=== PATIENT | female | born 1955 | race American Indian/Alaskan Native ===

== ENCOUNTER 2016-09-30 19:29 | Inpatient (IN) | payer MEDICAID ==
[2016-09-30 19:52] LABS: Basophils % (Auto) 0.7 % (0.0-1.8); Eosinophils % (Auto) 1.5 % (0.0-4.3); Hematocrit 22.8 % (30.3-42.9); Hemoglobin 7.5 gm/dl (10.1-14.3); Mean Corpuscular HGB Conc 33 % (30-34); Mean Corpuscular Hemoglobin 26 pg (28-32); Mean Corpuscular Volume 80 fl (79-97); Platelet Count 181 K/mm3 (140-440); Red Blood Count 2.86 M/mm3 (3.65-5.03); Red Cell Distribution Width 16.6 % (13.2-15.2); White Blood Count 5.1 K/mm3 (4.5-11.0)
[2016-09-30 19:59] LABS: INR 1.36 (0.87-1.13)
[2016-09-30 20:00] LABS: Partial Thromboplastin Time 39.8 Sec. (24.2-36.6)
--- NOTE | 2016-09-30 20:03 | Emergency Department Report ---
HPI - General Chief Complaint: Neuro Symptoms/Deficit Time Seen by Provider: 09/30/16 20:00 - HPI HPI: This is a 61 year-old female presents to the emergency department by EMS from home with complaint of generalized weakness, fatigue and altered mental status. Per EMS, a Family or friend who is at the house says that the patient has been sleeping all day but when she woke up she was altered and remained nonverbal. The patient is in fact nonverbal and therefore a poor historian about her current condition or any past medical history. Family is now bedside and says that the patient has been altered since sometime yesterday. She was sleeping throughout most the day and just prior to presentation she was awake but obviously confused and nonverbal. She has a past medical history that includes insulin-dependent diabetes, peripheral neuropathy and hypertension. ED Past Medical Hx - Past Medical History Previous Medical History?: Yes Hx Hypertension: Yes Hx Congestive Heart Failure: Yes Hx Diabetes: Yes - Surgical History Past Surgical History?: No - Social History Smoking Status: Unknown if ever smoked - Medications Home Medications: Home Medications Medication Instructions Recorded Confirmed Last Taken Type Allopurinol [Zyloprim] 100 mg PO QDAY PRN 09/30/16 09/30/16 Unknown History Aspirin [Adult Low Dose Aspirin EC] 81 mg PO QDAY 09/30/16 09/30/16 Unknown History AtorvaSTATin [Lipitor] 80 mg PO QHS 09/30/16 09/30/16 Unknown History Bumetanide [Bumetanide 2 mg tab] 3 mg PO BID 09/30/16 09/30/16 Unknown History Carvedilol [Coreg] 25 mg PO BID 09/30/16 09/30/16 Unknown History Cholecalciferol Vit D3 [Vitamin D3] 1 tab PO QDAY 09/30/16 09/30/16 Unknown History Clopidogrel Bisulfate [Plavix] 75 mg PO QDAY 09/30/16 09/30/16 Unknown History Gabapentin [Neurontin] 300 mg PO TID PRN 09/30/16 09/30/16 Unknown History Hydrochlorothiazide [HCTZ] 25 mg PO QDAY 09/30/16 09/30/16 Unknown History Metolazone [Zaroxolyn] 4 tab PO BID 09/30/16 09/30/16 Unknown History amLODIPine [Norvasc] 10 mg PO QDAY 09/30/16 09/30/16 Unknown History hydrALAZINE [Apresoline TAB] 25 mg PO Q8H 09/30/16 09/30/16 Unknown History ED Review of Systems ROS: Stated complaint: GENERAL WEAKNESS Other details as noted in HPI Comment: Unobtainable due to pts medical conditions Physical Exam - Physical Exam Physical Exam: GENERAL: The patient is well-developed well-nourished. HEENT: Normocephalic. Atraumatic. Extraocular motions are intact. Patient has moist mucous membranes. Physical reactive to light bilaterally. NECK: Supple. Trachea is midline. CHEST/LUNGS: Clear to auscultation. There is no respiratory distress noted. HEART/CARDIOVASCULAR: Regular. There is no tachycardia. There is no gallop rub or murmur. ABDOMEN: Abdomen is soft, nontender. Patient has normal bowel sounds. There is no abdominal distention. SKIN: Skin is warm and dry. NEURO: Patient is awake but appears confused. She is not following any commands. Withdraws to painful stimuli. MUSCULOSKELETAL: There is no tenderness or deformity. There is no limitation range of motion. ED Medical Decision Making - Lab Data Result diagrams: 09/30/16 19:35 09/30/16 19:35 - EKG Data -: EKG Interpreted by Me EKG shows normal: sinus rhythm, axis, intervals, QRS complexes, ST-T waves ( nonspecific ST-T waves) Rate: normal - EKG Data When compared to previous EKG there are: previous EKG unavailable Interpretation: nonspecific ST-T wave francis - Radiology Data Radiology results: report reviewed interpreted by me: CT of the head does not show any acute bleed, shift, mass or any other acute process. - Medical Decision Making 61-year-old female presents to the emergency department with altered mental status after the patient was sleeping all day and then appeared wake but nonverbal and noncooperative. CT of the head does not show any bleed, shift, mass or any acute process. Patient has multiple abnormal labs. She has an anemia with a hemoglobin of 7.5. She has some kidney failure and while the family does say she has a history of renal insufficiency we do not have any previous visits to compare this to. There is no hyperkalemia but there is a BUN of 120 and an ammonia level of 170. There is a lactic acidosis. The patient appears to have uremic encephalopathy and hyperammonemia. She was given lactulose per rectum. She will be admitted to the hospital further evaluation and treatment has been accepted for admission by the hospitalist, Dr. Bazan. - Differential Diagnosis CVA, TIA, dementia, uremia, hyperammonemia Critical Care Time: No Critical care attestation.: If time is entered above; I have spent that time in minutes in the direct care of this critically ill patient, excluding procedure time. ED Disposition Clinical Impression: Uremic encephalopathy, Hyperammonemia, Lactic acidosis Altered mental status Qualifiers: Altered mental status type: unspecified Qualified Code(s): R41.82 - Altered mental status, unspecified Renal failure Qualifiers: Renal failure chronicity: acute on chronic Acute renal failure type: unspecified Chronic kidney disease stage: unspecified stage Qualified Code(s): N17.9 - Acute kidney failure, unspecified; N18.9 - Chronic kidney disease, unspecified Disposition: OP ADMIT IP TO THIS HOSP Is pt being admited?: Yes Condition: Serious Time of Disposition: 00:51
[2016-09-30 20:10] LABS: Calcium 9.2 mg/dL (8.4-10.2); Chloride 85.8 mmol/L (98-107); Potassium 3.9 mmol/L (3.6-5.0)
--- NOTE | 2016-09-30 20:12 | Cat Scan Report ---
FINAL REPORT PROCEDURE: CT HEAD/BRAIN WO CON TECHNIQUE: Computerized tomography of the head was performed without contrast material. HISTORY: neuro deficits \T\lt; 6hrs or sx present upon awakening COMPARISON: No prior studies are available for comparison. FINDINGS: There is patient motion artifact. No gross intracranial hemorrhage, mass, hydrocephalus, or acute territorial infarction is seen. The intracranial arteries are symmetric in density. Calvarium is intact. Visualized paranasal sinuses and mastoids are aerated. IMPRESSION: No CT evidence of acute abnormality
[2016-09-30 20:17] LABS: BUN/Creatinine Ratio 21.05
[2016-09-30] MEDS ORDERED: ZOFRAN ONE (20:24)
[2016-09-30] MEDS ORDERED: ZOFRAN IV ONE (20:30)
[2016-09-30 20:47] LABS: Albumin 3.5 g/dL (3.9-5); Albumin/Globulin Ratio 0.7 %; Bilirubin,Direct 0.4 mg/dL (0-0.2); Bilirubin,Indirect 0.4 mg/dL; Bilirubin,Total 0.8 mg/dL (0.1-1.2); Total Protein 8.5 g/dL (6.3-8.2)
[2016-09-30] MEDS ORDERED: CEPHULAC PR ONE (21:10)
[2016-09-30] MEDS ORDERED: ZOFRAN IV PRN (22:47)
[2016-09-30] MEDS ORDERED: TYLENOL PO PRN (22:47)
[2016-09-30 23:01] LABS: Urine Drugs of Abuse Note Disclamer
--- NOTE | 2016-09-30 23:02 | History and Physical Report ---
History of Present Illness Date of examination: 09/30/16 History of present illness: 61 year old woman with a history of hypertension, diabetes, CHF, chronic kidney disease, stage IV, anemia was brought to the emergency room because she was nonverbal. Family brought her to the emergency room for further evaluation. Review of system is unobtainable. History is per family PAST MEDICAL HISTORY:hypertension, diabetes, CHF, chronic kidney disease, anemia PAST SURGICAL HISTORY:None FAMILY HISTORY:hypertension SOCIAL HISTORY: Denies alcohol, tobacco, drugs per family Medications and Allergies Allergies Allergy/AdvReac Type Severity Reaction Status Date / Time No Known Allergies Allergy Unverified 09/30/16 19:33 Home Medications Medication Instructions Recorded Confirmed Last Taken Type Allopurinol [Zyloprim] 100 mg PO QDAY PRN 09/30/16 09/30/16 Unknown History Aspirin [Adult Low Dose Aspirin EC] 81 mg PO QDAY 09/30/16 09/30/16 Unknown History AtorvaSTATin [Lipitor] 80 mg PO QHS 09/30/16 09/30/16 Unknown History Bumetanide [Bumetanide 2 mg tab] 3 mg PO BID 09/30/16 09/30/16 Unknown History Carvedilol [Coreg] 25 mg PO BID 09/30/16 09/30/16 Unknown History Cholecalciferol Vit D3 [Vitamin D3] 1 tab PO QDAY 09/30/16 09/30/16 Unknown History Clopidogrel Bisulfate [Plavix] 75 mg PO QDAY 09/30/16 09/30/16 Unknown History Gabapentin [Neurontin] 300 mg PO TID PRN 09/30/16 09/30/16 Unknown History Hydrochlorothiazide [HCTZ] 25 mg PO QDAY 09/30/16 09/30/16 Unknown History Metolazone [Zaroxolyn] 4 tab PO BID 09/30/16 09/30/16 Unknown History amLODIPine [Norvasc] 10 mg PO QDAY 09/30/16 09/30/16 Unknown History hydrALAZINE [Apresoline TAB] 25 mg PO Q8H 09/30/16 09/30/16 Unknown History Active Meds: Active Medications Acetaminophen (Tylenol) 650 mg PO Q4H PRN PRN Reason: Pain MILD(1-3)/Fever >100.5/MERCEDES Enoxaparin Sodium (Lovenox) 30 mg SUB-Q QDAY SHARON Ondansetron HCl (Zofran) 4 mg IV Q8H PRN PRN Reason: N/V unrelieved by Reglan Exam - Physical Exam Narrative exam: Gen. appearance: Patient lying in bed, no apparent distress HEENT: Normocephalic, atraumatic, pupils equally round and reactive to light, extraocular movement intact, and no sclericterus,. No JVD or thyromegaly or nodule,neck supple, no carotid bruit ,mucous membranes moist, no exudate or erythema Heart: S1, S2, regular rate and rhythm Lungs: Clear to auscultation bilaterally, breathing comfortable Abdomen: Positive bowel sounds, nontender, nondistended, no organomegaly Extremity: No edema, cyanosis, clubbing Skin: No rash, nodules, warm, dry Neuro: Transfuse, difficult to assess - Constitutional Vitals: Temp Pulse Resp BP Pulse Ox 98.6 F 81 12 104/73 94 09/30/16 21:49 09/30/16 21:49 09/30/16 21:49 09/30/16 21:49 09/30/16 21:49 Results - Labs CBC & Chem 7: 10/01/16 16:35 10/01/16 02:05 Labs: Abnormal lab results 09/30/16 09/30/16 09/30/16 Range/Units 19:35 19:35 19:35 RBC 2.86 L (3.65-5.03) M/mm3 Hgb 7.5 L (10.1-14.3) gm/dl Hct 22.8 L (30.3-42.9) % MCH 26 L (28-32) pg RDW 16.6 H (13.2-15.2) % [place] % (Auto) 10.6 H (0.0-7.3) % PT 16.7 H (12.2-14.9) Sec. INR 1.36 H (0.87-1.13) APTT 39.8 H (24.2-36.6) Sec. Sodium 134 L (137-145) mmol/L Chloride 85.8 L (98-107) mmol/L BUN 120 H (7-17) mg/dL Creatinine 5.7 H (0.7-1.2) mg/dL Glucose 213 H (65-100) mg/dL Lactic Acid (0.7-2.0) mmol/L Direct Bilirubin (0-0.2) mg/dL Alkaline Phosphatase (35-129) units/L Ammonia (25-60) umol/L Troponin T 0.090 H (0.00-0.029) ng/mL Total Protein (6.3-8.2) g/dL Albumin (3.9-5) g/dL Triglycerides 164 H (2-149) mg/dL HDL Cholesterol 38 L (40-59) mg/dL Salicylates (2.8-20.0) mg/dL 09/30/16 09/30/16 09/30/16 Range/Units 20:15 20:15 20:15 RBC (3.65-5.03) M/mm3 Hgb (10.1-14.3) gm/dl Hct (30.3-42.9) % MCH (28-32) pg RDW (13.2-15.2) % [place] % (Auto) (0.0-7.3) % PT (12.2-14.9) Sec. INR (0.87-1.13) APTT (24.2-36.6) Sec. Sodium (137-145) mmol/L Chloride (98-107) mmol/L BUN (7-17) mg/dL Creatinine (0.7-1.2) mg/dL Glucose (65-100) mg/dL Lactic Acid 3.80 H* (0.7-2.0) mmol/L Direct Bilirubin 0.4 H (0-0.2) mg/dL Alkaline Phosphatase 241 H (35-129) units/L Ammonia 176.0 H (25-60) umol/L Troponin T (0.00-0.029) ng/mL Total Protein 8.5 H (6.3-8.2) g/dL Albumin 3.5 L (3.9-5) g/dL Triglycerides (2-149) mg/dL HDL Cholesterol (40-59) mg/dL Salicylates (2.8-20.0) mg/dL 09/30/16 Range/Units 20:15 RBC (3.65-5.03) M/mm3 Hgb (10.1-14.3) gm/dl Hct (30.3-42.9) % MCH (28-32) pg RDW (13.2-15.2) % [place] % (Auto) (0.0-7.3) % PT (12.2-14.9) Sec. INR (0.87-1.13) APTT (24.2-36.6) Sec. Sodium (137-145) mmol/L Chloride (98-107) mmol/L BUN (7-17) mg/dL Creatinine (0.7-1.2) mg/dL Glucose (65-100) mg/dL Lactic Acid (0.7-2.0) mmol/L Direct Bilirubin (0-0.2) mg/dL Alkaline Phosphatase (35-129) units/L Ammonia (25-60) umol/L Troponin T (0.00-0.029) ng/mL Total Protein (6.3-8.2) g/dL Albumin (3.9-5) g/dL Triglycerides (2-149) mg/dL HDL Cholesterol (40-59) mg/dL Salicylates < 0.3 L (2.8-20.0) mg/dL - Imaging and Cardiology CT Scan - head: report reviewed Assessment and Plan Assessment Acute on chronic renal failure Metabolic encephalopathy Elevated ammonia Elevated cardiac enzymes Hypertension Diabetes CHF, stable Anemia of chronic disease Plan Admits medicine Start gentle IV fluid, lactulose, consult renal. Case discussed with Dr. Castillo Obtain ultrasound of the abdomen Check cardiac enzymes, echo, consult cardiology Check fingersticks and initiate insulin sliding scale Start DVT prophylaxis with SCD Addendum Patient developed rectal bleed Do type and cross, transfuse as needed Check CAT scan of the abdomen and pelvis Cancel ultrasound, consult GI Hold further lactulose for now
[2016-09-30 23:09] LABS: Bacteria,Urine 1+ /HPF (Negative); Bilirubin,Urine NEG (Negative); Blood,Urine SM (Negative); Ketones,Urine NEG (Negative); Leukocyte Esterase,Urine NEG (Negative); Nitrite,Urine NEG (Negative); Urobilinogen,Urine < 2.0 mg/dL (<2.0)
[2016-09-30] MEDS ORDERED: NACL 0.9% 500 ML 500 ML IV ONE (23:12)
[2016-09-30] MEDS ORDERED: NACL 0.45% 1000 ML 1,000 ML IV SCH (23:45)
[2016-10-01] MEDS ORDERED: ATIVAN ONE (00:37)
--- NOTE | 2016-10-01 00:37 | Event Note ---
I was called about this consultation that patient doesn't need immediate dialysis however it was found the patient does have significantly elevated BUN and her agitation and confusion is somewhat acute in onset starting on the day of admission Patient does have a history of chronic renal failure and has been followed by [facility]. According to her sister she has been told to have stage IV renal failure needing dialysis but there was no immediate indication for dialysis at that point and her last follow-up visit. I believe patient does have other causes for acute change in mental status that needs to be intubated and ruled out She also does appear to have significantly and elevated ammonia level currently on statin therapy she will benefit from a GI evaluation on also may need to rule out any possibility of GI bleed Case was discussed with hospital medicine at length Also discussed with patient's sister over the phone at length We'll continue to follow and make recommendation from renal standpoint I believe there is no emergent indication for renal replacement therapy tonight given that her ammonia is significantly elevated, patient has normal potassium as well as no evidence of acidosis
[2016-10-01] MEDS ORDERED: ATIVAN IV ONE ×2 (00:42→00:48)
--- NOTE | 2016-10-01 02:31 | Cat Scan Report ---
FINAL REPORT PROCEDURE: CT ABDOMEN PELVIS WO CON TECHNIQUE: Computerized axial tomography of the abdomen and pelvis was performed without intravenous contrast. This study is performed without intravascular contrast material and its sensitivity for abdominal and pelvic pathology, including neoplasms, inflammation, abscess, free fluid, thrombosis, arterial dissection and infarction, is reduced compared with a contrast enhanced study. HISTORY: arf, rectal bleed COMPARISON: No prior studies are available for comparison. FINDINGS: Visualized lower thorax: No significant abnormality. Liver: There is fatty infiltration of the liver. Spleen: Normal size and attenuation. Gallbladder and biliary system: Normal. Pancreas: Normal. Adrenals: Normal. Kidneys: Both kidneys have a normal size. No hydronephrosis. No renal stones or masses.. GI tract: The stomach is normal. The small bowel has a normal caliber. No obstruction, ileus or enteritis. The cecum, appendix region and colon are normal. Moderate fecal debris in the colon and rectum. Findings consistent with constipation.. Lymph nodes and mesentery: Normal. Vasculature: Moderate atherosclerosis of the aorta and all branching vessels.. Bladder: There is a Lopez catheter within the urinary bladder. Some thickening of the urinary bladder wall is noted. Cystitis is suspected.. Reproductive organs: There is calcification within the uterus, fibroid formation is suspected.. Peritoneum: No free fluid. Musculoskeletal structures: No significant abnormality. Other: None. IMPRESSION: There is no evidence of intestinal or urinary tract obstruction. No ileus or enteritis. Moderate fecal debris in the colon and rectum consistent with constipation. Fatty infiltration of the liver. Calcified uterine fibroids are noted..
[2016-10-01 02:40] LABS: Basophils % (Auto) 0.4 % (0.0-1.8); Hematocrit 22.3 % (30.3-42.9); Hemoglobin 7.3 gm/dl (10.1-14.3); Mean Corpuscular HGB Conc 33 % (30-34); Mean Corpuscular Hemoglobin 26 pg (28-32); Mean Corpuscular Volume 79 fl (79-97); Platelet Count 162 K/mm3 (140-440); Red Blood Count 2.81 M/mm3 (3.65-5.03); Red Cell Distribution Width 16.4 % (13.2-15.2); White Blood Count 7.7 K/mm3 (4.5-11.0)
[2016-10-01 03:07] LABS: Chloride 80.7 mmol/L (98-107); Potassium 3.9 mmol/L (3.6-5.0)
[2016-10-01 03:09] LABS: Creatine Kinase MB 2.5 ng/mL (0.0-4.0)
[2016-10-01 03:17] LABS: BUN/Creatinine Ratio 20.32
[2016-10-01] MEDS ORDERED: CEPHULAC PR SCH (06:00)
--- NOTE | 2016-10-01 09:09 | Progress Note ---
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 appearance: Patient lying in bed, no apparent distress HEENT: Normocephalic, atraumatic, pupils equally round and reactive to light, extraocular movement intact, and no sclericterus,. No JVD or thyromegaly or nodule,neck supple, no carotid bruit ,mucous membranes moist, no exudate or erythema Heart: S1, S2, regular rate and rhythm Lungs: Clear to auscultation bilaterally, breathing comfortable Abdomen: Positive bowel sounds, nontender, nondistended, no organomegaly Extremity: No edema, cyanosis, clubbing Skin: No rash, nodules, warm, dry Neuro: Transfuse, difficult to assess - Vital Signs Vital signs: Vital Signs - 12hr 10/01/16 10/01/16 10/01/16 01:53 03:57 04:53 Temperature 98.9 F 97.6 F Pulse Rate 89 91 H Respiratory 20 20 20 Rate Blood Pressure 154/70 165/84 O2 Sat by Pulse 100 100 99 Oximetry 10/01/16 08:00 Temperature 97.3 F L Pulse Rate 82 Respiratory 18 Rate Blood Pressure 146/81 O2 Sat by Pulse 94 Oximetry - Lab 10/01/16 02:05 10/01/16 02:05 Most recent lab results Calcium 9.0 mg/dL (8.4-10.2) 10/01/16 02:05
[2016-10-01] MEDS ORDERED: LOVENOX SUB-Q SCH (10:00)
--- NOTE | 2016-10-01 10:19 | Ultrasound Report ---
Renal ultrasound: Renal failure. The right renal length is 10.5 cm and the left is 10.7 cm. Both kidneys appear to be slightly echogenic. There is no evident renal mass no hydronephrosis in either kidney. In the superior pole of the right kidney there is a small echogenic density measuring approximately 6.5 mm. Images of the urinary bladder demonstrate the presence of a Lopez catheter with only minimal urine. Impressions: Mildly echogenic kidneys consistent with medical renal disease.
--- NOTE | 2016-10-01 11:43 | Consultation ---
History of Present Illness Consult date: 10/01/16 Requesting physician: JOSE MENDEZ Consult reason: elevated troponin History of present illness: The pt is a 61 year old female with a past medical history significant for hypertension, diabetes, peripheral neuropathy, chronic kidney disease, anemia. The pt is nonverbal and withdrawn on evaluation and thus HPI is obtained per the records, no family at bedside currently. Pt presented to the emergency department by EMS from home with complaint of generalized weakness, fatigue and altered mental status. Per EMS, a family member or friend who is at the house says that the patient has been sleeping all day but when she woke up she was altered and remained nonverbal. Following admission, H/H was found to be 7.5/ 22.8, lactic acid 3.8, serum Cr 5.7, troponins mildly elevated (0.090 -> 0.126 - > 0.143) with CK-MB WNL and thus cardiology has been consulted for elevated troponins. Past History Past Medical History: anemia, diabetes, hyperlipidemia, other (peripheral neuropathy ) Medications and Allergies Allergies Allergy/AdvReac Type Severity Reaction Status Date / Time No Known Allergies Allergy Unverified 09/30/16 19:33 Home Medications Medication Instructions Recorded Confirmed Last Taken Type Allopurinol [Zyloprim] 100 mg PO QDAY PRN 09/30/16 09/30/16 Unknown History Aspirin [Adult Low Dose Aspirin EC] 81 mg PO QDAY 09/30/16 09/30/16 Unknown History AtorvaSTATin [Lipitor] 80 mg PO QHS 09/30/16 09/30/16 Unknown History Bumetanide [Bumetanide 2 mg tab] 3 mg PO BID 09/30/16 09/30/16 Unknown History Carvedilol [Coreg] 25 mg PO BID 09/30/16 09/30/16 Unknown History Cholecalciferol Vit D3 [Vitamin D3] 1 tab PO QDAY 09/30/16 09/30/16 Unknown History Clopidogrel Bisulfate [Plavix] 75 mg PO QDAY 09/30/16 09/30/16 Unknown History Gabapentin [Neurontin] 300 mg PO TID PRN 09/30/16 09/30/16 Unknown History Hydrochlorothiazide [HCTZ] 25 mg PO QDAY 09/30/16 09/30/16 Unknown History Metolazone [Zaroxolyn] 4 tab PO BID 09/30/16 09/30/16 Unknown History amLODIPine [Norvasc] 10 mg PO QDAY 09/30/16 09/30/16 Unknown History hydrALAZINE [Apresoline TAB] 25 mg PO Q8H 09/30/16 09/30/16 Unknown History Active Meds: Active Medications Acetaminophen (Tylenol) 650 mg PO Q4H PRN PRN Reason: Pain MILD(1-3)/Fever >100.5/MERCEDES Sodium Chloride (Nacl 0.9% 1000 Ml) 1,000 mls @ 125 mls/hr IV DIRECT SHARON Ondansetron HCl (Zofran) 4 mg IV Q8H PRN PRN Reason: N/V unrelieved by Reglan Review of Systems ROS unobtainable: due to mental status Physical Examination Last Vital Signs Temp 97.3 F L 10/01/16 08:00 Pulse 82 10/01/16 08:00 Resp 18 10/01/16 08:00 BP 146/81 10/01/16 08:00 Pulse Ox 100 10/01/16 10:57 General appearance: no acute distress, other (lethargic, withdrawn, nonverbal) HEENT: Positive: PERRL, Normocephaly, Mucus Membranes Moist Neck: Positive: neck supple, trachea midline Cardiac: Positive: Reg Rate and Rhythm, S1/S2, Systolic Murmur Lungs: Positive: clear to auscultation Neuro: Positive: Grossly Intact, Other (lethargic, withdrawn, nonverbal) Abdomen: Positive: Unremarkable, Soft, Active Bowel Sounds. Negative: Tender Skin: Positive: Clear. Negative: Rash, Wound Musculoskeletal: No Fluid Collection, No Pain, Normal Range of Motion Extremities: Absent: edema Results 10/01/16 02:05 10/01/16 02:05 Cardiac Enzymes 10/01/16 10/01/16 Range/Units 02:05 06:59 CK-MB (CK-2) 2.5 3.0 (0.0-4.0) ng/mL CBC 10/01/16 Range/Units 02:05 WBC 7.7 (4.5-11.0) K/mm3 RBC 2.81 L (3.65-5.03) M/mm3 Hgb 7.3 L (10.1-14.3) gm/dl Hct 22.3 L (30.3-42.9) % Plt Count 162 (140-440) K/mm3 Lymph # 0.6 L (1.2-5.4) K/mm3 [place] # 0.5 (0.0-0.8) K/mm3 Eos # 0.0 (0.0-0.4) K/mm3 Baso # 0.0 (0.0-0.1) K/mm3 Comprehensive Metabolic Panel 10/01/16 Range/Units 02:05 Sodium 133 L (137-145) mmol/L Potassium 3.9 (3.6-5.0) mmol/L Chloride 80.7 L (98-107) mmol/L Carbon Dioxide 21 L (22-30) mmol/L BUN 124 H (7-17) mg/dL Creatinine 6.1 H (0.7-1.2) mg/dL Glucose 312 H (65-100) mg/dL Calcium 9.0 (8.4-10.2) mg/dL - Imaging and Cardiology Echo: pending EKG: pending Assessment and Plan Assessment: AMS / encephalopathy - head CT with NAF. Lactic acidosis Elevated troponin - minimally elevated and flat with CK-MB WNL. ARF on CKD HTN DM Anemia Plan: Obtain 12-lead ECG. Obtain CXR. Obtain echo. The patient has been seen in conjunction with Dr. PRISCILA Jefferson who agrees with the assessment and plan of care.
[2016-10-01] MEDS: NACL 0.9% 1000 ML 1,000 ML IV SCH (11:45)
[2016-10-01] MEDS: CEPHULAC PO SCH ×2 (12:35→17:21)
--- NOTE | 2016-10-01 12:48 | XRay Report ---
AP CHEST: HISTORY: Abnormal breath sounds AP view of the chest demonstrates a normal mediastinal and cardiac contour with clear lungs and normal bony and soft tissue structures. IMPRESSION: Unremarkable AP chest.
[2016-10-01] MEDS ORDERED: NACL 0.9% 100 ML IV PRN (12:57)
--- NOTE | 2016-10-01 13:46 | Event Note ---
Date: 10/01/16 Nephrology has requested placement of a temporary dialysis catheter for initiation of hemodialysis. This will be performed today.
[2016-10-01] MEDS ORDERED: HEPARIN/NS 5000 UNIT/500ML(CATH LAB) 500 ML IR ONE (14:01)
[2016-10-01] MEDS ORDERED: XYLOCAINE 2% INFILTRATI ONE (14:02)
[2016-10-01] MEDS ORDERED: ANCEF/STERILE WATER 2 GM/20 ML 2 GM/20 ML SYRINGE IV ONE (14:18)
[2016-10-01] MEDS: HEPARIN 10,000 UNITS/10 ML ONE ×2 (14:43→14:44)
--- NOTE | 2016-10-01 15:04 | Consultation ---
History of Present Illness - Reason for Consult Consult date: 10/01/16 Anemia - History of Present Illness Pt was admitted with altered mental status changes. Sister states pt was well until yesterday, and noted mental status changes and altered behavior. Brought to ER and found to be anemic, and has known hx of CKD. Pt had rectal bleed in ER. No prior hx of GI bleed, no GI complaints at home. No hx of NSAID use, or PUD. Pt has chronic constipation, and has a hx of colonoscopy in 2015 or 2016. No abd pain known, N/V. Past History Past Medical History: anemia, diabetes, hyperlipidemia, other (peripheral neuropathy ) Medications and Allergies Allergies Allergy/AdvReac Type Severity Reaction Status Date / Time No Known Allergies Allergy Unverified 09/30/16 19:33 Home Medications Medication Instructions Recorded Confirmed Last Taken Type Allopurinol [Zyloprim] 100 mg PO QDAY PRN 09/30/16 09/30/16 Unknown History Aspirin [Adult Low Dose Aspirin EC] 81 mg PO QDAY 09/30/16 09/30/16 Unknown History AtorvaSTATin [Lipitor] 80 mg PO QHS 09/30/16 09/30/16 Unknown History Bumetanide [Bumetanide 2 mg tab] 3 mg PO BID 09/30/16 09/30/16 Unknown History Carvedilol [Coreg] 25 mg PO BID 09/30/16 09/30/16 Unknown History Cholecalciferol Vit D3 [Vitamin D3] 1 tab PO QDAY 09/30/16 09/30/16 Unknown History Clopidogrel Bisulfate [Plavix] 75 mg PO QDAY 09/30/16 09/30/16 Unknown History Gabapentin [Neurontin] 300 mg PO TID PRN 09/30/16 09/30/16 Unknown History Hydrochlorothiazide [HCTZ] 25 mg PO QDAY 09/30/16 09/30/16 Unknown History Metolazone [Zaroxolyn] 4 tab PO BID 09/30/16 09/30/16 Unknown History amLODIPine [Norvasc] 10 mg PO QDAY 09/30/16 09/30/16 Unknown History hydrALAZINE [Apresoline TAB] 25 mg PO Q8H 09/30/16 09/30/16 Unknown History Active Meds: Active Medications Acetaminophen (Tylenol) 650 mg PO Q4H PRN PRN Reason: Pain MILD(1-3)/Fever >100.5/MERCEDES Epoetin Denis (Epogen) 20,000 unit IV NONA PRN PRN Reason: hemodialysis Sodium Chloride (Nacl 0.9% 1000 Ml) 1,000 mls @ 125 mls/hr IV DIRECT SHARON Last Admin: 10/01/16 11:45 Dose: 125 mls/hr Sodium Chloride (Nacl 0.9%) 100 mls @ 999 mls/hr IV NONA PRN PRN Reason: Hypotension Lactulose (Cephulac) 20 gm PO Q6HR SHARON Last Admin: 10/01/16 12:35 Dose: 20 gm Ondansetron HCl (Zofran) 4 mg IV Q8H PRN PRN Reason: N/V unrelieved by Reglan Review of Systems ROS unobtainable: due to mental status Exam - Constitutional Vitals: Temp Pulse Resp BP Pulse Ox 97.4 F L 83 18 135/88 100 10/01/16 12:00 10/01/16 12:00 10/01/16 12:00 10/01/16 12:00 10/01/16 12:00 General appearance: Present: no acute distress, other (agitated, seen on fluoro table for Vas Cath) - EENT Eyes: Present: PERRL, EOM intact ENT: hearing intact - Respiratory Respiratory effort: normal Respiratory: bilateral: CTA (anteriorly) - Cardiovascular Rhythm: regular Heart Sounds: Present: S1 & S2 - Abdominal General gastrointestinal: Present: soft, non-tender - Rectal Rectal Exam: other (Dark red thin effluent in rectal tube) Results - Labs CBC & Chem 7: 10/01/16 02:05 10/01/16 02:05 Labs: Abnormal lab results 10/01/16 10/01/16 10/01/16 Range/Units 02:05 02:05 02:05 RBC 2.81 L (3.65-5.03) M/mm3 Hgb 7.3 L (10.1-14.3) gm/dl Hct 22.3 L (30.3-42.9) % MCH 26 L (28-32) pg RDW 16.4 H (13.2-15.2) % Lymph % (Auto) 8.4 L (13.4-35.0) % Lymph # 0.6 L (1.2-5.4) K/mm3 Seg Neutrophils % 84.9 H (40.0-70.0) % Sodium 133 L (137-145) mmol/L Chloride 80.7 L (98-107) mmol/L Carbon Dioxide 21 L (22-30) mmol/L BUN 124 H (7-17) mg/dL Creatinine 6.1 H (0.7-1.2) mg/dL Glucose 312 H (65-100) mg/dL Lactic Acid (0.7-2.0) mmol/L Ammonia (25-60) umol/L Troponin T 0.126 H* D (0.00-0.029) ng/mL Urine Creatinine (0.1-20.0) mg/dL Urine Total Protein (5-11.8) mg/dL 10/01/16 10/01/16 10/01/16 Range/Units 06:59 08:38 12:43 RBC (3.65-5.03) M/mm3 Hgb (10.1-14.3) gm/dl Hct (30.3-42.9) % MCH (28-32) pg RDW (13.2-15.2) % Lymph % (Auto) (13.4-35.0) % Lymph # (1.2-5.4) K/mm3 Seg Neutrophils % (40.0-70.0) % Sodium (137-145) mmol/L Chloride (98-107) mmol/L Carbon Dioxide (22-30) mmol/L BUN (7-17) mg/dL Creatinine (0.7-1.2) mg/dL Glucose (65-100) mg/dL Lactic Acid 3.20 H* (0.7-2.0) mmol/L Ammonia (25-60) umol/L Troponin T 0.143 H* (0.00-0.029) ng/mL Urine Creatinine 47.0 H (0.1-20.0) mg/dL Urine Total Protein 191 H (5-11.8) mg/dL 10/01/16 Range/Units 12:43 RBC (3.65-5.03) M/mm3 Hgb (10.1-14.3) gm/dl Hct (30.3-42.9) % MCH (28-32) pg RDW (13.2-15.2) % Lymph % (Auto) (13.4-35.0) % Lymph # (1.2-5.4) K/mm3 Seg Neutrophils % (40.0-70.0) % Sodium (137-145) mmol/L Chloride (98-107) mmol/L Carbon Dioxide (22-30) mmol/L BUN (7-17) mg/dL Creatinine (0.7-1.2) mg/dL Glucose (65-100) mg/dL Lactic Acid (0.7-2.0) mmol/L Ammonia 179.0 H (25-60) umol/L Troponin T (0.00-0.029) ng/mL Urine Creatinine (0.1-20.0) mg/dL Urine Total Protein (5-11.8) mg/dL Assessment and Plan 1. GI bleed - etiology unclear. Pt has acute renal failure. No prior hx of GI bleed or source. - monitor H/H and transfuse as needed - empiric PPI - keep NPO - RBC scan Discussed with Dr. Sheikh
--- NOTE | 2016-10-01 15:12 | Operative Report ---
Operative Report Operative Report: Procedure: Placement of a temporary RIJ dialysis catheter Date: 10/01/2016 Physician: Norma Ackerman MD Indication: 61 y/o F with acute renal failure Technique: The patient was placed in the supine position and prepped and draped in the usual sterile fashion. A timeout was performed. Local anesthetic was administered. Under continuous ultrasound guidance, a 21 gauge needle was used to access the RIJ vein. Via a micropuncture set, a J wire was advanced into the IVC. After tissue dilation, the dialysis catheter was advanced into the right atrium. The catheter was aspirated and flushed. Heparin was instilled, and sterile dressings were placed. The patient left the room in stable condition. Findings: 1. Success placement of a 16cm temporary dialysis catheter via the RIJ vein. 2. The catheter tip is in the right atrium, as confirmed by fluoroscopy. 3. The RIJ vein is patient and compressible.
--- NOTE | 2016-10-01 15:56 | Admit Criteria Form ---
Admission Criteria Documentation: MENTAL STATUS CHANGE Clinical Indications for Inpatient Care (Place 'X' for any and all applicable criteria): Ongoing inpatient care may be needed for 1 or more of the following(1)(2)(3)(5)( 6): [X ]I. 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 Danger to self or others not manageable at lower level of care [ ]III. Grave disability (eg, inability to perform self care necessary at lower level of care) [ ]IV. Agitation or inappropriate behavior interfering with care for primary condition (eg, attempting to discontinue lines or drains prematurely, unable to cooperate with respiratory care) [ ]V. Delirium [A] [D][E] as described by 1 or more of the following(26): [ ]a) Delirium due to alcohol or sedative [F] withdrawal [ ]b) Delirium of uncertain etiology that has not responded to appropriate empiric treatment [ ]c) Delirium that prevents performance of a life-sustaining function (eg, feeding or hydrating oneself) [ ]. General contraindications and/or Inappropriate clinical situations for Observational Care in patients with Mental Status Change, when ANY ONE of the following is required: [ ]a) Prediction of prolongation of LOS based on ANY ONE of the following may be considered as a contraindication for observational care 2, 3, 4, 5, 6, 7, 8, 9, 10, 11 [ ]i) Age > 65 yrs. [ ]ii) Patient arriving by ambulance [ ]iii) Patient with high acuity [ ]iv) Patient requiring vital sign monitoring [ ]v) Patient on IV medication [ ]b) Systolic blood pressures greater than or equal to 180mmHg 3, 12 [ ]c) Patient with altered mental status including delirium and other alteration of consciousness, (3) [ ]d) Patient whose discharge disposition will be to a penitentiary home or rehabilitation home should not be managed in Emergency Department Observation Unit. CMS rule requires 3 days hospital stay before such placement.3,13 [ ]e) Patient with failure to thrive due to broad array of etiologies 3,16,17 [ ]f) Inability to ambulate 3,14 Extended stay beyond goal length of stay for the primary condition may be needed until ALL of the following are present(3)(5): [ ]a) Underlying medical etiology of mental status change is absent, or has been established and adequately treated [ ]b) Danger to self or others is absent or manageable at lower level of care. [ ]c) Behavior crisis management, including physical or chemical restraints, is not required or available at lower level of car [ ]d) Substance or alcohol withdrawal is absent or manageable at lower level of care. [ ]e) Behavioral symptoms (eg, agitation, somnolence, inappropriate behavior) are absent, or are manageable at lower level of care. The original [facility] [employer] content created by [facility] [employer] has been revised. The portions of the content which have been revised are identified through the use of italic text or in bold, and [facility] has neither reviewed nor approved the modified material. All other unmodified content is copyright [facility] [employer]. Please see references footnoted in the original [facility] edition 2016 Admission Criteria Met: Yes
[2016-10-01] MEDS ORDERED: PROTONIX 80 MG in NACL 0.9% 100 ML IV SCH (16:00)
[2016-10-01] MEDS ORDERED: FLUSH HEPARIN IV SCH (16:00)
[2016-10-01] MEDS ORDERED: D50W (25GM) Syringe IV PRN (16:46)
[2016-10-01 16:55] LABS: Hematocrit 20.2 % (30.3-42.9); Hemoglobin 6.5 gm/dl (10.1-14.3)
--- NOTE | 2016-10-01 16:56 | Progress Note ---
Assessment and Plan Assessment and plan: Acute toxic metabolic encephalopathy - Likely from uremia - Patient has elevated ammonia level - She was given lactulose in the emergency department, we couldn't give her at the because she has upper and lower GI bleed - CT head negative - Supportive care, treat underlying cause GI bleed - Patient noted to have rectal bleed, there was also bleeding from upper GI when the nurse tries to put NG tube - GI consulted - Recommend IV Protonix, NPO - rectal tube showed dark blood Anemia multifactorial, from GI bleed or chronic kidney disease - will follow H&H q6h - Transfuse if hemoglobin is below 7 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 Hospitalist Physical - Physical exam Narrative exam: Patient is stuporous The patient appeared well nourished and normally developed. Vital signs as documented. Head exam is unremarkable. No scleral icterus . Neck is without jugular venous distension, thyromegaly, or carotid bruits. Lungs are clear to auscultation. Cardiac exam reveals regular rate and Rhythm. First and second heart sounds normal. No murmurs, rubs or gallops. Abdominal exam reveals obese abdomen. Extremities are nonedematous and both femoral and pedal pulses are normal. LINE INSTALLER TROLLEY: stuporous. - Constitutional Vitals: Temp Pulse Resp BP Pulse Ox 97.4 F L 83 18 135/88 100 10/01/16 12:00 10/01/16 12:00 10/01/16 12:00 10/01/16 12:00 10/01/16 12:00 General appearance: Present: no acute distress, other (agitated, seen on fluoro table for Vas Cath) Results - Labs CBC & Chem 7: 10/01/16 02:05 10/01/16 02:05 Labs: Laboratory Last Values WBC 7.7 K/mm3 (4.5-11.0) 10/01/16 02:05 RBC 2.81 M/mm3 (3.65-5.03) L 10/01/16 02:05 Hgb 7.3 gm/dl (10.1-14.3) L 10/01/16 02:05 Hct 22.3 % (30.3-42.9) L 10/01/16 02:05 MCV 79 fl (79-97) 10/01/16 02:05 MCH 26 pg (28-32) L 10/01/16 02:05 MCHC 33 % (30-34) 10/01/16 02:05 RDW 16.4 % (13.2-15.2) H 10/01/16 02:05 Plt Count 162 K/mm3 (140-440) 10/01/16 02:05 Lymph % (Auto) 8.4 % (13.4-35.0) L 10/01/16 02:05 [place] % (Auto) 6.3 % (0.0-7.3) 10/01/16 02:05 Eos % (Auto) 0.0 % (0.0-4.3) 10/01/16 02:05 Baso % (Auto) 0.4 % (0.0-1.8) 10/01/16 02:05 Lymph # 0.6 K/mm3 (1.2-5.4) L 10/01/16 02:05 [place] # 0.5 K/mm3 (0.0-0.8) 10/01/16 02:05 Eos # 0.0 K/mm3 (0.0-0.4) 10/01/16 02:05 Baso # 0.0 K/mm3 (0.0-0.1) 10/01/16 02:05 Seg Neutrophils % 84.9 % (40.0-70.0) H 10/01/16 02:05 Seg Neutrophils # 6.5 K/mm3 (1.8-7.7) 10/01/16 02:05 PT 16.7 Sec. (12.2-14.9) H 09/30/16 19:35 INR 1.36 (0.87-1.13) H 09/30/16 19:35 APTT 39.8 Sec. (24.2-36.6) H 09/30/16 19:35 Thrombin Time 17.9 Sec. (15.1-19.6) 09/30/16 19:35 Sodium 133 mmol/L (137-145) L 10/01/16 02:05 Potassium 3.9 mmol/L (3.6-5.0) 10/01/16 02:05 Chloride 80.7 mmol/L (98-107) L 10/01/16 02:05 Carbon Dioxide 21 mmol/L (22-30) L 10/01/16 02:05 Anion Gap 35 mmol/L 10/01/16 02:05 BUN 124 mg/dL (7-17) H 10/01/16 02:05 Creatinine 6.1 mg/dL (0.7-1.2) H 10/01/16 02:05 Estimated GFR 8 ml/min 10/01/16 02:05 BUN/Creatinine Ratio 20.32 % 10/01/16 02:05 Glucose 312 mg/dL (65-100) H 10/01/16 02:05 Lactic Acid 3.20 mmol/L (0.7-2.0) H* 10/01/16 12:43 Calcium 9.0 mg/dL (8.4-10.2) 10/01/16 02:05 Total Bilirubin 0.80 mg/dL (0.1-1.2) 09/30/16 20:15 Direct Bilirubin 0.4 mg/dL (0-0.2) H 09/30/16 20:15 Indirect Bilirubin 0.4 mg/dL 09/30/16 20:15 AST 12 units/L (5-40) 09/30/16 20:15 ALT 8 units/L (7-56) 09/30/16 20:15 Alkaline Phosphatase 241 units/L (35-129) H 09/30/16 20:15 Ammonia 179.0 umol/L (25-60) H 10/01/16 12:43 Total Creatine Kinase 125 units/L (30-135) 10/01/16 06:59 CK-MB (CK-2) 3.0 ng/mL (0.0-4.0) 10/01/16 06:59 CK-MB (CK-2) Rel Index 2.4 (0-4) 10/01/16 06:59 Troponin T 0.143 ng/mL (0.00-0.029) H* 10/01/16 06:59 Total Protein 8.5 g/dL (6.3-8.2) H 08/15/17 20:15 Albumin 3.5 g/dL (3.9-5) L 09/30/16 20:15 Albumin/Globulin Ratio 0.7 % 09/30/16 20:15 Triglycerides 164 mg/dL (2-149) H 09/30/16 19:35 Cholesterol 159 mg/dL (50-199) 09/30/16 19:35 LDL Cholesterol Direct 89 mg/dL (50-130) 09/30/16 19:35 HDL Cholesterol 38 mg/dL (40-59) L 09/30/16 19:35 Cholesterol/HDL Ratio 4.18 % 09/30/16 19:35 TSH 2.160 mlU/mL (0.270-4.200) 09/30/16 20:15 Urine Color Yellow (Yellow) 09/30/16 22:44 Urine Turbidity Clear (Clear) 09/30/16 22:44 Urine pH 7.0 (5.0-7.0) 09/30/16 22:44 Ur Specific [place] 1.009 (1.003-1.030) 09/30/16 22:44 Urine Protein 100 mg/dl mg/dL (Negative) 09/30/16 22:44 Urine Glucose (UA) 50 mg/dL (Negative) 09/30/16 22:44 Urine Ketones Neg mg/dL (Negative) 09/30/16 22:44 Urine Blood Sm (Negative) 09/30/16 22:44 Urine Nitrite Neg (Negative) 09/30/16 22:44 Urine Bilirubin Neg (Negative) 09/30/16 22:44 Urine Urobilinogen < 2.0 mg/dL (<2.0) 09/30/16 22:44 Ur Leukocyte Esterase Neg (Negative) 09/30/16 22:44 Urine WBC (Auto) 1.0 /HPF (0.0-6.0) 09/30/16 22:44 Urine RBC (Auto) 4.0 /HPF (0.0-6.0) 09/30/16 22:44 U Epithel Cells (Auto) 3.0 /HPF (0-13.0) 09/30/16 22:44 Urine Bacteria (Auto) 1+ /HPF (Negative) 09/30/16 22:44 Urine Creatinine 47.0 mg/dL (0.1-20.0) H 10/01/16 08:38 Protein/Creatinin Ratio 4.06 10/01/16 08:38 Urine Sodium 93 mEq/L 10/01/16 08:38 Urine Total Protein 191 mg/dL (5-11.8) H 10/01/16 08:38 Salicylates < 0.3 mg/dL (2.8-20.0) L 09/30/16 20:15 Urine Opiates Screen Presumptive negative 09/30/16 22:44 Urine Methadone Screen Presumptive negative 09/30/16 22:44 Acetaminophen < 15.0 ug/mL (10.0-30.0) 09/30/16 20:15 Ur Barbiturates Screen Presumptive negative 09/30/16 22:44 Ur Phencyclidine Scrn Presumptive negative 09/30/16 22:44 Ur Amphetamines Screen Presumptive negative 09/30/16 22:44 U Benzodiazepines Scrn Presumptive negative 09/30/16 22:44 Urine Cocaine Screen Presumptive negative 09/30/16 22:44 U Marijuana (THC) Screen Presumptive negative 09/30/16 22:44 Drugs of Abuse Note Disclamer 09/30/16 22:44 Hepatitis A IgM Ab Non-reactive (NonReactive) 10/01/16 09:54 Hep Bs Antigen Non-reactive (Negative) 10/01/16 09:54 Hep B Core IgM Ab Non-reactive (NonReactive) 10/01/16 09:54 Hepatitis C Antibody Non-reactive (NonReactive) 10/01/16 09:54 Blood Type O POSITIVE 10/01/16 00:40 Antibody Screen Negative 10/01/16 00:40
[2016-10-01] MEDS: NOVOLOG SUB-Q SCH (17:46)
[2016-10-01] MEDS ORDERED: NACL 0.9% 500 ML 500 ML IV SCH (18:10)
--- NOTE | 2016-10-01 18:28 | Event Note ---
Date: 10/01/16 Her hemoglobin dropped dwn to 6.5 and 2 units of blood was ordered. I have discussed the case with Dr Narvaez he agreed with the transfer to ICU but there are no enough nursing staff in the ICU and I notified the charge nurse. patient is critical and needs close monitoring. I have also discussed the situation with Dr Carcamo.
[2016-10-01 23:01] LABS: Hemoglobin 6.5 gm/dl (10.1-14.3)
[2016-10-01 23:07] LABS: Hematocrit 19.6 % (30.3-42.9)
[2016-10-02] MEDS: NACL 0.9% 1000 ML 1,000 ML IV SCH (00:08)
[2016-10-02] MEDS: CEPHULAC PO SCH ×4 (00:27→18:37)
[2016-10-02] MEDS: NOVOLOG SUB-Q SCH ×4 (00:27→18:36)
[2016-10-02 04:26] LABS: Basophils % (Auto) 0.2 % (0.0-1.8); Eosinophils % (Auto) 0.1 % (0.0-4.3); Hematocrit 22.8 % (30.3-42.9); Hemoglobin 7.6 gm/dl (10.1-14.3); Mean Corpuscular HGB Conc 33 % (30-34); Mean Corpuscular Hemoglobin 27 pg (28-32); Mean Corpuscular Volume 80 fl (79-97); Platelet Count 156 K/mm3 (140-440); Red Blood Count 2.85 M/mm3 (3.65-5.03); Red Cell Distribution Width 17.1 % (13.2-15.2); White Blood Count 7.5 K/mm3 (4.5-11.0)
[2016-10-02 04:42] LABS: Calcium 8.7 mg/dL (8.4-10.2); Chloride 90.3 mmol/L (98-107); Potassium 3.5 mmol/L (3.6-5.0)
[2016-10-02 04:51] LABS: BUN/Creatinine Ratio 23.58
[2016-10-02] MEDS: PROTONIX 80 MG in NACL 0.9% 100 ML IV SCH ×2 (05:24→18:32)
[2016-10-02 08:34] LABS: Hematocrit 25.8 % (30.3-42.9); Hemoglobin 8.7 gm/dl (10.1-14.3); Mean Corpuscular HGB Conc 34 % (30-34); Mean Corpuscular Hemoglobin 27 pg (28-32); Mean Corpuscular Volume 80 fl (79-97); Platelet Count 175 K/mm3 (140-440); Red Blood Count 3.21 M/mm3 (3.65-5.03); Red Cell Distribution Width 17.2 % (13.2-15.2); White Blood Count 8.5 K/mm3 (4.5-11.0)
[2016-10-02 09:05] LABS: Hematocrit 25.1 % (30.3-42.9); Hemoglobin 8.3 gm/dl (10.1-14.3)
--- NOTE | 2016-10-02 09:05 | Progress Note ---
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 appearance: Patient lying in bed, no apparent distress HEENT: Normocephalic, atraumatic, pupils equally round and reactive to light, extraocular movement intact, and no sclericterus,. No JVD or thyromegaly or nodule,neck supple, no carotid bruit ,mucous membranes moist, no exudate or erythema Heart: S1, S2, regular rate and rhythm Lungs: Clear to auscultation bilaterally, breathing comfortable Abdomen: Positive bowel sounds, nontender, nondistended, no organomegaly Extremity: No edema, cyanosis, clubbing Skin: No rash, nodules, warm, dry Neuro: Transfuse, difficult to assess - Vital Signs Vital signs: Vital Signs - 12hr 10/01/16 10/01/16 10/01/16 21:06 21:10 21:20 Temperature Pulse Rate 86 84 84 Respiratory 18 26 H 17 Rate Blood Pressure 138/65 138/65 O2 Sat by Pulse 100 100 Oximetry 10/01/16 10/01/16 10/01/16 21:30 21:40 21:50 Temperature Pulse Rate 83 86 86 Respiratory 16 19 18 Rate Blood Pressure 138/65 138/65 O2 Sat by Pulse 100 100 100 Oximetry 10/01/16 10/01/16 10/01/16 22:00 22:10 22:20 Temperature Pulse Rate 83 96 H 102 H Respiratory 14 12 15 Rate Blood Pressure 138/65 146/80 146/80 O2 Sat by Pulse 100 96 100 Oximetry 10/01/16 10/01/16 10/01/16 22:30 22:40 22:50 Temperature Pulse Rate 92 H 89 87 Respiratory 23 21 21 Rate Blood Pressure 146/80 146/80 146/80 O2 Sat by Pulse 100 100 100 Oximetry 10/01/16 10/01/16 10/01/16 23:00 23:10 23:20 Temperature Pulse Rate 95 H 90 87 Respiratory 24 22 19 Rate Blood Pressure 164/77 149/74 149/74 O2 Sat by Pulse 100 100 100 Oximetry 10/01/16 10/02/16 10/02/16 23:30 00:00 04:00 Temperature 97.8 F 97.9 F Pulse Rate 88 Respiratory 16 Rate Blood Pressure 149/74 O2 Sat by Pulse 100 Oximetry - Lab 10/02/16 08:44 10/02/16 04:10 Most recent lab results Calcium 8.7 mg/dL (8.4-10.2) 10/02/16 04:10 Urine Creatinine 47.0 mg/dL (0.1-20.0) H 10/01/16 08:38 Urine Sodium 93 mEq/L 10/01/16 08:38 Urine Total Protein 191 mg/dL (5-11.8) H 10/01/16 08:38
[2016-10-02] MEDS: COREG PO SCH ×2 (09:23→22:48)
[2016-10-02] MEDS: NORVASC PO SCH (09:23)
--- NOTE | 2016-10-02 09:59 | Gastroenterology Progress Note ---
Assessment and Plan 1.GI bleed -HGB 8.7 after transfusion of 2 units of PRBCs overnight -continue to monitor H&H and transfuse as needed -hold blood thinning medications -continue PPI -Keep NPO -will schedule for EGD today and bleeding scan -will follow Subjective Date of service: 10/02/16 Principal diagnosis: GI bleed Interval history: Patient non-verbal lethargic. Rectal tube with maroon dark stool, however nursing reports bright red blood in rectal tube overnight. NG tube with no hematemesis. Currently hemodynamically stable. Objective - Constitutional Vitals: Temp Pulse Resp BP Pulse Ox 97.6 F 98 H 16 176/76 100 10/02/16 08:00 10/02/16 09:23 10/01/16 23:30 10/02/16 09:23 10/01/16 23:30 General appearance: other (lethargic, nonverbal) - Respiratory Respiratory: bilateral: CTA (anterior) - Cardiovascular Rhythm: regular Heart Sounds: Present: S1 & S2 - Gastrointestinal General gastrointestinal: Present: soft, non-distended, normal bowel sounds - Integumentary Integumentary: Present: warm, dry - Labs CBC & Chem 7: 10/02/16 08:44 10/02/16 04:10 Labs: Laboratory Results - last 24 hr 10/01/16 10/01/16 10/01/16 00:40 08:38 08:45 WBC RBC Hgb Hct MCV MCH MCHC RDW Plt Count Lymph % (Auto) [place] % (Auto) Eos % (Auto) Baso % (Auto) Lymph # [place] # Eos # Baso # Seg Neutrophils % Seg Neutrophils # Sodium Potassium Chloride Carbon Dioxide Anion Gap BUN Creatinine Estimated GFR BUN/Creatinine Ratio Glucose POC Glucose 348 H Lactic Acid Calcium Ammonia Urine Creatinine 47.0 H Protein/Creatinin Ratio 4.06 Urine Sodium 93 Urine Total Protein 191 H Hepatitis A IgM Ab Hep Bs Antigen Hep B Core IgM Ab Hepatitis C Antibody Blood Type O POSITIVE Antibody Screen Negative Crossmatch See Detail 10/01/16 10/01/16 10/01/16 09:54 09:54 09:54 WBC RBC Hgb Hct MCV MCH MCHC RDW Plt Count Lymph % (Auto) [place] % (Auto) Eos % (Auto) Baso % (Auto) Lymph # [place] # Eos # Baso # Seg Neutrophils % Seg Neutrophils # Sodium Potassium Chloride Carbon Dioxide Anion Gap BUN Creatinine Estimated GFR BUN/Creatinine Ratio Glucose POC Glucose Lactic Acid Calcium Ammonia Urine Creatinine Protein/Creatinin Ratio Urine Sodium Urine Total Protein Hepatitis A IgM Ab Non-reactive Hep Bs Antigen Non-reactive Non-reactive Hep B Core IgM Ab Non-reactive Hepatitis C Antibody Non-reactive Non-reactive Blood Type Antibody Screen Crossmatch 10/01/16 10/01/16 10/01/16 12:43 12:43 12:54 WBC RBC Hgb Hct MCV MCH MCHC RDW Plt Count Lymph % (Auto) [place] % (Auto) Eos % (Auto) Baso % (Auto) Lymph # [place] # Eos # Baso # Seg Neutrophils % Seg Neutrophils # Sodium Potassium Chloride Carbon Dioxide Anion Gap BUN Creatinine Estimated GFR BUN/Creatinine Ratio Glucose POC Glucose 318 H Lactic Acid 3.20 H* Calcium Ammonia 179.0 H Urine Creatinine Protein/Creatinin Ratio Urine Sodium Urine Total Protein Hepatitis A IgM Ab Hep Bs Antigen Hep B Core IgM Ab Hepatitis C Antibody Blood Type Antibody Screen Crossmatch 10/01/16 10/01/16 10/01/16 16:35 17:14 22:45 WBC RBC Hgb 6.5 L 6.5 L Hct 20.2 L 19.6 L* MCV MCH MCHC RDW Plt Count Lymph % (Auto) [place] % (Auto) Eos % (Auto) Baso % (Auto) Lymph # [place] # Eos # Baso # Seg Neutrophils % Seg Neutrophils # Sodium Potassium Chloride Carbon Dioxide Anion Gap BUN Creatinine Estimated GFR BUN/Creatinine Ratio Glucose POC Glucose 292 H Lactic Acid Calcium Ammonia Urine Creatinine Protein/Creatinin Ratio Urine Sodium Urine Total Protein Hepatitis A IgM Ab Hep Bs Antigen Hep B Core IgM Ab Hepatitis C Antibody Blood Type Antibody Screen Crossmatch 10/01/16 10/02/16 10/02/16 23:22 04:10 04:10 WBC 7.5 RBC 2.85 L Hgb 7.6 L Hct 22.8 L MCV 80 MCH 27 L MCHC 33 RDW 17.1 H Plt Count 156 Lymph % (Auto) 10.5 L [place] % (Auto) 6.6 Eos % (Auto) 0.1 Baso % (Auto) 0.2 Lymph # 0.8 L [place] # 0.5 Eos # 0.0 Baso # 0.0 Seg Neutrophils % 82.6 H Seg Neutrophils # 6.2 Sodium 138 Potassium 3.5 L Chloride 90.3 L Carbon Dioxide 24 Anion Gap 27 BUN 125 H Creatinine 5.3 H Estimated GFR 10 BUN/Creatinine Ratio 23.58 Glucose 223 H POC Glucose 303 H Lactic Acid Calcium 8.7 Ammonia Urine Creatinine Protein/Creatinin Ratio Urine Sodium Urine Total Protein Hepatitis A IgM Ab Hep Bs Antigen Hep B Core IgM Ab Hepatitis C Antibody Blood Type Antibody Screen Crossmatch 10/02/16 10/02/16 10/02/16 05:16 08:21 08:44 WBC 8.5 RBC 3.21 L Hgb 8.7 L 8.3 L Hct 25.8 L 25.1 L MCV 80 MCH 27 L MCHC 34 RDW 17.2 H Plt Count 175 Lymph % (Auto) [place] % (Auto) Eos % (Auto) Baso % (Auto) Lymph # [place] # Eos # Baso # Seg Neutrophils % Seg Neutrophils # Sodium Potassium Chloride Carbon Dioxide Anion Gap BUN Creatinine Estimated GFR BUN/Creatinine Ratio Glucose POC Glucose 195 H Lactic Acid Calcium Ammonia Urine Creatinine Protein/Creatinin Ratio Urine Sodium Urine Total Protein Hepatitis A IgM Ab Hep Bs Antigen Hep B Core IgM Ab Hepatitis C Antibody Blood Type Antibody Screen Crossmatch 10/02/16 08:44 WBC RBC Hgb Hct MCV MCH MCHC RDW Plt Count Lymph % (Auto) [place] % (Auto) Eos % (Auto) Baso % (Auto) Lymph # [place] # Eos # Baso # Seg Neutrophils % Seg Neutrophils # Sodium Potassium Chloride Carbon Dioxide Anion Gap BUN Creatinine Estimated GFR BUN/Creatinine Ratio Glucose POC Glucose Lactic Acid Calcium Ammonia 104.0 H Urine Creatinine Protein/Creatinin Ratio Urine Sodium Urine Total Protein Hepatitis A IgM Ab Hep Bs Antigen Hep B Core IgM Ab Hepatitis C Antibody Blood Type Antibody Screen Crossmatch
--- NOTE | 2016-10-02 10:47 | Progress Note ---
Assessment and Plan Assessment: AMS / encephalopathy - head CT with NAF. GI bleed / anemia Lactic acidosis Elevated troponin - minimally elevated and flat with CK-MB WNL. ARF on CKD - s/p temporary RIJ dialysis catheter placement. HTN DM Plan: 12-lead EKG reviewed with NAF. CXR reviewed with NAF. Await echo. For EGD and bleeding scan per GI. The patient has been seen in conjunction with Dr. Joan Jefferson who agrees with the assessment and plan of care. Subjective Date of service: 10/02/16 Principal diagnosis: GI bleed Interval history: Pt resting in bed, semi-comatose. Was tx to ICU overnight. Received PRBC tx yesterday. S/p temporary RIJ dialysis catheter placement yesterday. VSS. Objective Last Vital Signs Temp 97.6 F 10/02/16 08:00 Pulse 98 H 10/02/16 09:23 Resp 16 10/01/16 23:30 BP 176/76 10/02/16 09:23 Pulse Ox 100 10/01/16 23:30 - Physical Examination General: Other (semi-comatose) HEENT: Positive: PERRL, Normocephaly, Mucus Membranes Moist Neck: Positive: neck supple, trachea midline Cardiac: Positive: Reg Rate and Rhythm, irregularly irregular, Systolic Murmur Lungs: Positive: Decreased Breath Sounds Neuro: Positive: Grossly Intact, Other (lethargic, withdrawn, nonverbal) Abdomen: Positive: Unremarkable, Soft, Active Bowel Sounds. Negative: Tender Skin: Positive: Clear. Negative: Rash, Wound Musculoskeletal: No Fluid Collection, No Pain, Normal Range of Motion Extremities: Absent: edema - Labs and Meds CBC 10/01/16 10/01/16 10/02/16 Range/Units 16:35 22:45 04:10 WBC 7.5 (4.5-11.0) K/mm3 RBC 2.85 L (3.65-5.03) M/mm3 Hgb 6.5 L 6.5 L 7.6 L (10.1-14.3) gm/dl Hct 20.2 L 19.6 L* 22.8 L (30.3-42.9) % Plt Count 156 (140-440) K/mm3 Lymph # 0.8 L (1.2-5.4) K/mm3 [place] # 0.5 (0.0-0.8) K/mm3 Eos # 0.0 (0.0-0.4) K/mm3 Baso # 0.0 (0.0-0.1) K/mm3 10/02/16 10/02/16 Range/Units 08:21 08:44 WBC 8.5 (4.5-11.0) K/mm3 RBC 3.21 L (3.65-5.03) M/mm3 Hgb 8.7 L 8.3 L (10.1-14.3) gm/dl Hct 25.8 L 25.1 L (30.3-42.9) % Plt Count 175 (140-440) K/mm3 Lymph # (1.2-5.4) K/mm3 [place] # (0.0-0.8) K/mm3 Eos # (0.0-0.4) K/mm3 Baso # (0.0-0.1) K/mm3 Comprehensive Metabolic Panel 10/02/16 Range/Units 04:10 Sodium 138 (137-145) mmol/L Potassium 3.5 L (3.6-5.0) mmol/L Chloride 90.3 L (98-107) mmol/L Carbon Dioxide 24 (22-30) mmol/L BUN 125 H (7-17) mg/dL Creatinine 5.3 H (0.7-1.2) mg/dL Glucose 223 H (65-100) mg/dL Calcium 8.7 (8.4-10.2) mg/dL - Imaging and Cardiology EKG: image reviewed Echo: pending - Telemetry EKG Rhythm: Sinus Rhythm - EKG Sinus rhythms and dysrhythmias: sinus rhythm Repolarization changes or abnormalities: nonspecific abnormality, ST segment, and/or T wave
[2016-10-02] MEDS ORDERED: NACL 0.9% 100 ML IV PRN (11:55)
[2016-10-02] MEDS ORDERED: NACL 0.9% 1000 ML 2,000 ML ONE (12:00)
[2016-10-02] MEDS ORDERED: WATER FOR IRRIG STERILE IR ONE (12:14)
[2016-10-02] MEDS ORDERED: WATER FOR IRRIG STERILE ONE (12:15)
[2016-10-02] MEDS ORDERED: DDAVP 25 MCG in NACL 0.9% 50 ML IV ONE (13:00)
--- NOTE | 2016-10-02 13:41 | Consultation ---
History of Present Illness - Reason for Consult Consult date: 10/02/16 GI Bleed Requesting physician: CHONG MCCORMICK - History of Present Illness 61 y/o female, brought in by family secondary to changes in mental state. Initially diagnosed as acute on chronic renal failure. admitted to the telemetry floor of medicine. Subsequently while in the ED, developed rectal bleeding. It appears H/H was stable at that time. While on floor, H/H dropped to 6.5. Hemodynamically patient was stable given change with bright red blood, transitioned to ICU. GI Has been consulted and plan is for scope, hopefully today. Patient is also new onset HD and had vascath placed on yesterday. Past History Past Medical History: anemia, diabetes, hyperlipidemia, other (peripheral neuropathy ) Medications and Allergies Allergies Allergy/AdvReac Type Severity Reaction Status Date / Time No Known Allergies Allergy Unverified 09/30/16 19:33 Home Medications Medication Instructions Recorded Confirmed Last Taken Type Allopurinol [Zyloprim] 100 mg PO QDAY PRN 09/30/16 09/30/16 Unknown History Aspirin [Adult Low Dose Aspirin EC] 81 mg PO QDAY 09/30/16 09/30/16 Unknown History AtorvaSTATin [Lipitor] 80 mg PO QHS 09/30/16 09/30/16 Unknown History Bumetanide [Bumetanide 2 mg tab] 3 mg PO BID 09/30/16 09/30/16 Unknown History Carvedilol [Coreg] 25 mg PO BID 09/30/16 09/30/16 Unknown History Cholecalciferol Vit D3 [Vitamin D3] 1 tab PO QDAY 09/30/16 09/30/16 Unknown History Clopidogrel Bisulfate [Plavix] 75 mg PO QDAY 09/30/16 09/30/16 Unknown History Gabapentin [Neurontin] 300 mg PO TID PRN 09/30/16 09/30/16 Unknown History Hydrochlorothiazide [HCTZ] 25 mg PO QDAY 09/30/16 09/30/16 Unknown History Metolazone [Zaroxolyn] 4 tab PO BID 09/30/16 09/30/16 Unknown History amLODIPine [Norvasc] 10 mg PO QDAY 09/30/16 09/30/16 Unknown History hydrALAZINE [Apresoline TAB] 25 mg PO Q8H 09/30/16 09/30/16 Unknown History Active Meds: Active Medications Acetaminophen (Tylenol) 650 mg PO Q4H PRN PRN Reason: Pain MILD(1-3)/Fever >100.5/MERCEDES Amlodipine Besylate (Norvasc) 10 mg PO QDAY [facility] Last Admin: 10/02/16 09:23 Dose: 10 mg Carvedilol (Coreg) 25 mg PO BID [facility] Last Admin: 10/02/16 09:23 Dose: 25 mg Dextrose (D50w (25gm)) 50 ml IV PRN PRN PRN Reason: Hypoglycemia Epoetin Denis (Epogen) 20,000 unit IV NONA PRN PRN Reason: hemodialysis Heparin Sodium (Porcine) (Heparin) 5,000 unit IV NONA PRN PRN Reason: hemodialysis Sodium Chloride (Nacl 0.9%) 100 mls @ 999 mls/hr IV NONA PRN PRN Reason: Hypotension Pantoprazole Sodium 80 mg/ (Sodium Chloride) 100 mls @ 10 mls/hr IV DIRECT SHARON PRN Reason: 8 MG/HR Last Admin: 10/02/16 05:24 Dose: 8 mg/hr, 10 mls/hr Sodium Chloride (Nacl 0.9%) 100 mls @ 999 mls/hr IV NONA PRN PRN Reason: Hypotension Insulin Aspart (Novolog) 0 units SUB-Q Q6HR SHARON PRN Reason: Protocol Last Admin: 10/02/16 05:26 Dose: 3 units Lactulose (Cephulac) 20 gm PO Q6HR [facility] Last Admin: 10/02/16 05:26 Dose: 20 gm Ondansetron HCl (Zofran) 4 mg IV Q8H PRN PRN Reason: N/V unrelieved by Reglan Review of Systems ROS unobtainable: due to mental status Exam - Constitutional Vitals: Temp Pulse Resp BP Pulse Ox 97.3 F L 54 L 16 120/54 100 10/02/16 12:00 10/02/16 13:23 10/02/16 11:20 10/02/16 13:23 10/01/16 23:30 Results - Labs CBC & Chem 7: 10/02/16 08:44 10/02/16 04:10 Labs: Abnormal lab results 10/01/16 10/01/16 10/01/16 Range/Units 00:40 08:45 12:43 RBC (3.65-5.03) M/mm3 Hgb (10.1-14.3) gm/dl Hct (30.3-42.9) % MCH (28-32) pg RDW (13.2-15.2) % Lymph % (Auto) (13.4-35.0) % Lymph # (1.2-5.4) K/mm3 Seg Neutrophils % (40.0-70.0) % Potassium (3.6-5.0) mmol/L Chloride (98-107) mmol/L BUN (7-17) mg/dL Creatinine (0.7-1.2) mg/dL Glucose (65-100) mg/dL POC Glucose 348 H (70-105) Ammonia 179.0 H (25-60) umol/L Crossmatch See Detail 10/01/16 10/01/16 10/01/16 Range/Units 12:54 16:35 17:14 RBC (3.65-5.03) M/mm3 Hgb 6.5 L (10.1-14.3) gm/dl Hct 20.2 L (30.3-42.9) % MCH (28-32) pg RDW (13.2-15.2) % Lymph % (Auto) (13.4-35.0) % Lymph # (1.2-5.4) K/mm3 Seg Neutrophils % (40.0-70.0) % Potassium (3.6-5.0) mmol/L Chloride (98-107) mmol/L BUN (7-17) mg/dL Creatinine (0.7-1.2) mg/dL Glucose (65-100) mg/dL POC Glucose 318 H 292 H (70-105) Ammonia (25-60) umol/L Crossmatch 10/01/16 10/01/16 10/02/16 Range/Units 22:45 23:22 04:10 RBC 2.85 L (3.65-5.03) M/mm3 Hgb 6.5 L 7.6 L (10.1-14.3) gm/dl Hct 19.6 L* 22.8 L (30.3-42.9) % MCH 27 L (28-32) pg RDW 17.1 H (13.2-15.2) % Lymph % (Auto) 10.5 L (13.4-35.0) % Lymph # 0.8 L (1.2-5.4) K/mm3 Seg Neutrophils % 82.6 H (40.0-70.0) % Potassium (3.6-5.0) mmol/L Chloride (98-107) mmol/L BUN (7-17) mg/dL Creatinine (0.7-1.2) mg/dL Glucose (65-100) mg/dL POC Glucose 303 H (70-105) Ammonia (25-60) umol/L Crossmatch 10/02/16 10/02/16 10/02/16 Range/Units 04:10 05:16 08:21 RBC 3.21 L (3.65-5.03) M/mm3 Hgb 8.7 L (10.1-14.3) gm/dl Hct 25.8 L (30.3-42.9) % MCH 27 L (28-32) pg RDW 17.2 H (13.2-15.2) % Lymph % (Auto) (13.4-35.0) % Lymph # (1.2-5.4) K/mm3 Seg Neutrophils % (40.0-70.0) % Potassium 3.5 L (3.6-5.0) mmol/L Chloride 90.3 L (98-107) mmol/L BUN 125 H (7-17) mg/dL Creatinine 5.3 H (0.7-1.2) mg/dL Glucose 223 H (65-100) mg/dL POC Glucose 195 H (70-105) Ammonia (25-60) umol/L Crossmatch 10/02/16 10/02/16 Range/Units 08:44 08:44 RBC (3.65-5.03) M/mm3 Hgb 8.3 L (10.1-14.3) gm/dl Hct 25.1 L (30.3-42.9) % MCH (28-32) pg RDW (13.2-15.2) % Lymph % (Auto) (13.4-35.0) % Lymph # (1.2-5.4) K/mm3 Seg Neutrophils % (40.0-70.0) % Potassium (3.6-5.0) mmol/L Chloride (98-107) mmol/L BUN (7-17) mg/dL Creatinine (0.7-1.2) mg/dL Glucose (65-100) mg/dL POC Glucose (70-105) Ammonia 104.0 H (25-60) umol/L Crossmatch - Imaging and Cardiology Chest x-ray: image reviewed (clear) Assessment and Plan 61 y/o female with acute on chronic renal failure, now in need of HD and possible GI bleed, suspect lower given BRBPR 1. HD per renal, catheter in place 2. Follow up GI recs and await results of endoscopy 3. Serial H/H's at least every 6 hours 4. Monitor platelets, function may be off given current uremia CCT 31 minutes.
[2016-10-02] MEDS: HEPARIN IV PRN (14:18)
[2016-10-02] MEDS ORDERED: DIPRIVAN 10 MG/ML IV ONE (14:21)
[2016-10-02] MEDS ORDERED: AMIDATE IV ONE (14:21)
--- NOTE | 2016-10-02 14:28 | Progress Note ---
Assessment and Plan Assessment and plan: Acute toxic metabolic encephalopathy - Likely from uremia - Patient has elevated ammonia level - She was given lactulose in the emergency department, we couldn't give her at the because she has upper and lower GI bleed and patient is NPO - CT head negative - Supportive care, treat underlying cause GI bleed - Patient has rectal bleeding, patient has rectal tube placed and and the stool is dark - GI consulted and will do EGD today - Recommend IV Protonix, NPO Anemia multifactorial, from GI bleed or chronic kidney disease - will follow H&H q6h - Patient was transfuse 2 units of blood and hemoglobin is 8.3 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 The aggregate critical care time was [34] minutes. This time is in addition to time spent performing reported procedures but includes the following: [x] Data Review and interpretation [x] Patient assessment and monitoring of vital signs [x] Documentation [x] Medication orders and management History Interval history: Patient was seen and evaluated this morning, patient is still confused. Hospitalist Physical - Physical exam Narrative exam: Patient is stuporous The patient appeared well nourished and normally developed. Vital signs as documented. Head exam is unremarkable. No scleral icterus . Neck is without jugular venous distension, thyromegaly, or carotid bruits. Lungs are clear to auscultation. Cardiac exam reveals regular rate and Rhythm. First and second heart sounds normal. No murmurs, rubs or gallops. Abdominal exam reveals obese abdomen. Extremities are nonedematous and both femoral and pedal pulses are normal. SIDING APPLICATOR: stuporous. - Constitutional Vitals: Temp Pulse Resp BP Pulse Ox 98.4 F 78 16 113/54 100 10/02/16 13:55 10/02/16 13:55 10/02/16 13:55 10/02/16 13:55 10/01/16 23:30 General appearance: Present: no acute distress, other (agitated, seen on fluoro table for Vas Cath) Results - Labs CBC & Chem 7: 10/02/16 08:44 10/02/16 04:10 Labs: Laboratory Last Values WBC 8.5 K/mm3 (4.5-11.0) 10/02/16 08:21 RBC 3.21 M/mm3 (3.65-5.03) L 10/02/16 08:21 Hgb 8.3 gm/dl (10.1-14.3) L 10/02/16 08:44 Hct 25.1 % (30.3-42.9) L 10/02/16 08:44 MCV 80 fl (79-97) 10/02/16 08:21 MCH 27 pg (28-32) L 10/02/16 08:21 MCHC 34 % (30-34) 10/02/16 08:21 RDW 17.2 % (13.2-15.2) H 10/02/16 08:21 Plt Count 175 K/mm3 (140-440) 10/02/16 08:21 Lymph % (Auto) 10.5 % (13.4-35.0) L 10/02/16 04:10 [place] % (Auto) 6.6 % (0.0-7.3) 10/02/16 04:10 Eos % (Auto) 0.1 % (0.0-4.3) 10/02/16 04:10 Baso % (Auto) 0.2 % (0.0-1.8) 10/02/16 04:10 Lymph # 0.8 K/mm3 (1.2-5.4) L 10/02/16 04:10 [place] # 0.5 K/mm3 (0.0-0.8) 10/02/16 04:10 Eos # 0.0 K/mm3 (0.0-0.4) 10/02/16 04:10 Baso # 0.0 K/mm3 (0.0-0.1) 10/02/16 04:10 Seg Neutrophils % 82.6 % (40.0-70.0) H 10/02/16 04:10 Seg Neutrophils # 6.2 K/mm3 (1.8-7.7) 10/02/16 04:10 PT 16.7 Sec. (12.2-14.9) H 09/30/16 19:35 INR 1.36 (0.87-1.13) H 09/30/16 19:35 APTT 39.8 Sec. (24.2-36.6) H 09/30/16 19:35 Thrombin Time 17.9 Sec. (15.1-19.6) 09/30/16 19:35 Sodium 138 mmol/L (137-145) 10/02/16 04:10 Potassium 3.5 mmol/L (3.6-5.0) L 10/02/16 04:10 Chloride 90.3 mmol/L (98-107) L 10/02/16 04:10 Carbon Dioxide 24 mmol/L (22-30) 10/02/16 04:10 Anion Gap 27 mmol/L 10/02/16 04:10 BUN 125 mg/dL (7-17) H 10/02/16 04:10 Creatinine 5.3 mg/dL (0.7-1.2) H 10/02/16 04:10 Estimated GFR 10 ml/min 10/02/16 04:10 BUN/Creatinine Ratio 23.58 % 10/02/16 04:10 Glucose 223 mg/dL (65-100) H 10/02/16 04:10 POC Glucose 195 (70-105) H 10/02/16 05:16 Lactic Acid 3.20 mmol/L (0.7-2.0) H* 10/01/16 12:43 Calcium 8.7 mg/dL (8.4-10.2) 10/02/16 04:10 Total Bilirubin 0.80 mg/dL (0.1-1.2) 09/30/16 20:15 Direct Bilirubin 0.4 mg/dL (0-0.2) H 09/30/16 20:15 Indirect Bilirubin 0.4 mg/dL 09/30/16 20:15 AST 12 units/L (5-40) 09/30/16 20:15 ALT 8 units/L (7-56) 09/30/16 20:15 Alkaline Phosphatase 241 units/L (35-129) H 09/30/16 20:15 Ammonia 104.0 umol/L (25-60) H 10/02/16 08:44 Total Creatine Kinase 125 units/L (30-135) 10/01/16 06:59 CK-MB (CK-2) 3.0 ng/mL (0.0-4.0) 10/01/16 06:59 CK-MB (CK-2) Rel Index 2.4 (0-4) 10/01/16 06:59 Troponin T 0.143 ng/mL (0.00-0.029) H* 10/01/16 06:59 Total Protein 8.5 g/dL (6.3-8.2) H 09/30/16 20:15 Albumin 3.5 g/dL (3.9-5) L 09/30/16 20:15 Albumin/Globulin Ratio 0.7 % 09/30/16 20:15 Triglycerides 164 mg/dL (2-149) H 09/30/16 19:35 Cholesterol 159 mg/dL (50-199) 09/30/16 19:35 LDL Cholesterol Direct 89 mg/dL (50-130) 09/30/16 19:35 HDL Cholesterol 38 mg/dL (40-59) L 09/30/16 19:35 Cholesterol/HDL Ratio 4.18 % 09/30/16 19:35 TSH 2.160 mlU/mL (0.270-4.200) 09/30/16 20:15 Urine Color Yellow (Yellow) 09/30/16 22:44 Urine Turbidity Clear (Clear) 09/30/16 22:44 Urine pH 7.0 (5.0-7.0) 09/30/16 22:44 Ur Specific [place] 1.009 (1.003-1.030) 09/30/16 22:44 Urine Protein 100 mg/dl mg/dL (Negative) 09/30/16 22:44 Urine Glucose (UA) 50 mg/dL (Negative) 09/30/16 22:44 Urine Ketones Neg mg/dL (Negative) 09/30/16 22:44 Urine Blood Sm (Negative) 09/30/16 22:44 Urine Nitrite Neg (Negative) 09/30/16 22:44 Urine Bilirubin Neg (Negative) 09/30/16 22:44 Urine Urobilinogen < 2.0 mg/dL (<2.0) 09/30/16 22:44 Ur Leukocyte Esterase Neg (Negative) 09/30/16 22:44 Urine WBC (Auto) 1.0 /HPF (0.0-6.0) 09/30/16 22:44 Urine RBC (Auto) 4.0 /HPF (0.0-6.0) 09/30/16 22:44 U Epithel Cells (Auto) 3.0 /HPF (0-13.0) 09/30/16 22:44 Urine Bacteria (Auto) 1+ /HPF (Negative) 09/30/16 22:44 Urine Creatinine 47.0 mg/dL (0.1-20.0) H 10/01/16 08:38 Protein/Creatinin Ratio 4.06 10/01/16 08:38 Urine Sodium 93 mEq/L 10/01/16 08:38 Urine Total Protein 191 mg/dL (5-11.8) H 10/01/16 08:38 Salicylates < 0.3 mg/dL (2.8-20.0) L 09/30/16 20:15 Urine Opiates Screen Presumptive negative 09/30/16 22:44 Urine Methadone Screen Presumptive negative 09/30/16 22:44 Acetaminophen < 15.0 ug/mL (10.0-30.0) 09/30/16 20:15 Ur Barbiturates Screen Presumptive negative 09/30/16 22:44 Ur Phencyclidine Scrn Presumptive negative 09/30/16 22:44 Ur Amphetamines Screen Presumptive negative 09/30/16 22:44 U Benzodiazepines Scrn Presumptive negative 09/30/16 22:44 Urine Cocaine Screen Presumptive negative 09/30/16 22:44 U Marijuana (THC) Screen Presumptive negative 09/30/16 22:44 Drugs of Abuse Note Disclamer 09/30/16 22:44 Hepatitis A IgM Ab Non-reactive (NonReactive) 10/01/16 09:54 Hep Bs Antigen Non-reactive (Negative) 10/01/16 09:54 Hep B Core IgM Ab Non-reactive (NonReactive) 10/01/16 09:54 Hepatitis C Antibody Non-reactive (NonReactive) 10/01/16 09:54 Blood Type O POSITIVE 10/01/16 00:40 Antibody Screen Negative 10/01/16 00:40 Crossmatch See Detail 10/01/16 00:40
--- NOTE | 2016-10-02 14:38 | Anesthesia Consultation ---
Anesthesia Consult and Med Hx Date of service: 10/02/16 - Airway ROM Head & Neck: Adequate Mental/Hyoid Distance: Adequate Intubation Access Assessment: Probably Good - Pulmonary Exam CTA: Yes - Cardiac Exam Cardiac Exam: RRR - Pre-Operative Health Status ASA Pre-Surgery Classification: ASA4 Proposed Anesthetic Plan: MAC - Cardiovascular System Hx Hypertension: Yes - Endocrine Hx Renal Disease: Yes (stage 4) Hx Insulin Dependent Diabetes: Yes - Additional Comments Anesthesia Medical History Comments: CHF. admitted with altered mental status
--- NOTE | 2016-10-02 14:42 | Anesthesia Day of Surgery ---
Anesthesia Day of Surgery - Day of Surgery Patient Examined: Yes Patient H&P Reviewed: Yes Patient is NPO: Yes Beta Blockers: Yes Cardiac Clearance: Yes
--- NOTE | 2016-10-02 15:15 | Post Operative Note ---
Pre-op diagnosis: Hematochezia Post-op diagnosis: other (Normal EGD) Findings: 1. Normal EGD Procedure: EGD Anesthesia: MAC Surgeon: YEVGENIY RUCKER Estimated blood loss: none Pathology: none Condition: stable Disposition: ICU (Normal EGD. LGI bleed, probably diverticular. Colonoscopy tomorrow if family agrees.)
[2016-10-02 16:56] LABS: Hematocrit 24.1 % (30.3-42.9)
[2016-10-02 18:28] LABS: Hematocrit 25.4 % (30.3-42.9); Hemoglobin 8.4 gm/dl (10.1-14.3)
[2016-10-03] MEDS: CEPHULAC PO SCH ×4 (00:18→17:28)
[2016-10-03] MEDS: NOVOLOG SUB-Q SCH ×4 (00:18→18:38)
[2016-10-03 00:59] LABS: Hematocrit 24.5 % (30.3-42.9); Hemoglobin 8.1 gm/dl (10.1-14.3)
[2016-10-03] MEDS ORDERED: GOLYTELY NGTUBE ONE (02:00)
[2016-10-03 04:56] LABS: Albumin 3.7 g/dL (3.8-4.8); Gamma Globulin 1.8 g/dL (0.8-1.7)
[2016-10-03 07:10] LABS: Basophils % (Auto) 0.5 % (0.0-1.8); Eosinophils % (Auto) 0.1 % (0.0-4.3); Hematocrit 24.3 % (30.3-42.9); Hemoglobin 8.1 gm/dl (10.1-14.3); Mean Corpuscular HGB Conc 33 % (30-34); Mean Corpuscular Hemoglobin 27 pg (28-32); Mean Corpuscular Volume 81 fl (79-97); Platelet Count 146 K/mm3 (140-440); Red Cell Distribution Width 17.1 % (13.2-15.2); White Blood Count 8.2 K/mm3 (4.5-11.0)
[2016-10-03 07:17] LABS: Calcium 8.5 mg/dL (8.4-10.2)
[2016-10-03 07:18] LABS: Chloride 96.7 mmol/L (98-107); Potassium 3.4 mmol/L (3.6-5.0)
[2016-10-03 07:21] LABS: Albumin 3.6 g/dL (3.9-5); Bilirubin,Direct 0.5 mg/dL (0-0.2); Bilirubin,Indirect 0.5 mg/dL; Total Protein 7.2 g/dL (6.3-8.2)
[2016-10-03] MEDS ORDERED: WATER FOR IRRIG STERILE IR ONE (07:48)
[2016-10-03] MEDS ORDERED: WATER FOR IRRIG STERILE ONE (07:49)
[2016-10-03] MEDS ORDERED: NACL 0.9% 1000 ML 1,000 ML ONE (09:27)
[2016-10-03] MEDS ORDERED: AMIDATE IV ONE (09:34)
--- NOTE | 2016-10-03 09:34 | Progress Note ---
Assessment and Plan Assessment: AMS / encephalopathy - head CT with NAF. GI bleed / anemia Lactic acidosis Elevated troponin - minimally elevated and flat with CK-MB WNL. ARF on CKD - s/p temporary RIJ dialysis catheter placement. HTN DM Plan: Await echo. For EGD with normal findings per GI. Awaiting colonoscopy per GI. The patient has been seen in conjunction with Dr. Joan Jefferson who agrees with the assessment and plan of care. Subjective Date of service: 10/03/16 Principal diagnosis: huber on ckd Interval history: Pt resting in bed, appears agitated, no purposeful responses noted. Was tx to ICU overnight. s/p EGD yesterday. H/H stable this AM. Objective Last Vital Signs Temp 97.4 F L 10/03/16 08:00 Pulse 86 10/03/16 05:00 Resp 12 10/02/16 15:26 BP 146/74 10/02/16 22:48 Pulse Ox 100 10/02/16 21:01 - Physical Examination General: Other (agitated) HEENT: Positive: PERRL, Normocephaly, Mucus Membranes Moist Neck: Positive: neck supple, trachea midline Neuro: Positive: Grossly Intact, Other (agitated) Abdomen: Positive: Unremarkable, Soft, Active Bowel Sounds. Negative: Tender Skin: Positive: Clear. Negative: Rash, Wound Musculoskeletal: No Fluid Collection, No Pain, Normal Range of Motion Extremities: Absent: edema - Labs and Meds Cardiac Enzymes 10/03/16 Range/Units 06:53 AST 24 (5-40) units/L CBC 10/02/16 10/02/16 10/03/16 Range/Units 15:29 18:00 00:31 WBC (4.5-11.0) K/mm3 RBC (3.65-5.03) M/mm3 Hgb 8.0 L 8.4 L 8.1 L (10.1-14.3) gm/dl Hct 24.1 L 25.4 L 24.5 L (30.3-42.9) % Plt Count (140-440) K/mm3 Lymph # (1.2-5.4) K/mm3 [place] # (0.0-0.8) K/mm3 Eos # (0.0-0.4) K/mm3 Baso # (0.0-0.1) K/mm3 10/03/16 Range/Units 06:53 WBC 8.2 (4.5-11.0) K/mm3 RBC 3.00 L (3.65-5.03) M/mm3 Hgb 8.1 L (10.1-14.3) gm/dl Hct 24.3 L (30.3-42.9) % Plt Count 146 (140-440) K/mm3 Lymph # 1.4 (1.2-5.4) K/mm3 [place] # 0.7 (0.0-0.8) K/mm3 Eos # 0.0 (0.0-0.4) K/mm3 Baso # 0.0 (0.0-0.1) K/mm3 Comprehensive Metabolic Panel 10/01/16 10/03/16 10/03/16 Range/Units 09:54 06:53 06:53 Sodium 142 (137-145) mmol/L Potassium 3.4 L (3.6-5.0) mmol/L Chloride 96.7 L (98-107) mmol/L Carbon Dioxide 24 (22-30) mmol/L BUN 72 H (7-17) mg/dL Creatinine 4.0 H (0.7-1.2) mg/dL Glucose 127 H (65-100) mg/dL Calcium 8.5 (8.4-10.2) mg/dL Direct Bilirubin 0.5 H (0-0.2) mg/dL Indirect Bilirubin 0.5 mg/dL AST 24 (5-40) units/L ALT 7 (7-56) units/L Alkaline Phosphatase 191 H (35-129) units/L Total Protein 7.2 (6.3-8.2) g/dL Albumin 3.7 L 3.6 L (3.8-4.8) g/dL - Imaging and Cardiology EKG: image reviewed Echo: pending - EKG Sinus rhythms and dysrhythmias: sinus rhythm Repolarization changes or abnormalities: nonspecific abnormality, ST segment, and/or T wave
[2016-10-03] MEDS: NACL 0.9% 1000 ML 1,000 ML IV SCH (10:00)
--- NOTE | 2016-10-03 10:42 | Progress Note ---
Subjective Principal diagnosis: huber on ckd Interval history: Patient was evaluated today for follow-up on multiple renal related issues, time of evaluation 2 PM Events of this hospitalization were noted, she has been initiated on renal replacement therapy Patient still continues to remain confused and agitated Noted to have GI bleed currently being followed by gastroenterology service Vital labs intake and output medications were reviewed Current medications: Reviewed Social history:Reviewed Family history: Reviewed General: Disoriented confused HEENT: No uremic order oral mucosa moist Neck: Supple without any thyromegaly mass or JVD Chest: Clear to auscultation occasional basilar crackles posteriorly Heart: Regular rate and rhythm S1 and S2 heard no S3-S4 Abdomen: Soft nontender no voluntary guarding rigidity or rebound Extremity: Dry skin minimal edema Psychiatry: No agitation and aggression noted Assessment and plan Advanced renal failure in a patient who has been initiated on renal replacement therapy, patient did receive one dialysis treatment yesterday currently alert lytes are stable BUN/creatinine satisfactory Encephalopathy still persist which I think is mostly resulting from elevated ammonia level to some degree also from renal failure rule out other causes, should be considered for neurology evaluation as well GI bleed, likely was causing ammonia to be elevated Mild hypokalemia to monitor and follow patient still continues to be encephalopathic Patient does have history of underlying stage IV chronic kidney disease and was being followed by [facility] Monitor renal-related parameters Likely hemodialysis tomorrow morning We'll continue to follow and make recommendations from renal standpoint Objective - Vital Signs Vital signs: Vital Signs - 12hr 10/02/16 10/03/16 10/03/16 22:48 05:00 08:00 Temperature 97.4 F L Pulse Rate 86 86 Blood Pressure 146/74 - Lab 10/03/16 16:49 10/03/16 06:53 Most recent lab results Calcium 8.5 mg/dL (8.4-10.2) 10/03/16 06:53 Urine Creatinine 47.0 mg/dL (0.1-20.0) H 10/01/16 08:38 Urine Sodium 93 mEq/L 10/01/16 08:38 Urine Total Protein 191 mg/dL (5-11.8) H 10/01/16 08:38
--- NOTE | 2016-10-03 11:42 | Post Operative Note ---
Pre-op diagnosis: GI bleed Post-op diagnosis: other (Old blood throughout the colon) Findings: 1. Pt had old blood and scattered stool throughout the colon. No active bleeding noted. No significant diverticula seen. Terminal ileum could not be intubated. Procedure: Colonoscopy Anesthesia: MAC Surgeon: YEVGENIY RUCKER Estimated blood loss: none Pathology: none Condition: stable Disposition: ICU (1. Bleeding scan(Consider CTA for ongoing active bleed, vs. IR consult) 2. Monitor H/H and transfuse as needed.)
--- NOTE | 2016-10-03 12:15 | Anesthesia Day of Surgery ---
Anesthesia Day of Surgery - Day of Surgery Patient Examined: Yes Patient H&P Reviewed: Yes Patient is NPO: Yes
[2016-10-03 12:17] LABS: Hematocrit 23.1 % (30.3-42.9); Hemoglobin 7.6 gm/dl (10.1-14.3)
--- NOTE | 2016-10-03 13:19 | Progress Note ---
Assessment and Plan 61 y/o female with acute on chronic renal failure, now in need of HD and possible GI bleed, suspect lower given BRBPR 1. Continue to monitor H/H 2. Despite stable numbers, with blood seen in colon will keep in ICU 24 more hours 3. Reviewed GI note, if drops again or bright red blood seen, will order bleeding scan vs CTA with IR consult 4. Follow up renal recs, unsure if they plan on HD again today or note 5. Overall prognosis is guarded CCT 31 minutes. Subjective Date of service: 10/03/16 Principal diagnosis: huber on ckd Interval history: Scoped from below by GI. Poor prep. Blood seen but nothing visualized as actively bleeding. H/H has held stable. No further transfusions. Objective - Constitutional Vitals: Vital Signs - 12hr 10/03/16 10/03/16 10/03/16 05:00 08:00 11:33 Temperature 97.4 F L 97.6 F Pulse Rate 86 78 Respiratory 13 Rate Blood Pressure 131/62 O2 Sat by Pulse 100 Oximetry 10/03/16 10/03/16 10/03/16 11:48 12:00 12:03 Temperature 97.8 F Pulse Rate 78 82 Respiratory 14 13 Rate Blood Pressure 131/64 141/57 O2 Sat by Pulse 100 100 Oximetry 10/03/16 12:54 Temperature Pulse Rate Respiratory Rate Blood Pressure O2 Sat by Pulse 98 Oximetry General appearance: Present: no acute distress (remains confused) - Respiratory Respiratory effort: normal Respiratory: bilateral: CTA - Labs CBC & Chem 7: 10/03/16 11:55 10/03/16 06:53 Labs: Abnormal lab results 10/01/16 10/01/16 10/02/16 Range/Units 00:40 09:54 11:42 RBC (3.65-5.03) M/mm3 Hgb (10.1-14.3) gm/dl Hct (30.3-42.9) % MCH (28-32) pg RDW (13.2-15.2) % [place] % (Auto) (0.0-7.3) % Seg Neutrophils % (40.0-70.0) % Potassium (3.6-5.0) mmol/L Chloride (98-107) mmol/L BUN (7-17) mg/dL Creatinine (0.7-1.2) mg/dL Glucose (65-100) mg/dL POC Glucose 206 H (70-105) Direct Bilirubin (0-0.2) mg/dL Alkaline Phosphatase (35-129) units/L Albumin 3.7 L (3.8-4.8) g/dL Gnuhp-4-Hoofquujk 0.5 H (0.2-0.3) g/dL Gamma Globulins 1.8 H (0.8-1.7) g/dL PEP Interpretation see below H Crossmatch See Detail 10/02/16 10/02/16 10/02/16 Range/Units 15:29 18:00 18:31 RBC (3.65-5.03) M/mm3 Hgb 8.0 L 8.4 L (10.1-14.3) gm/dl Hct 24.1 L 25.4 L (30.3-42.9) % MCH (28-32) pg RDW (13.2-15.2) % [place] % (Auto) (0.0-7.3) % Seg Neutrophils % (40.0-70.0) % Potassium (3.6-5.0) mmol/L Chloride (98-107) mmol/L BUN (7-17) mg/dL Creatinine (0.7-1.2) mg/dL Glucose (65-100) mg/dL POC Glucose 194 H (70-105) Direct Bilirubin (0-0.2) mg/dL Alkaline Phosphatase (35-129) units/L Albumin (3.8-4.8) g/dL Kexxh-9-Zupqujrvq (0.2-0.3) g/dL Gamma Globulins (0.8-1.7) g/dL PEP Interpretation Crossmatch 10/03/16 10/03/16 10/03/16 Range/Units 00:31 06:47 06:53 RBC 3.00 L (3.65-5.03) M/mm3 Hgb 8.1 L 8.1 L (10.1-14.3) gm/dl Hct 24.5 L 24.3 L (30.3-42.9) % MCH 27 L (28-32) pg RDW 17.1 H (13.2-15.2) % [place] % (Auto) 8.5 H (0.0-7.3) % Seg Neutrophils % 74.2 H (40.0-70.0) % Potassium (3.6-5.0) mmol/L Chloride (98-107) mmol/L BUN (7-17) mg/dL Creatinine (0.7-1.2) mg/dL Glucose (65-100) mg/dL POC Glucose 133 H (70-105) Direct Bilirubin (0-0.2) mg/dL Alkaline Phosphatase (35-129) units/L Albumin (3.8-4.8) g/dL Cnuyr-9-Iaczghsdh (0.2-0.3) g/dL Gamma Globulins (0.8-1.7) g/dL PEP Interpretation Crossmatch 10/03/16 10/03/16 10/03/16 Range/Units 06:53 06:53 11:55 RBC (3.65-5.03) M/mm3 Hgb 7.6 L (10.1-14.3) gm/dl Hct 23.1 L (30.3-42.9) % MCH (28-32) pg RDW (13.2-15.2) % [place] % (Auto) (0.0-7.3) % Seg Neutrophils % (40.0-70.0) % Potassium 3.4 L (3.6-5.0) mmol/L Chloride 96.7 L (98-107) mmol/L BUN 72 H (7-17) mg/dL Creatinine 4.0 H (0.7-1.2) mg/dL Glucose 127 H (65-100) mg/dL POC Glucose (70-105) Direct Bilirubin 0.5 H (0-0.2) mg/dL Alkaline Phosphatase 191 H (35-129) units/L Albumin 3.6 L (3.8-4.8) g/dL Tnnws-7-Kwzrttxid (0.2-0.3) g/dL Gamma Globulins (0.8-1.7) g/dL PEP Interpretation Crossmatch 10/03/16 Range/Units 12:19 RBC (3.65-5.03) M/mm3 Hgb (10.1-14.3) gm/dl Hct (30.3-42.9) % MCH (28-32) pg RDW (13.2-15.2) % [place] % (Auto) (0.0-7.3) % Seg Neutrophils % (40.0-70.0) % Potassium (3.6-5.0) mmol/L Chloride (98-107) mmol/L BUN (7-17) mg/dL Creatinine (0.7-1.2) mg/dL Glucose (65-100) mg/dL POC Glucose 146 H (70-105) Direct Bilirubin (0-0.2) mg/dL Alkaline Phosphatase (35-129) units/L Albumin (3.8-4.8) g/dL Qhajd-9-Fpyqcsdpq (0.2-0.3) g/dL Gamma Globulins (0.8-1.7) g/dL PEP Interpretation Crossmatch
--- NOTE | 2016-10-03 14:36 | Operative Report ---
COLONOSCOPY REPORT PROCEDURE: Colonoscopy. PREOPERATIVE DIAGNOSIS: Gastrointestinal bleed. POSTOPERATIVE DIAGNOSIS: Old blood noted throughout the whole colon, no active bleeding, poor prep. SEDATION: MAC by Anesthesia. HISTORY: The patient a 61-year-old woman with acute renal failure, who has recently been placed on dialysis. She has developed hematochezia. Upper endoscopy yesterday was normal. DESCRIPTION OF PROCEDURE: Indications, risks, and benefits were explained and consent was obtained from the patient's family. The patient was placed in left lateral decubitus position and sedated. [employer] video colonoscope was passed through the rectum after digital examination and passed with significant difficulty to the cecum which was identified by the ileocecal valve and the appendiceal orifice. Scope was then gradually withdrawn with close inspection of the mucosa. Prep was poor with old blood noted throughout the colon and scattered lumps of stool. As much of the colon as possible was visualized using copious lavage. FINDINGS: 1. Old blood in stool and some amount of scattered stool noted throughout the colon. No active bleeding noted. 2. Visualized mucosa was normal. No mass lesions were identified and no diverticulosis was noted. 3. Attempts to intubate the terminal ileum were unsuccessful. The patient tolerated the procedure well without immediate complications. IMPRESSION: Old blood noted throughout the colon, but no active bleeding. No bleeding source is noted. PLAN: 1. Monitor H and H and transfuse as needed. 2. RBC scan. JOB# [id number] HRC/NTS
[2016-10-03] MEDS: COREG PO SCH (15:05)
[2016-10-03] MEDS: NORVASC PO SCH (15:05)
--- NOTE | 2016-10-03 16:18 | Progress Note ---
Assessment and Plan Assessment and plan: Acute toxic metabolic encephalopathy - Likely from uremia - Patient has elevated ammonia level - She was given lactulose in the emergency department, we couldn't give her at the because she has upper and lower GI bleed and patient is NPO - CT head negative - Supportive care, treat underlying cause GI bleed - Patient has rectal bleeding, patient has rectal tube placed and and the stool is dark - GI consulted and EGD showed no site of bleeding, recommend CTA vs IR consult - Recommend IV Protonix Anemia multifactorial, from GI bleed or chronic kidney disease - will follow H&H q6h - Patient was transfuse 2 units of blood and hemoglobin is 7.2 - will transfuse if H/H is dropped below 7 Chronic kidney disease with uremic encephalopathy - Stage IV - Nephrology consulted and Patient started on HD - We will follow BMP - Patient has elevated ammonia level,179----->109 Hypertension - Currently controlled without any blood pressure medication History of CHF - Cardiology consulted DVT prophylaxis - SCD because of GI bleed Disposition - Continue ICU care The high probability of a clinically significant, sudden or life threatening deterioration of the [renal, neurologic, GI, CVS] system(s) required my full and direct attention, intervention and personal management. The aggregate critical care time was [34] minutes. This time is in addition to time spent performing reported procedures but includes the following: [x] Data Review and interpretation [x] Patient assessment and monitoring of vital signs [x] Documentation [x] Medication orders and management History Interval history: Patient was seen and evaluated this morning, patient is still confused. Hospitalist Physical - Physical exam Narrative exam: Patient is stuporous The patient appeared well nourished and normally developed. Vital signs as documented. Head exam is unremarkable. No scleral icterus . Neck is without jugular venous distension, thyromegaly, or carotid bruits. Lungs are clear to auscultation. Cardiac exam reveals regular rate and Rhythm. First and second heart sounds normal. No murmurs, rubs or gallops. Abdominal exam reveals obese abdomen. Extremities are nonedematous and both femoral and pedal pulses are normal. DIRECTOR [employer]NAG[employer]: stuporous. - Constitutional Vitals: Temp Pulse Resp BP Pulse Ox 97.7 F 82 13 141/57 98 10/03/16 15:53 10/03/16 12:03 10/03/16 12:03 10/03/16 12:03 10/03/16 12:54 General appearance: Present: no acute distress (remains confused) Results - Labs CBC & Chem 7: 10/03/16 11:55 10/03/16 06:53 Labs: Laboratory Last Values WBC 8.2 K/mm3 (4.5-11.0) 10/03/16 06:53 RBC 3.00 M/mm3 (3.65-5.03) L 10/03/16 06:53 Hgb 7.6 gm/dl (10.1-14.3) L 10/03/16 11:55 Hct 23.1 % (30.3-42.9) L 10/03/16 11:55 MCV 81 fl (79-97) 10/03/16 06:53 MCH 27 pg (28-32) L 10/03/16 06:53 MCHC 33 % (30-34) 10/03/16 06:53 RDW 17.1 % (13.2-15.2) H 10/03/16 06:53 Plt Count 146 K/mm3 (140-440) 10/03/16 06:53 Lymph % (Auto) 16.7 % (13.4-35.0) 10/03/16 06:53 [place] % (Auto) 8.5 % (0.0-7.3) H 10/03/16 06:53 Eos % (Auto) 0.1 % (0.0-4.3) 10/03/16 06:53 Baso % (Auto) 0.5 % (0.0-1.8) 10/03/16 06:53 Lymph # 1.4 K/mm3 (1.2-5.4) 10/03/16 06:53 [place] # 0.7 K/mm3 (0.0-0.8) 10/03/16 06:53 Eos # 0.0 K/mm3 (0.0-0.4) 10/03/16 06:53 Baso # 0.0 K/mm3 (0.0-0.1) 10/03/16 06:53 Seg Neutrophils % 74.2 % (40.0-70.0) H 10/03/16 06:53 Seg Neutrophils # 6.1 K/mm3 (1.8-7.7) 10/03/16 06:53 PT 16.7 Sec. (12.2-14.9) H 09/30/16 19:35 INR 1.36 (0.87-1.13) H 09/30/16 19:35 APTT 39.8 Sec. (24.2-36.6) H 09/30/16 19:35 Thrombin Time 17.9 Sec. (15.1-19.6) 09/30/16 19:35 Sodium 142 mmol/L (137-145) 10/03/16 06:53 Potassium 3.4 mmol/L (3.6-5.0) L 10/03/16 06:53 Chloride 96.7 mmol/L (98-107) L 10/03/16 06:53 Carbon Dioxide 24 mmol/L (22-30) 10/03/16 06:53 Anion Gap 25 mmol/L 10/03/16 06:53 BUN 72 mg/dL (7-17) H 10/03/16 06:53 Creatinine 4.0 mg/dL (0.7-1.2) H 10/03/16 06:53 Estimated GFR 14 ml/min 10/03/16 06:53 BUN/Creatinine Ratio 18.00 % 10/03/16 06:53 Glucose 127 mg/dL (65-100) H 10/03/16 06:53 POC Glucose 146 (70-105) H 10/03/16 12:19 Lactic Acid 1.30 mmol/L (0.7-2.0) 10/02/16 15:29 Calcium 8.5 mg/dL (8.4-10.2) 10/03/16 06:53 Total Bilirubin 1.00 mg/dL (0.1-1.2) 10/03/16 06:53 Direct Bilirubin 0.5 mg/dL (0-0.2) H 10/03/16 06:53 Indirect Bilirubin 0.5 mg/dL 10/03/16 06:53 AST 24 units/L (5-40) 10/03/16 06:53 ALT 7 units/L (7-56) 10/03/16 06:53 Alkaline Phosphatase 191 units/L (35-129) H 10/03/16 06:53 Ammonia 104.0 umol/L (25-60) H 10/02/16 08:44 Total Creatine Kinase 125 units/L (30-135) 10/01/16 06:59 CK-MB (CK-2) 3.0 ng/mL (0.0-4.0) 10/01/16 06:59 CK-MB (CK-2) Rel Index 2.4 (0-4) 10/01/16 06:59 Troponin T 0.143 ng/mL (0.00-0.029) H* 10/01/16 06:59 Serum Total Protein 7.7 g/dL (6.1-8.1) 10/01/16 09:54 Total Protein 7.2 g/dL (6.3-8.2) 10/03/16 06:53 Albumin 3.6 g/dL (3.9-5) L 10/03/16 06:53 Albumin/Globulin Ratio 1.0 % 10/03/16 06:53 Eevyp-9-Ipofhfvwk 0.5 g/dL (0.2-0.3) H 10/01/16 09:54 Mrmmy-4-Qrujunmfq 0.8 g/dL (0.5-0.9) 10/01/16 09:54 Beta Globulins 0.4 g/dL (0.2-0.5) 10/01/16 09:54 Gamma Globulins 1.8 g/dL (0.8-1.7) H 10/01/16 09:54 Abnorm Protein Band 1 see below 10/01/16 09:54 PEP Interpretation see below H 10/01/16 09:54 Triglycerides 164 mg/dL (2-149) H 09/30/16 19:35 Cholesterol 159 mg/dL (50-199) 09/30/16 19:35 LDL Cholesterol Direct 89 mg/dL (50-130) 09/30/16 19:35 HDL Cholesterol 38 mg/dL (40-59) L 09/30/16 19:35 Cholesterol/HDL Ratio 4.18 % 09/30/16 19:35 TSH 2.160 mlU/mL (0.270-4.200) 09/30/16 20:15 Urine Color Yellow (Yellow) 09/30/16 22:44 Urine Turbidity Clear (Clear) 09/30/16 22:44 Urine pH 7.0 (5.0-7.0) 09/30/16 22:44 Ur Specific [place] 1.009 (1.003-1.030) 09/30/16 22:44 Urine Protein 100 mg/dl mg/dL (Negative) 09/30/16 22:44 Urine Glucose (UA) 50 mg/dL (Negative) 09/30/16 22:44 Urine Ketones Neg mg/dL (Negative) 09/30/16 22:44 Urine Blood Sm (Negative) 09/30/16 22:44 Urine Nitrite Neg (Negative) 09/30/16 22:44 Urine Bilirubin Neg (Negative) 09/30/16 22:44 Urine Urobilinogen < 2.0 mg/dL (<2.0) 09/30/16 22:44 Ur Leukocyte Esterase Neg (Negative) 09/30/16 22:44 Urine WBC (Auto) 1.0 /HPF (0.0-6.0) 09/30/16 22:44 Urine RBC (Auto) 4.0 /HPF (0.0-6.0) 09/30/16 22:44 U Epithel Cells (Auto) 3.0 /HPF (0-13.0) 09/30/16 22:44 Urine Bacteria (Auto) 1+ /HPF (Negative) 09/30/16 22:44 Urine Creatinine 47.0 mg/dL (0.1-20.0) H 10/01/16 08:38 Protein/Creatinin Ratio 4.06 10/01/16 08:38 Urine Sodium 93 mEq/L 10/01/16 08:38 Urine Total Protein 191 mg/dL (5-11.8) H 10/01/16 08:38 Salicylates < 0.3 mg/dL (2.8-20.0) L 09/30/16 20:15 Urine Opiates Screen Presumptive negative 09/30/16 22:44 Urine Methadone Screen Presumptive negative 09/30/16 22:44 Acetaminophen < 15.0 ug/mL (10.0-30.0) 09/30/16 20:15 Ur Barbiturates Screen Presumptive negative 09/30/16 22:44 Ur Phencyclidine Scrn Presumptive negative 09/30/16 22:44 Ur Amphetamines Screen Presumptive negative 09/30/16 22:44 U Benzodiazepines Scrn Presumptive negative 09/30/16 22:44 Urine Cocaine Screen Presumptive negative 09/30/16 22:44 U Marijuana (THC) Screen Presumptive negative 09/30/16 22:44 Drugs of Abuse Note Disclamer 09/30/16 22:44 Hepatitis A IgM Ab Non-reactive (NonReactive) 10/01/16 09:54 Hep Bs Antigen Non-reactive (Negative) 10/01/16 09:54 Hep B Core IgM Ab Non-reactive (NonReactive) 10/01/16 09:54 Hepatitis C Antibody Non-reactive (NonReactive) 10/01/16 09:54 Blood Type O POSITIVE 10/01/16 00:40 Antibody Screen Negative 10/01/16 00:40 Crossmatch See Detail 10/01/16 00:40
[2016-10-03] MEDS: PROTONIX 80 MG in NACL 0.9% 100 ML IV SCH (16:41)
[2016-10-03 17:52] LABS: Hematocrit 23.1 % (30.3-42.9); Hemoglobin 7.7 gm/dl (10.1-14.3)
--- NOTE | 2016-10-03 17:59 | Operative Report ---
PROCEDURE: Upper endoscopy. PREOPERATIVE DIAGNOSIS: Gastrointestinal bleed. POSTOPERATIVE DIAGNOSIS: Normal upper endoscopy. SEDATION: MAC by Anesthesia. HISTORY: The patient is a 61-year-old woman with renal failure, who presented with an altered mental status and had GI bleeding. DESCRIPTION OF PROCEDURE: Indications, risks, and benefits were explained and consent was obtained per the patient's family. The patient was placed in left lateral decubitus position and sedated. [employer] video upper endoscope was passed through the mouth and oropharynx into the descending duodenum. Scope was then gradually withdrawn with close inspection of mucosa. FINDINGS: 1. Normal appearing esophagus. 2. Normal appearing gastric antrum, fundus, body, and cardia. 3. Normal appearing duodenal bulb and duodenum. The patient tolerated the procedure well without immediate complication. IMPRESSION: Normal upper endoscopy with no bleeding source identified. PLAN: Colonoscopy tomorrow. JOB# [id number] HRC/NTS
--- NOTE | 2016-10-03 22:24 | XRay Report ---
FINAL REPORT PROCEDURE: XR ABDOMEN 1V AP TECHNIQUE: AP view of the upper abdomen HISTORY: NG tube placement COMPARISON: No prior studies are available for comparison. FINDINGS: Nasogastric tube tip is in the mid stomach. Nonobstructive bowel gas pattern. No focal osseous lesion is seen. IMPRESSION: Nasogastric tube tip is in the mid stomach
[2016-10-04] MEDS: NACL 0.9% 1000 ML 1,000 ML IV SCH (00:01)
[2016-10-04] MEDS: NOVOLOG SUB-Q SCH ×3 (00:27→12:02)
[2016-10-04 01:42] LABS: Hemoglobin 6.2 gm/dl (10.1-14.3)
[2016-10-04 01:57] LABS: Hematocrit 19.4 % (30.3-42.9)
[2016-10-04] MEDS: PROTONIX 80 MG in NACL 0.9% 100 ML IV SCH ×2 (02:32→13:04)
[2016-10-04 05:16] LABS: Basophils % (Auto) 0.5 % (0.0-1.8); Eosinophils % (Auto) 0.6 % (0.0-4.3); Hematocrit 23.5 % (30.3-42.9); Hemoglobin 7.4 gm/dl (10.1-14.3); Mean Corpuscular HGB Conc 32 % (30-34); Mean Corpuscular Hemoglobin 27 pg (28-32); Mean Corpuscular Volume 85 fl (79-97); Platelet Count 144 K/mm3 (140-440); Red Blood Count 2.78 M/mm3 (3.65-5.03); Red Cell Distribution Width 17.1 % (13.2-15.2); White Blood Count 6.8 K/mm3 (4.5-11.0)
[2016-10-04 05:29] LABS: BUN/Creatinine Ratio 18.15; Calcium 8.6 mg/dL (8.4-10.2); Chloride 97.1 mmol/L (98-107); Potassium 3.1 mmol/L (3.6-5.0)
[2016-10-04] MEDS: CEPHULAC PO SCH ×3 (08:09→12:03)
--- NOTE | 2016-10-04 08:49 | Gastroenterology Progress Note ---
Assessment and Plan obscure overt gi bleeding - no further signs of active bleeding, h/h stable ( noted drop overnight, however improved with repeat labs this AM). Vital signs stable. Obtain bleeding scan if pt develops any signs of further bleeding ( does not appear to be the case at the time of rounds this morning, however if clinical course changes would obtain stat bleeding scan). -if no further signs of bleeding this morning, and labs stable, okay to start clear liquid diet from GI perspective -transfuse as needed -bleeding scan if rebleeds as above Subjective Date of service: 10/04/16 Principal diagnosis: GI bleed Interval history: Pt seen and examined. No further reported bleeding episodes since procedure yesterday. Noted drop in H/H overnight, however repeat showed improvement (did not receive blood transfusion). Denies abd pain or new complaints today. Objective - Constitutional Vitals: Temp Pulse Resp BP Pulse Ox 97.4 F L 77 13 133/64 99 10/04/16 07:30 10/04/16 00:00 10/03/16 12:03 10/04/16 00:00 10/03/16 22:00 General appearance: no acute distress - EENT ENT: other (dry mucous membranes, +NG tube) - Respiratory Respiratory effort: normal Respiratory: bilateral: CTA - Cardiovascular Rhythm: regular Heart Sounds: Present: S1 & S2 - Gastrointestinal General gastrointestinal: Present: soft, non-tender, non-distended - Labs CBC & Chem 7: 10/04/16 04:06 10/04/16 04:06 Labs: Laboratory Results - last 24 hr 10/03/16 10/03/16 10/03/16 11:55 12:19 16:49 WBC RBC Hgb 7.6 L 7.7 L Hct 23.1 L 23.1 L MCV MCH MCHC RDW Plt Count Lymph % (Auto) [place] % (Auto) Eos % (Auto) Baso % (Auto) Lymph # [place] # Eos # Baso # Seg Neutrophils % Seg Neutrophils # Sodium Potassium Chloride Carbon Dioxide Anion Gap BUN Creatinine Estimated GFR BUN/Creatinine Ratio Glucose POC Glucose 146 H Calcium 10/03/16 10/04/16 10/04/16 18:24 00:12 01:15 WBC RBC Hgb 6.2 L Hct 19.4 L* MCV MCH MCHC RDW Plt Count Lymph % (Auto) [place] % (Auto) Eos % (Auto) Baso % (Auto) Lymph # [place] # Eos # Baso # Seg Neutrophils % Seg Neutrophils # Sodium Potassium Chloride Carbon Dioxide Anion Gap BUN Creatinine Estimated GFR BUN/Creatinine Ratio Glucose POC Glucose 180 H 136 H Calcium 10/04/16 10/04/16 10/04/16 04:06 04:06 05:46 WBC 6.8 RBC 2.78 L Hgb 7.4 L Hct 23.5 L MCV 85 MCH 27 L MCHC 32 RDW 17.1 H Plt Count 144 Lymph % (Auto) 17.6 [place] % (Auto) 8.1 H Eos % (Auto) 0.6 Baso % (Auto) 0.5 Lymph # 1.2 [place] # 0.5 Eos # 0.0 Baso # 0.0 Seg Neutrophils % 73.2 H Seg Neutrophils # 5.0 Sodium 141 Potassium 3.1 L Chloride 97.1 L Carbon Dioxide 17 L D Anion Gap 30 BUN 69 H Creatinine 3.8 H Estimated GFR 15 BUN/Creatinine Ratio 18.15 Glucose 140 H POC Glucose 157 H Calcium 8.6
[2016-10-04] MEDS ORDERED: NACL 0.9% 500 ML 500 ML IV ONE (09:56)
[2016-10-04 10:14] LABS: Myeloperoxidase Antibody <1.0 AI (<1.0)
[2016-10-04] MEDS: NORVASC PO SCH (10:22)
[2016-10-04] MEDS: COREG PO SCH ×3 (10:22→22:27)
--- NOTE | 2016-10-04 10:58 | Progress Note ---
Assessment and Plan No significant cardiac symptoms today. Overall cardiac rhythm and status appears to be stable. Continue current management. Discussed with Dr. Narvaez. AMS / encephalopathy - head CT with NAF. GI bleed / anemia Lactic acidosis Elevated troponin - minimally elevated and flat with CK-MB WNL. ARF on CKD - s/p temporary RIJ dialysis catheter placement. HTN DM Plan: Await echo. - Patient Problems (1) Hypertension Current Visit: Yes Status: Acute Qualifiers: Hypertension type: H Subjective Date of service: 10/04/16 Principal diagnosis: GI bleed Interval history: Patient is feeling better today. No chest pain or difficulty in breathing. Discussed with Dr. Narvaez. Bleeding appears to have stabilized. Family in the room. Objective Vital Signs Temp Pulse Resp BP Pulse Ox 10/04/16 10:22 72 131/54 10/04/16 09:00 88 11 L 126/61 100 10/04/16 08:50 89 15 138/71 100 10/04/16 08:40 88 10 L 129/60 100 10/04/16 08:30 89 16 129/60 100 10/04/16 08:20 90 12 132/63 100 10/04/16 08:10 89 14 116/51 100 10/04/16 08:00 89 14 116/51 100 10/04/16 07:50 89 11 L 123/40 100 10/04/16 07:40 71 14 134/59 100 10/04/16 07:30 97.4 F L 72 12 115/54 100 10/04/16 07:20 71 11 L 133/55 100 10/04/16 07:10 72 12 138/57 100 10/04/16 07:00 72 13 138/57 100 10/04/16 06:54 134/59 100 10/04/16 06:40 72 13 126/54 10/04/16 06:30 72 13 126/54 100 10/04/16 06:20 72 14 123/53 100 10/04/16 06:10 74 13 120/49 10/04/16 06:00 71 14 120/49 10/04/16 05:50 73 13 110/49 10/04/16 05:40 74 16 125/55 10/04/16 05:30 71 12 125/55 98 10/04/16 05:20 71 12 118/51 97 10/04/16 05:10 73 18 116/51 100 17 05:00 70 12 116/51 97 17 04:50 71 12 113/45 100 17 04:40 71 14 124/57 100 17 04:30 71 13 124/57 99 17 04:20 71 13 131/55 100 17 04:10 72 13 121/58 98 10/04/16 04:00 97.6 F 71 16 121/58 100 17 03:50 71 18 123/54 100 17 03:40 70 12 121/45 100 10/04/17 03:30 71 13 121/45 100 10/04/16 03:20 72 11 L 118/44 10/04/16 03:10 71 13 126/50 100 17 03:00 72 13 126/50 100 10/04/16 02:50 75 13 135/55 10/04/16 02:40 72 16 126/54 100 10/04/16 02:30 71 12 126/54 100 10/04/16 02:20 71 13 117/45 100 10/04/16 02:10 71 13 141/64 100 10/04/16 02:00 72 11 L 141/64 100 10/04/16 01:50 72 16 142/64 100 10/04/16 01:40 72 12 127/67 100 10/04/16 01:30 73 17 127/67 100 10/04/16 01:20 73 13 141/64 100 10/04/16 01:10 75 14 140/64 100 10/04/16 01:00 76 13 140/64 100 17 00:50 76 16 129/55 100 17 00:00 77 133/64 10/03/17 23:46 98.4 F 18/17 22:00 99 1817 21:05 18 100 1817 20:32 97.9 F 18/17 18:44 70 18/17 15:53 97.7 F 18/17 12:54 98 18/17 12:03 82 13 141/57 100 17 12:00 97.8 F 17 11:48 78 14 131/64 100 10/03/16 11:33 97.6 F 78 13 131/62 100 - Physical Examination General: No Apparent Distress, Other (agitated) HEENT: Positive: PERRL, Normocephaly, Mucus Membranes Moist Neck: Positive: neck supple, trachea midline Cardiac: Positive: Reg Rate and Rhythm Lungs: Positive: clear to auscultation Neuro: Positive: Grossly Intact, Other (agitated) Abdomen: Positive: Unremarkable, Soft, Active Bowel Sounds. Negative: Tender Skin: Positive: Clear. Negative: Rash, Wound Musculoskeletal: No Fluid Collection, No Pain, Normal Range of Motion Extremities: Absent: edema - Labs and Meds CBC 10/03/16 10/03/16 10/04/16 Range/Units 11:55 16:49 01:15 WBC (4.5-11.0) K/mm3 RBC (3.65-5.03) M/mm3 Hgb 7.6 L 7.7 L 6.2 L (10.1-14.3) gm/dl Hct 23.1 L 23.1 L 19.4 L* (30.3-42.9) % Plt Count (140-440) K/mm3 Lymph # (1.2-5.4) K/mm3 [place] # (0.0-0.8) K/mm3 Eos # (0.0-0.4) K/mm3 Baso # (0.0-0.1) K/mm3 10/04/16 Range/Units 04:06 WBC 6.8 (4.5-11.0) K/mm3 RBC 2.78 L (3.65-5.03) M/mm3 Hgb 7.4 L (10.1-14.3) gm/dl Hct 23.5 L (30.3-42.9) % Plt Count 144 (140-440) K/mm3 Lymph # 1.2 (1.2-5.4) K/mm3 [place] # 0.5 (0.0-0.8) K/mm3 Eos # 0.0 (0.0-0.4) K/mm3 Baso # 0.0 (0.0-0.1) K/mm3 Comprehensive Metabolic Panel 10/04/16 Range/Units 04:06 Sodium 141 (137-145) mmol/L Potassium 3.1 L (3.6-5.0) mmol/L Chloride 97.1 L (98-107) mmol/L Carbon Dioxide 17 L D (22-30) mmol/L BUN 69 H (7-17) mg/dL Creatinine 3.8 H (0.7-1.2) mg/dL Glucose 140 H (65-100) mg/dL Calcium 8.6 (8.4-10.2) mg/dL - Imaging and Cardiology EKG: image reviewed Echo: pending - EKG Sinus rhythms and dysrhythmias: sinus rhythm Repolarization changes or abnormalities: nonspecific abnormality, ST segment, and/or T wave
--- NOTE | 2016-10-04 11:04 | Progress Note ---
Assessment and Plan 61 y/o female with acute on chronic renal failure, now in need of HD and possible GI bleed, suspect lower given BRBPR 1. Reviewed GI note. Will obtaining bleeding scan if rebleeds or significant drop in hemoglobin. 2. Will transfuse one more unit of PRBC's. Spoke with IMS already. 3. Follow up renal recs, unsure if they plan on HD again today or note 4. Overall prognosis is guarded 5. Feel patient is stable enough for transfer out of ICU, spoke with IMS and they will place orders Subjective Date of service: 10/04/16 Principal diagnosis: GI bleed Interval history: No further witnessed episodes of bleeding. Hemodynamically remains stable. Mental status is slightly better today. Had a transient drop in H/H but repeat this am was 7.4. Objective - Constitutional Vitals: Vital Signs - 12hr 10/03/16 10/04/16 10/04/16 23:46 00:00 00:50 Temperature 98.4 F Pulse Rate 77 76 Respiratory 16 Rate Blood Pressure 133/64 129/55 O2 Sat by Pulse 100 Oximetry 10/04/16 10/04/16 10/04/16 01:00 01:10 01:20 Temperature Pulse Rate 76 75 73 Respiratory 13 14 13 Rate Blood Pressure 140/64 140/64 141/64 O2 Sat by Pulse 100 100 100 Oximetry 10/04/16 10/04/16 10/04/16 01:30 01:40 01:50 Temperature Pulse Rate 73 72 72 Respiratory 17 12 16 Rate Blood Pressure 127/67 127/67 142/64 O2 Sat by Pulse 100 100 100 Oximetry 10/04/16 10/04/16 10/04/16 02:00 02:10 02:20 Temperature Pulse Rate 72 71 71 Respiratory 11 L 13 13 Rate Blood Pressure 141/64 141/64 117/45 O2 Sat by Pulse 100 100 100 Oximetry 10/04/16 10/04/16 10/04/16 02:30 02:40 02:50 Temperature Pulse Rate 71 72 75 Respiratory 12 16 13 Rate Blood Pressure 126/54 126/54 135/55 O2 Sat by Pulse 100 100 Oximetry 10/04/16 10/04/16 10/04/16 03:00 03:10 03:20 Temperature Pulse Rate 72 71 72 Respiratory 13 13 11 L Rate Blood Pressure 126/50 126/50 118/44 O2 Sat by Pulse 100 100 Oximetry 10/04/16 10/04/16 10/04/16 03:30 03:40 03:50 Temperature Pulse Rate 71 70 71 Respiratory 13 12 18 Rate Blood Pressure 121/45 121/45 123/54 O2 Sat by Pulse 100 100 100 Oximetry 10/04/16 10/04/16 10/04/16 04:00 04:10 04:20 Temperature 97.6 F Pulse Rate 71 72 71 Respiratory 16 13 13 Rate Blood Pressure 121/58 121/58 131/55 O2 Sat by Pulse 100 98 100 Oximetry 10/04/16 10/04/16 10/04/16 04:30 04:40 04:50 Temperature Pulse Rate 71 71 71 Respiratory 13 14 12 Rate Blood Pressure 124/57 124/57 113/45 O2 Sat by Pulse 99 100 100 Oximetry 10/04/16 10/04/16 10/04/16 05:00 05:10 05:20 Temperature Pulse Rate 70 73 71 Respiratory 12 18 12 Rate Blood Pressure 116/51 116/51 118/51 O2 Sat by Pulse 97 100 97 Oximetry 10/04/16 10/04/16 10/04/16 05:30 05:40 05:50 Temperature Pulse Rate 71 74 73 Respiratory 12 16 13 Rate Blood Pressure 125/55 125/55 110/49 O2 Sat by Pulse 98 Oximetry 10/04/16 10/04/16 10/04/16 06:00 06:10 06:20 Temperature Pulse Rate 71 74 72 Respiratory 14 13 14 Rate Blood Pressure 120/49 120/49 123/53 O2 Sat by Pulse 100 Oximetry 10/04/16 10/04/16 10/04/16 06:30 06:40 06:54 Temperature Pulse Rate 72 72 Respiratory 13 13 Rate Blood Pressure 126/54 126/54 134/59 O2 Sat by Pulse 100 100 Oximetry 10/04/16 10/04/16 10/04/16 07:00 07:10 07:20 Temperature Pulse Rate 72 72 71 Respiratory 13 12 11 L Rate Blood Pressure 138/57 138/57 133/55 O2 Sat by Pulse 100 100 100 Oximetry 10/04/16 10/04/16 10/04/16 07:30 07:40 07:50 Temperature 97.4 F L Pulse Rate 72 71 89 Respiratory 12 14 11 L Rate Blood Pressure 115/54 134/59 123/40 O2 Sat by Pulse 100 100 100 Oximetry 10/04/16 10/04/16 10/04/16 08:00 08:10 08:20 Temperature Pulse Rate 89 89 90 Respiratory 14 14 12 Rate Blood Pressure 116/51 116/51 132/63 O2 Sat by Pulse 100 100 100 Oximetry 10/04/16 10/04/16 10/04/16 08:30 08:40 08:50 Temperature Pulse Rate 89 88 89 Respiratory 16 10 L 15 Rate Blood Pressure 129/60 129/60 138/71 O2 Sat by Pulse 100 100 100 Oximetry 10/04/16 10/04/16 09:00 10:22 Temperature Pulse Rate 88 72 Respiratory 11 L Rate Blood Pressure 126/61 131/54 O2 Sat by Pulse 100 Oximetry - Labs CBC & Chem 7: 10/04/16 04:06 10/04/16 04:06 Labs: Abnormal lab results 10/03/16 10/03/16 10/03/16 Range/Units 11:55 12:19 16:49 RBC (3.65-5.03) M/mm3 Hgb 7.6 L 7.7 L (10.1-14.3) gm/dl Hct 23.1 L 23.1 L (30.3-42.9) % MCH (28-32) pg RDW (13.2-15.2) % [place] % (Auto) (0.0-7.3) % Seg Neutrophils % (40.0-70.0) % Potassium (3.6-5.0) mmol/L Chloride (98-107) mmol/L Carbon Dioxide (22-30) mmol/L BUN (7-17) mg/dL Creatinine (0.7-1.2) mg/dL Glucose (65-100) mg/dL POC Glucose 146 H (70-105) 10/03/16 10/04/16 10/04/16 Range/Units 18:24 00:12 01:15 RBC (3.65-5.03) M/mm3 Hgb 6.2 L (10.1-14.3) gm/dl Hct 19.4 L* (30.3-42.9) % MCH (28-32) pg RDW (13.2-15.2) % [place] % (Auto) (0.0-7.3) % Seg Neutrophils % (40.0-70.0) % Potassium (3.6-5.0) mmol/L Chloride (98-107) mmol/L Carbon Dioxide (22-30) mmol/L BUN (7-17) mg/dL Creatinine (0.7-1.2) mg/dL Glucose (65-100) mg/dL POC Glucose 180 H 136 H (70-105) 10/04/16 10/04/16 10/04/16 Range/Units 04:06 04:06 05:46 RBC 2.78 L (3.65-5.03) M/mm3 Hgb 7.4 L (10.1-14.3) gm/dl Hct 23.5 L (30.3-42.9) % MCH 27 L (28-32) pg RDW 17.1 H (13.2-15.2) % [place] % (Auto) 8.1 H (0.0-7.3) % Seg Neutrophils % 73.2 H (40.0-70.0) % Potassium 3.1 L (3.6-5.0) mmol/L Chloride 97.1 L (98-107) mmol/L Carbon Dioxide 17 L D (22-30) mmol/L BUN 69 H (7-17) mg/dL Creatinine 3.8 H (0.7-1.2) mg/dL Glucose 140 H (65-100) mg/dL POC Glucose 157 H (70-105)
[2016-10-04] MEDS ORDERED: NACL 0.9% 100 ML IV PRN (11:37)
--- NOTE | 2016-10-04 11:39 | Progress Note ---
Subjective Principal diagnosis: GI bleed Interval history: Patient was evaluated today for follow-up on multiple renal related issues She is still remains encephalopathic at this time Hemoglobin has declined Noted to have GI bleed currently being followed by gastroenterology service Vital labs intake and output medications were reviewed Current medications: Reviewed Social history:Reviewed Family history: Reviewed General: Disoriented confused HEENT: No uremic order oral mucosa moist Neck: Supple without any thyromegaly mass or JVD Chest: Clear to auscultation occasional basilar crackles posteriorly Heart: Regular rate and rhythm S1 and S2 heard no S3-S4 Abdomen: Soft nontender no voluntary guarding rigidity or rebound Extremity: Dry skin minimal edema Psychiatry: No agitation and aggression noted Assessment and plan Advanced renal failure in a patient who has been initiated on renal replacement therapy, Patient will need to be dialyzed today and then will keep her on Thursday schedule as tolerated Patient does at least need one unit of packed red blood cell transfusion, currently ordered should be given on dialysis Patient does have history of advanced renal failure stage IV and was being followed by [facility] Encephalopathy multifactorial toxic metabolic uremic, also has had significantly elevated ammonia level Mild hypokalemia to monitor and follow, monitor closely Monitor renal-related parameters Likely hemodialysis tomorrow morning We'll continue to follow and make recommendations from renal standpoint Objective - Vital Signs Vital signs: Vital Signs - 12hr 10/03/16 10/04/16 10/04/16 23:46 00:00 00:50 Temperature 98.4 F Pulse Rate 77 76 Respiratory 16 Rate Blood Pressure 133/64 129/55 O2 Sat by Pulse 100 Oximetry 10/04/16 10/04/16 10/04/16 01:00 01:10 01:20 Temperature Pulse Rate 76 75 73 Respiratory 13 14 13 Rate Blood Pressure 140/64 140/64 141/64 O2 Sat by Pulse 100 100 100 Oximetry 10/04/16 10/04/16 10/04/16 01:30 01:40 01:50 Temperature Pulse Rate 73 72 72 Respiratory 17 12 16 Rate Blood Pressure 127/67 127/67 142/64 O2 Sat by Pulse 100 100 100 Oximetry 10/04/16 10/04/16 10/04/16 02:00 02:10 02:20 Temperature Pulse Rate 72 71 71 Respiratory 11 L 13 13 Rate Blood Pressure 141/64 141/64 117/45 O2 Sat by Pulse 100 100 100 Oximetry 10/04/16 10/04/16 10/04/16 02:30 02:40 02:50 Temperature Pulse Rate 71 72 75 Respiratory 12 16 13 Rate Blood Pressure 126/54 126/54 135/55 O2 Sat by Pulse 100 100 Oximetry 10/04/16 10/04/16 10/04/16 03:00 03:10 03:20 Temperature Pulse Rate 72 71 72 Respiratory 13 13 11 L Rate Blood Pressure 126/50 126/50 118/44 O2 Sat by Pulse 100 100 Oximetry 10/04/16 10/04/16 10/04/16 03:30 03:40 03:50 Temperature Pulse Rate 71 70 71 Respiratory 13 12 18 Rate Blood Pressure 121/45 121/45 123/54 O2 Sat by Pulse 100 100 100 Oximetry 10/04/16 10/04/16 10/04/16 04:00 04:10 04:20 Temperature 97.6 F Pulse Rate 71 72 71 Respiratory 16 13 13 Rate Blood Pressure 121/58 121/58 131/55 O2 Sat by Pulse 100 98 100 Oximetry 10/04/16 10/04/16 10/04/16 04:30 04:40 04:50 Temperature Pulse Rate 71 71 71 Respiratory 13 14 12 Rate Blood Pressure 124/57 124/57 113/45 O2 Sat by Pulse 99 100 100 Oximetry 10/04/16 10/04/16 10/04/16 05:00 05:10 05:20 Temperature Pulse Rate 70 73 71 Respiratory 12 18 12 Rate Blood Pressure 116/51 116/51 118/51 O2 Sat by Pulse 97 100 97 Oximetry 10/04/16 10/04/16 10/04/16 05:30 05:40 05:50 Temperature Pulse Rate 71 74 73 Respiratory 12 16 13 Rate Blood Pressure 125/55 125/55 110/49 O2 Sat by Pulse 98 Oximetry 10/04/16 10/04/16 10/04/16 06:00 06:10 06:20 Temperature Pulse Rate 71 74 72 Respiratory 14 13 14 Rate Blood Pressure 120/49 120/49 123/53 O2 Sat by Pulse 100 Oximetry 10/04/16 10/04/16 10/04/16 06:30 06:40 06:54 Temperature Pulse Rate 72 72 Respiratory 13 13 Rate Blood Pressure 126/54 126/54 134/59 O2 Sat by Pulse 100 100 Oximetry 0810/04/16 10/04/16 07:00 07:10 07:20 Temperature Pulse Rate 72 72 71 Respiratory 13 12 11 L Rate Blood Pressure 138/57 138/57 133/55 O2 Sat by Pulse 100 100 100 Oximetry 10/04/16 10/04/16 10/04/16 07:30 07:40 07:50 Temperature 97.4 F L Pulse Rate 72 71 89 Respiratory 12 14 11 L Rate Blood Pressure 115/54 134/59 123/40 O2 Sat by Pulse 100 100 100 Oximetry 10/04/16 10/04/16 10/04/16 08:00 08:10 08:20 Temperature Pulse Rate 89 89 90 Respiratory 14 14 12 Rate Blood Pressure 116/51 116/51 132/63 O2 Sat by Pulse 100 100 100 Oximetry 10/04/16 10/04/16 10/04/16 08:30 08:40 08:50 Temperature Pulse Rate 89 88 89 Respiratory 16 10 L 15 Rate Blood Pressure 129/60 129/60 138/71 O2 Sat by Pulse 100 100 100 Oximetry 10/04/16 10/04/16 09:00 10:22 Temperature Pulse Rate 88 72 Respiratory 11 L Rate Blood Pressure 126/61 131/54 O2 Sat by Pulse 100 Oximetry - Lab 10/04/16 04:06 10/04/16 04:06 Most recent lab results Calcium 8.6 mg/dL (8.4-10.2) 10/04/16 04:06 Urine Creatinine 47.0 mg/dL (0.1-20.0) H 10/01/16 08:38 Urine Sodium 93 mEq/L 10/01/16 08:38 Urine Total Protein 191 mg/dL (5-11.8) H 10/01/16 08:38
--- NOTE | 2016-10-04 12:57 | Progress Note ---
Assessment and Plan Assessment and plan: Acute toxic metabolic encephalopathy - Likely from uremia - Resolved Anemia secondary to GI bleed versus CKD - Patient hemoglobin this morning is 7.4, no gonzalez bleeding overnight, will transfuse 1 unit of blood - Continue Protonix Chronic kidney disease with uremic encephalopathy - Continue hemodialysis per nephrology Hypertension - Currently controlled without any blood pressure medication History of CHF - Cardiology consult appreciated DVT prophylaxis - SCD because of GI bleed Disposition - Transferred to the floor The high probability of a clinically significant, sudden or life threatening deterioration of the [renal, neurologic, GI, CVS] system(s) required my full and direct attention, intervention and personal management. The aggregate critical care time was [34] minutes. This time is in addition to time spent performing reported procedures but includes the following: [x] Data Review and interpretation [x] Patient assessment and monitoring of vital signs [x] Documentation [x] Medication orders and management History Interval history: Patient was seen and evaluated this morning, patient was alert and oriented. Hospitalist Physical - Physical exam Narrative exam: Patient is not in cardiopulmonary distress. The patient appeared well nourished and normally developed. Vital signs as documented. Head exam is unremarkable. No scleral icterus . Neck is without jugular venous distension, thyromegaly, or carotid bruits. Lungs are clear to auscultation. Cardiac exam reveals regular rate and Rhythm. First and second heart sounds normal. No murmurs, rubs or gallops. Abdominal exam reveals obese abdomen. Extremities are nonedematous and both femoral and pedal pulses are normal. CURRICULUM AND INSTRUCTION DIRECTOR: Alert and oriented 3. - Constitutional Vitals: Temp Pulse Resp BP Pulse Ox 97.4 F L 67 13 95/48 100 10/04/16 07:30 10/04/16 11:30 10/04/16 11:30 10/04/16 11:30 10/04/16 11:30 General appearance: Present: no acute distress (remains confused) Results - Labs CBC & Chem 7: 10/04/16 04:06 10/04/16 04:06 Labs: Laboratory Last Values WBC 6.8 K/mm3 (4.5-11.0) 10/04/16 04:06 RBC 2.78 M/mm3 (3.65-5.03) L 10/04/16 04:06 Hgb 7.4 gm/dl (10.1-14.3) L 10/04/16 04:06 Hct 23.5 % (30.3-42.9) L 10/04/16 04:06 MCV 85 fl (79-97) 10/04/16 04:06 MCH 27 pg (28-32) L 10/04/16 04:06 MCHC 32 % (30-34) 10/04/16 04:06 RDW 17.1 % (13.2-15.2) H 10/04/16 04:06 Plt Count 144 K/mm3 (140-440) 10/04/16 04:06 Lymph % (Auto) 17.6 % (13.4-35.0) 10/04/16 04:06 [place] % (Auto) 8.1 % (0.0-7.3) H 10/04/16 04:06 Eos % (Auto) 0.6 % (0.0-4.3) 10/04/16 04:06 Baso % (Auto) 0.5 % (0.0-1.8) 10/04/16 04:06 Lymph # 1.2 K/mm3 (1.2-5.4) 10/04/16 04:06 [place] # 0.5 K/mm3 (0.0-0.8) 10/04/16 04:06 Eos # 0.0 K/mm3 (0.0-0.4) 10/04/16 04:06 Baso # 0.0 K/mm3 (0.0-0.1) 10/04/16 04:06 Seg Neutrophils % 73.2 % (40.0-70.0) H 10/04/16 04:06 Seg Neutrophils # 5.0 K/mm3 (1.8-7.7) 10/04/16 04:06 PT 16.7 Sec. (12.2-14.9) H 09/30/16 19:35 INR 1.36 (0.87-1.13) H 09/30/16 19:35 APTT 39.8 Sec. (24.2-36.6) H 09/30/16 19:35 Thrombin Time 17.9 Sec. (15.1-19.6) 09/30/16 19:35 Sodium 141 mmol/L (137-145) 10/04/16 04:06 Potassium 3.1 mmol/L (3.6-5.0) L 10/04/16 04:06 Chloride 97.1 mmol/L (98-107) L 10/04/16 04:06 Carbon Dioxide 17 mmol/L (22-30) L D 10/04/16 04:06 Anion Gap 30 mmol/L 10/04/16 04:06 BUN 69 mg/dL (7-17) H 10/04/16 04:06 Creatinine 3.8 mg/dL (0.7-1.2) H 10/04/16 04:06 Estimated GFR 15 ml/min 10/04/16 04:06 BUN/Creatinine Ratio 18.15 % 10/04/16 04:06 Glucose 140 mg/dL (65-100) H 10/04/16 04:06 POC Glucose 170 (70-105) H 10/04/16 11:45 Lactic Acid 1.30 mmol/L (0.7-2.0) 10/02/16 15:29 Calcium 8.6 mg/dL (8.4-10.2) 10/04/16 04:06 Total Bilirubin 1.00 mg/dL (0.1-1.2) 10/03/16 06:53 Direct Bilirubin 0.5 mg/dL (0-0.2) H 10/03/16 06:53 Indirect Bilirubin 0.5 mg/dL 10/03/16 06:53 AST 24 units/L (5-40) 10/03/16 06:53 ALT 7 units/L (7-56) 10/03/16 06:53 Alkaline Phosphatase 191 units/L (35-129) H 10/03/16 06:53 Ammonia 104.0 umol/L (25-60) H 10/02/16 08:44 Total Creatine Kinase 125 units/L (30-135) 10/01/16 06:59 CK-MB (CK-2) 3.0 ng/mL (0.0-4.0) 10/01/16 06:59 CK-MB (CK-2) Rel Index 2.4 (0-4) 10/01/16 06:59 Troponin T 0.143 ng/mL (0.00-0.029) H* 10/01/16 06:59 Serum Total Protein 7.7 g/dL (6.1-8.1) 10/01/16 09:54 Total Protein 7.2 g/dL (6.3-8.2) 10/03/16 06:53 Albumin 3.6 g/dL (3.9-5) L 10/03/16 06:53 Albumin/Globulin Ratio 1.0 % 10/03/16 06:53 Bvegz-6-Cwyaxzmpd 0.5 g/dL (0.2-0.3) H 10/01/16 09:54 Xekfz-5-Penzhmepd 0.8 g/dL (0.5-0.9) 10/01/16 09:54 Beta Globulins 0.4 g/dL (0.2-0.5) 10/01/16 09:54 Gamma Globulins 1.8 g/dL (0.8-1.7) H 10/01/16 09:54 Abnorm Protein Band 1 see below 10/01/16 09:54 PEP Interpretation see below H 10/01/16 09:54 Triglycerides 164 mg/dL (2-149) H 09/30/16 19:35 Cholesterol 159 mg/dL (50-199) 09/30/16 19:35 LDL Cholesterol Direct 89 mg/dL (50-130) 09/30/16 19:35 HDL Cholesterol 38 mg/dL (40-59) L 09/30/16 19:35 Cholesterol/HDL Ratio 4.18 % 09/30/16 19:35 TSH 2.160 mlU/mL (0.270-4.200) 09/30/16 20:15 Urine Color Yellow (Yellow) 09/30/16 22:44 Urine Turbidity Clear (Clear) 09/30/16 22:44 Urine pH 7.0 (5.0-7.0) 09/30/16 22:44 Ur Specific [place] 1.009 (1.003-1.030) 09/30/16 22:44 Urine Protein 100 mg/dl mg/dL (Negative) 09/30/16 22:44 Urine Glucose (UA) 50 mg/dL (Negative) 09/30/16 22:44 Urine Ketones Neg mg/dL (Negative) 09/30/16 22:44 Urine Blood Sm (Negative) 09/30/16 22:44 Urine Nitrite Neg (Negative) 09/30/16 22:44 Urine Bilirubin Neg (Negative) 09/30/16 22:44 Urine Urobilinogen < 2.0 mg/dL (<2.0) 09/30/16 22:44 Ur Leukocyte Esterase Neg (Negative) 09/30/16 22:44 Urine WBC (Auto) 1.0 /HPF (0.0-6.0) 09/30/16 22:44 Urine RBC (Auto) 4.0 /HPF (0.0-6.0) 09/30/16 22:44 U Epithel Cells (Auto) 3.0 /HPF (0-13.0) 09/30/16 22:44 Urine Bacteria (Auto) 1+ /HPF (Negative) 09/30/16 22:44 Urine Creatinine 47.0 mg/dL (0.1-20.0) H 10/01/16 08:38 Protein/Creatinin Ratio 4.06 10/01/16 08:38 Urine Sodium 93 mEq/L 10/01/16 08:38 Urine Total Protein 191 mg/dL (5-11.8) H 10/01/16 08:38 Salicylates < 0.3 mg/dL (2.8-20.0) L 09/30/16 20:15 Urine Opiates Screen Presumptive negative 09/30/16 22:44 Urine Methadone Screen Presumptive negative 09/30/16 22:44 Acetaminophen < 15.0 ug/mL (10.0-30.0) 09/30/16 20:15 Ur Barbiturates Screen Presumptive negative 09/30/16 22:44 Ur Phencyclidine Scrn Presumptive negative 09/30/16 22:44 Ur Amphetamines Screen Presumptive negative 09/30/16 22:44 U Benzodiazepines Scrn Presumptive negative 09/30/16 22:44 Urine Cocaine Screen Presumptive negative 09/30/16 22:44 U Marijuana (THC) Screen Presumptive negative 09/30/16 22:44 Drugs of Abuse Note Disclamer 09/30/16 22:44 Proteinase 3 (PR3) Ab <1.0 AI (<1.0) 10/01/16 09:54 Myeloperoxidase Ab <1.0 AI (<1.0) 10/01/16 09:54 Hepatitis A IgM Ab Non-reactive (NonReactive) 10/01/16 09:54 Hep Bs Antigen Non-reactive (Negative) 10/01/16 09:54 Hep B Core IgM Ab Non-reactive (NonReactive) 10/01/16 09:54 Hepatitis C Antibody Non-reactive (NonReactive) 10/01/16 09:54 Blood Type O POSITIVE 10/04/16 10:42 Antibody Screen Negative 10/04/16 10:42 Crossmatch See Detail 10/04/16 10:42
[2016-10-04 14:00] LABS: Hematocrit 23.4 % (30.3-42.9); Hemoglobin 7.6 gm/dl (10.1-14.3)
[2016-10-04] MEDS: HEPARIN IV PRN (18:25)
[2016-10-04] MEDS ORDERED: NACL 0.9 (PRIMING MACHINE ONLY DIALYSIS) MC ONE (18:28)
[2016-10-05 00:47] LABS: Hematocrit 28.4 % (30.3-42.9); Hemoglobin 9.1 gm/dl (10.1-14.3)
[2016-10-05] MEDS: PROTONIX 80 MG in NACL 0.9% 100 ML IV SCH ×2 (05:20→15:32)
[2016-10-05] MEDS: CEPHULAC PO SCH ×5 (07:21→23:45)
[2016-10-05] MEDS: NOVOLOG SUB-Q SCH ×5 (07:21→23:45)
[2016-10-05 07:44] LABS: Basophils % (Auto) 0.5 % (0.0-1.8); Hematocrit 26.3 % (30.3-42.9); Hemoglobin 8.7 gm/dl (10.1-14.3); Mean Corpuscular HGB Conc 33 % (30-34); Mean Corpuscular Hemoglobin 27 pg (28-32); Mean Corpuscular Volume 83 fl (79-97); Platelet Count 127 K/mm3 (140-440); Red Blood Count 3.19 M/mm3 (3.65-5.03); Red Cell Distribution Width 16.7 % (13.2-15.2)
[2016-10-05 07:47] LABS: Calcium 8.6 mg/dL (8.4-10.2); Chloride 98.4 mmol/L (98-107); Potassium 3.2 mmol/L (3.6-5.0)
[2016-10-05] MEDS: NORVASC PO SCH (10:15)
[2016-10-05] MEDS: COREG PO SCH ×2 (10:16→22:00)
--- NOTE | 2016-10-05 11:02 | Progress Note ---
Subjective Principal diagnosis: GI bleed Interval history: Patient was evaluated today for follow-up on multiple renal related issues she was transferred out of ICU Tolerated dialysis treatment fairly well Appears to be more alert awake less encephalopathic Vital labs intake and output medications were reviewed Current medications: Reviewed Social history:Reviewed Family history: Reviewed General: Disoriented confused HEENT: No uremic order oral mucosa moist Neck: Supple without any thyromegaly mass or JVD Chest: Clear to auscultation occasional basilar crackles posteriorly Heart: Regular rate and rhythm S1 and S2 heard no S3-S4 Abdomen: Soft nontender no voluntary guarding rigidity or rebound Extremity: Dry skin minimal edema Psychiatry: No agitation and aggression noted Assessment and plan Advanced renal failure in a patient who has been initiated on renal replacement therapy,She will need to continue with renal replacement therapy Patient likely may have end-stage renal disease to monitor and follow Currently will be dialyzed on Thursday schedule Anemia in renal failure with GI bleed to monitor and follow currently being followed by gastroenterology as well Erythropoietin with hemodialysis Used to follow up with [facility] Encephalopathy appears to be improving mixed variety Likely will need long-term dialysis Monitor renal-related parameters Likely hemodialysis tomorrow morning We'll continue to follow and make recommendations from renal standpoint Objective - Vital Signs Vital signs: Vital Signs - 12hr 10/05/16 10/05/16 10/05/16 00:00 05:00 06:51 Temperature 97.7 F 98.2 F Pulse Rate 64 65 65 Respiratory 18 20 Rate Blood Pressure 114/65 103/64 O2 Sat by Pulse 100 99 Oximetry 10/05/16 10/05/16 10/05/16 08:55 10:15 10:16 Temperature 98.3 F Pulse Rate 65 65 65 Respiratory 20 Rate Blood Pressure 123/65 123/65 123/65 O2 Sat by Pulse 99 Oximetry - Lab 10/05/16 07:07 10/05/16 07:07 Most recent lab results Calcium 8.6 mg/dL (8.4-10.2) 10/05/16 07:07 Urine Creatinine 47.0 mg/dL (0.1-20.0) H 10/01/16 08:38 Urine Sodium 93 mEq/L 10/01/16 08:38 Urine Total Protein 191 mg/dL (5-11.8) H 10/01/16 08:38
[2016-10-05] MEDS ORDERED: POTASSIUM CHLORIDE FEEDTUBE ONE (11:03)
--- NOTE | 2016-10-05 11:16 | Progress Note ---
Assessment and Plan No significant cardiac symptoms today. Overall cardiac rhythm and status appears to be stable. AMS / encephalopathy - head CT with NAF. GI bleed / anemia Lactic acidosis Elevated troponin - minimally elevated and flat with CK-MB WNL. ARF on CKD - s/p temporary RIJ dialysis catheter placement. HTN DM Cardiomyopathy with pulmonary hypertension. Ejection fraction 20-25%. Patient is not on ZEFERINO inhibitor due to his renal function abnormalities. Patient is also noted to be anemic. On carvedilol. Continue current management Patient is gradually improving. - Patient Problems (1) Hypertension Current Visit: Yes Status: Acute Qualifiers: Hypertension type: H (2) Cardiomyopathy Current Visit: Yes Status: Acute Qualifiers: Cardiomyopathy type: C (3) Pulmonary hypertension Current Visit: Yes Status: Acute Subjective Date of service: 10/05/16 Principal diagnosis: GI bleed Interval history: Patient is feeling better today. No chest pain or difficulty in breathing. Patient is in telemetry. Rhythm is stable. No new cardiac symptoms. Bleeding appears to be stable. Objective Vital Signs Temp Pulse Resp BP Pulse Ox 10/05/16 10:16 65 123/65 10/05/16 10:15 65 123/65 10/05/16 08:55 98.3 F 65 20 123/65 99 10/05/16 06:51 65 10/05/16 05:00 98.2 F 65 20 103/64 99 10/05/16 00:00 97.7 F 64 18 114/65 100 10/04/16 22:27 93 H 137/64 10/04/16 21:07 97.5 F L 93 H 20 137/64 100 10/04/16 19:38 98.0 F 69 18 134/64 10/04/16 19:30 78 113/55 10/04/16 19:15 73 138/54 10/04/16 19:00 71 123/64 10/04/16 18:45 70 116/66 10/04/16 18:30 70 127/65 10/04/16 18:15 73 116/63 10/04/16 18:00 69 117/57 10/04/16 17:45 69 122/56 10/04/16 17:30 72 107/56 10/04/16 17:15 68 116/57 10/04/16 17:00 68 114/60 10/04/16 16:45 71 122/57 10/04/16 16:30 70 126/60 10/04/16 16:27 97.8 F 70 18 126/60 10/04/16 15:50 67 13 103/46 10/04/16 15:40 67 12 103/46 10/04/16 15:30 65 12 103/46 10/04/16 15:20 65 12 103/46 10/04/16 15:10 64 8 L 103/46 10/04/16 15:00 66 12 103/46 100 10/04/16 14:50 66 13 103/46 100 10/04/16 14:40 66 12 89/41 100 10/04/16 14:30 64 10 L 89/41 100 10/04/16 14:20 66 13 89/41 100 10/04/16 14:10 66 14 103/46 100 10/04/16 14:00 65 9 L 89/41 100 10/04/16 13:50 68 13 100/46 100 10/04/16 13:40 65 11 L 114/51 100 10/04/16 13:30 68 14 114/51 100 10/04/16 13:20 67 12 112/49 100 10/04/16 13:10 68 9 L 112/54 100 10/04/16 13:00 68 13 112/54 100 10/04/16 12:50 66 11 L 126/57 100 10/04/16 12:40 66 11 L 116/51 100 10/04/16 12:30 68 11 L 116/51 100 10/04/16 12:20 68 18 113/46 100 10/04/16 12:10 69 12 119/54 100 10/04/16 12:00 97.9 F 69 14 119/54 100 10/04/16 11:50 69 12 117/51 100 10/04/16 11:40 70 11 L 116/48 100 10/04/16 11:30 67 13 95/48 100 10/04/16 11:20 67 13 116/48 100 - Physical Examination General: No Apparent Distress, Other (agitated) HEENT: Positive: PERRL, Normocephaly, Mucus Membranes Moist Neck: Positive: neck supple, trachea midline Cardiac: Positive: Reg Rate and Rhythm Lungs: Positive: clear to auscultation Neuro: Positive: Grossly Intact, Other (agitated) Abdomen: Positive: Unremarkable, Soft, Active Bowel Sounds. Negative: Tender Skin: Positive: Clear. Negative: Rash, Wound Musculoskeletal: No Fluid Collection, No Pain, Normal Range of Motion Extremities: Absent: edema - Labs and Meds CBC 10/04/16 10/05/16 10/05/16 Range/Units 13:29 00:21 07:07 WBC 6.0 (4.5-11.0) K/mm3 RBC 3.19 L (3.65-5.03) M/mm3 Hgb 7.6 L 9.1 L 8.7 L (10.1-14.3) gm/dl Hct 23.4 L 28.4 L 26.3 L (30.3-42.9) % Plt Count 127 L (140-440) K/mm3 Lymph # 1.1 L (1.2-5.4) K/mm3 [place] # 0.7 (0.0-0.8) K/mm3 Eos # 0.1 (0.0-0.4) K/mm3 Baso # 0.0 (0.0-0.1) K/mm3 Comprehensive Metabolic Panel 10/05/16 Range/Units 07:07 Sodium 141 (137-145) mmol/L Potassium 3.2 L (3.6-5.0) mmol/L Chloride 98.4 (98-107) mmol/L Carbon Dioxide 26 D (22-30) mmol/L BUN 29 H (7-17) mg/dL Creatinine 2.9 H (0.7-1.2) mg/dL Glucose 134 H (65-100) mg/dL Calcium 8.6 (8.4-10.2) mg/dL - Imaging and Cardiology EKG: image reviewed Echo: pending - EKG Sinus rhythms and dysrhythmias: sinus rhythm Repolarization changes or abnormalities: nonspecific abnormality, ST segment, and/or T wave
--- NOTE | 2016-10-05 11:36 | Progress Note ---
Assessment and Plan 61 y/o female with acute on chronic renal failure, now in need of HD and possible GI bleed, suspect lower given BRBPR 1. Will sign off from a critical care standpoint. Call if questions or needed Subjective Date of service: 10/05/16 Principal diagnosis: GI bleed Interval history: Successful transition out of ICU. No acute bleeding events last night. Objective - Constitutional Vitals: Vital Signs - 12hr 10/05/16 10/05/16 10/05/16 00:00 05:00 06:51 Temperature 97.7 F 98.2 F Pulse Rate 64 65 65 Respiratory 18 20 Rate Blood Pressure 114/65 103/64 O2 Sat by Pulse 100 99 Oximetry 10/05/16 10/05/16 10/05/16 08:55 10:15 10:16 Temperature 98.3 F Pulse Rate 65 65 65 Respiratory 20 Rate Blood Pressure 123/65 123/65 123/65 O2 Sat by Pulse 99 Oximetry 10/05/16 11:16 Temperature 98.4 F Pulse Rate 64 Respiratory 20 Rate Blood Pressure 123/58 O2 Sat by Pulse 100 Oximetry - Labs CBC & Chem 7: 10/05/16 07:07 10/05/16 07:07 Labs: Abnormal lab results 10/01/16 10/04/16 10/04/16 Range/Units 00:40 10:42 11:45 RBC (3.65-5.03) M/mm3 Hgb (10.1-14.3) gm/dl Hct (30.3-42.9) % MCH (28-32) pg RDW (13.2-15.2) % Plt Count (140-440) K/mm3 [place] % (Auto) (0.0-7.3) % Lymph # (1.2-5.4) K/mm3 Potassium (3.6-5.0) mmol/L BUN (7-17) mg/dL Creatinine (0.7-1.2) mg/dL Glucose (65-100) mg/dL POC Glucose 170 H (70-105) Crossmatch See Detail See Detail 10/04/16 10/04/16 10/05/16 Range/Units 13:29 21:08 00:21 RBC (3.65-5.03) M/mm3 Hgb 7.6 L 9.1 L (10.1-14.3) gm/dl Hct 23.4 L 28.4 L (30.3-42.9) % MCH (28-32) pg RDW (13.2-15.2) % Plt Count (140-440) K/mm3 [place] % (Auto) (0.0-7.3) % Lymph # (1.2-5.4) K/mm3 Potassium (3.6-5.0) mmol/L BUN (7-17) mg/dL Creatinine (0.7-1.2) mg/dL Glucose (65-100) mg/dL POC Glucose 161 H (70-105) Crossmatch 10/05/16 10/05/16 Range/Units 07:07 07:07 RBC 3.19 L (3.65-5.03) M/mm3 Hgb 8.7 L (10.1-14.3) gm/dl Hct 26.3 L (30.3-42.9) % MCH 27 L (28-32) pg RDW 16.7 H (13.2-15.2) % Plt Count 127 L (140-440) K/mm3 [place] % (Auto) 10.9 H (0.0-7.3) % Lymph # 1.1 L (1.2-5.4) K/mm3 Potassium 3.2 L (3.6-5.0) mmol/L BUN 29 H (7-17) mg/dL Creatinine 2.9 H (0.7-1.2) mg/dL Glucose 134 H (65-100) mg/dL POC Glucose (70-105) Crossmatch
[2016-10-05] MEDS ORDERED: K-DUR PO ONE (12:08)
--- NOTE | 2016-10-05 12:11 | Progress Note ---
Assessment and Plan Assessment and plan: Acute toxic metabolic encephalopathy - Likely from uremia - Resolved Anemia secondary to GI bleed versus CKD - Patient hemoglobin this morning is 8.7, no gonzalez bleeding overnight - Continue Protonix Chronic kidney disease with uremic encephalopathy - Continue hemodialysis per nephrology Hypertension - Currently controlled without any blood pressure medication History of CHF - Cardiology consult appreciated DVT prophylaxis - SCD because of GI bleed Disposition - Patient need O/P dialysis set up History Interval history: Patient was seen and evaluated this morning, patient was alert and oriented. Hospitalist Physical - Physical exam Narrative exam: Patient is not in cardiopulmonary distress. The patient appeared well nourished and normally developed. Vital signs as documented. Head exam is unremarkable. No scleral icterus . Neck is without jugular venous distension, thyromegaly, or carotid bruits. Lungs are clear to auscultation. Cardiac exam reveals regular rate and Rhythm. First and second heart sounds normal. No murmurs, rubs or gallops. Abdominal exam reveals obese abdomen. Extremities are nonedematous and both femoral and pedal pulses are normal. 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 - Constitutional Vitals: Temp Pulse Resp BP Pulse Ox 98.4 F 64 20 123/58 100 10/05/16 11:16 10/05/16 11:16 10/05/16 11:16 10/05/16 11:16 10/05/16 11:16 General appearance: Present: no acute distress (remains confused) Results - Labs CBC & Chem 7: 10/05/16 07:07 10/05/16 07:07 Labs: Laboratory Last Values WBC 6.0 K/mm3 (4.5-11.0) 10/05/16 07:07 RBC 3.19 M/mm3 (3.65-5.03) L 10/05/16 07:07 Hgb 8.7 gm/dl (10.1-14.3) L 10/05/16 07:07 Hct 26.3 % (30.3-42.9) L 10/05/16 07:07 MCV 83 fl (79-97) 10/05/16 07:07 MCH 27 pg (28-32) L 10/05/16 07:07 MCHC 33 % (30-34) 10/05/16 07:07 RDW 16.7 % (13.2-15.2) H 10/05/16 07:07 Plt Count 127 K/mm3 (140-440) L 10/05/16 07:07 Lymph % (Auto) 18.2 % (13.4-35.0) 10/05/16 07:07 [place] % (Auto) 10.9 % (0.0-7.3) H 10/05/16 07:07 Eos % (Auto) 1.0 % (0.0-4.3) 10/05/16 07:07 Baso % (Auto) 0.5 % (0.0-1.8) 10/05/16 07:07 Lymph # 1.1 K/mm3 (1.2-5.4) L 10/05/16 07:07 [place] # 0.7 K/mm3 (0.0-0.8) 10/05/16 07:07 Eos # 0.1 K/mm3 (0.0-0.4) 10/05/16 07:07 Baso # 0.0 K/mm3 (0.0-0.1) 10/05/16 07:07 Seg Neutrophils % 69.4 % (40.0-70.0) 10/05/16 07:07 Seg Neutrophils # 4.2 K/mm3 (1.8-7.7) 10/05/16 07:07 PT 16.7 Sec. (12.2-14.9) H 09/30/16 19:35 INR 1.36 (0.87-1.13) H 09/30/16 19:35 APTT 39.8 Sec. (24.2-36.6) H 09/30/16 19:35 Thrombin Time 17.9 Sec. (15.1-19.6) 09/30/16 19:35 Sodium 141 mmol/L (137-145) 10/05/16 07:07 Potassium 3.2 mmol/L (3.6-5.0) L 10/05/16 07:07 Chloride 98.4 mmol/L (98-107) 10/05/16 07:07 Carbon Dioxide 26 mmol/L (22-30) D 10/05/16 07:07 Anion Gap 20 mmol/L 10/05/16 07:07 BUN 29 mg/dL (7-17) H 10/05/16 07:07 Creatinine 2.9 mg/dL (0.7-1.2) H 10/05/16 07:07 Estimated GFR 20 ml/min 10/05/16 07:07 BUN/Creatinine Ratio 10.00 % 10/05/16 07:07 Glucose 134 mg/dL (65-100) H 10/05/16 07:07 POC Glucose 161 (70-105) H 10/04/16 21:08 Lactic Acid 1.30 mmol/L (0.7-2.0) 10/02/16 15:29 Calcium 8.6 mg/dL (8.4-10.2) 10/05/16 07:07 Total Bilirubin 1.00 mg/dL (0.1-1.2) 10/03/16 06:53 Direct Bilirubin 0.5 mg/dL (0-0.2) H 10/03/16 06:53 Indirect Bilirubin 0.5 mg/dL 10/03/16 06:53 AST 24 units/L (5-40) 10/03/16 06:53 ALT 7 units/L (7-56) 10/03/16 06:53 Alkaline Phosphatase 191 units/L (35-129) H 10/03/16 06:53 Ammonia 104.0 umol/L (25-60) H 10/02/16 08:44 Total Creatine Kinase 125 units/L (30-135) 10/01/16 06:59 CK-MB (CK-2) 3.0 ng/mL (0.0-4.0) 10/01/16 06:59 CK-MB (CK-2) Rel Index 2.4 (0-4) 10/01/16 06:59 Troponin T 0.143 ng/mL (0.00-0.029) H* 10/01/16 06:59 Serum Total Protein 7.7 g/dL (6.1-8.1) 10/01/16 09:54 Total Protein 7.2 g/dL (6.3-8.2) 10/03/16 06:53 Albumin 3.6 g/dL (3.9-5) L 10/03/16 06:53 Albumin/Globulin Ratio 1.0 % 10/03/16 06:53 Lwffc-4-Auvexzjkk 0.5 g/dL (0.2-0.3) H 10/01/16 09:54 Alvxp-8-Tfniwjdvx 0.8 g/dL (0.5-0.9) 10/01/16 09:54 Beta Globulins 0.4 g/dL (0.2-0.5) 10/01/16 09:54 Gamma Globulins 1.8 g/dL (0.8-1.7) H 10/01/16 09:54 Abnorm Protein Band 1 see below 10/01/16 09:54 PEP Interpretation see below H 10/01/16 09:54 Triglycerides 164 mg/dL (2-149) H 09/30/16 19:35 Cholesterol 159 mg/dL (50-199) 09/30/16 19:35 LDL Cholesterol Direct 89 mg/dL (50-130) 09/30/16 19:35 HDL Cholesterol 38 mg/dL (40-59) L 09/30/16 19:35 Cholesterol/HDL Ratio 4.18 % 09/30/16 19:35 TSH 2.160 mlU/mL (0.270-4.200) 09/30/16 20:15 Urine Color Yellow (Yellow) 09/30/16 22:44 Urine Turbidity Clear (Clear) 09/30/16 22:44 Urine pH 7.0 (5.0-7.0) 09/30/16 22:44 Ur Specific [place] 1.009 (1.003-1.030) 09/30/16 22:44 Urine Protein 100 mg/dl mg/dL (Negative) 09/30/16 22:44 Urine Glucose (UA) 50 mg/dL (Negative) 09/30/16 22:44 Urine Ketones Neg mg/dL (Negative) 09/30/16 22:44 Urine Blood Sm (Negative) 09/30/16 22:44 Urine Nitrite Neg (Negative) 09/30/16 22:44 Urine Bilirubin Neg (Negative) 09/30/16 22:44 Urine Urobilinogen < 2.0 mg/dL (<2.0) 09/30/16 22:44 Ur Leukocyte Esterase Neg (Negative) 09/30/16 22:44 Urine WBC (Auto) 1.0 /HPF (0.0-6.0) 09/30/16 22:44 Urine RBC (Auto) 4.0 /HPF (0.0-6.0) 09/30/16 22:44 U Epithel Cells (Auto) 3.0 /HPF (0-13.0) 09/30/16 22:44 Urine Bacteria (Auto) 1+ /HPF (Negative) 09/30/16 22:44 Urine Creatinine 47.0 mg/dL (0.1-20.0) H 10/01/16 08:38 Protein/Creatinin Ratio 4.06 10/01/16 08:38 Urine Sodium 93 mEq/L 10/01/16 08:38 Urine Total Protein 191 mg/dL (5-11.8) H 10/01/16 08:38 Salicylates < 0.3 mg/dL (2.8-20.0) L 09/30/16 20:15 Urine Opiates Screen Presumptive negative 09/30/16 22:44 Urine Methadone Screen Presumptive negative 09/30/16 22:44 Acetaminophen < 15.0 ug/mL (10.0-30.0) 09/30/16 20:15 Ur Barbiturates Screen Presumptive negative 09/30/16 22:44 Ur Phencyclidine Scrn Presumptive negative 09/30/16 22:44 Ur Amphetamines Screen Presumptive negative 09/30/16 22:44 U Benzodiazepines Scrn Presumptive negative 09/30/16 22:44 Urine Cocaine Screen Presumptive negative 09/30/16 22:44 U Marijuana (THC) Screen Presumptive negative 09/30/16 22:44 Drugs of Abuse Note Disclamer 09/30/16 22:44 Proteinase 3 (PR3) Ab <1.0 AI (<1.0) 10/01/16 09:54 Myeloperoxidase Ab <1.0 AI (<1.0) 10/01/16 09:54 Hepatitis A IgM Ab Non-reactive (NonReactive) 10/01/16 09:54 Hep Bs Antigen Non-reactive (Negative) 10/01/16 09:54 Hep B Core IgM Ab Non-reactive (NonReactive) 10/01/16 09:54 Hepatitis C Antibody Non-reactive (NonReactive) 10/01/16 09:54 Blood Type O POSITIVE 10/04/16 10:42 Antibody Screen Negative 10/04/16 10:42 Crossmatch See Detail 10/04/16 10:42
[2016-10-05] MEDS: NACL 0.9% 1000 ML 1,000 ML IV SCH (18:39)
[2016-10-06] MEDS: PROTONIX 80 MG in NACL 0.9% 100 ML IV SCH (02:00)
[2016-10-06] MEDS: CEPHULAC PO SCH ×3 (06:06→19:28)
[2016-10-06] MEDS: NOVOLOG SUB-Q SCH ×3 (06:14→19:29)
[2016-10-06 07:43] LABS: Basophils % (Auto) 0.7 % (0.0-1.8); Eosinophils % (Auto) 1.7 % (0.0-4.3); Hematocrit 27.5 % (30.3-42.9); Hemoglobin 8.9 gm/dl (10.1-14.3); Mean Corpuscular HGB Conc 33 % (30-34); Mean Corpuscular Hemoglobin 27 pg (28-32); Mean Corpuscular Volume 85 fl (79-97); Platelet Count 148 K/mm3 (140-440); Red Blood Count 3.25 M/mm3 (3.65-5.03); Red Cell Distribution Width 17.3 % (13.2-15.2); White Blood Count 6.5 K/mm3 (4.5-11.0)
[2016-10-06 08:41] LABS: BUN/Creatinine Ratio 6.73; Calcium 8.5 mg/dL (8.4-10.2); Chloride 98.4 mmol/L (98-107); Potassium 3.4 mmol/L (3.6-5.0)
[2016-10-06] MEDS: NORVASC PO SCH (09:09)
[2016-10-06] MEDS: COREG PO SCH ×2 (09:10→22:38)
--- NOTE | 2016-10-06 10:39 | Progress Note ---
Subjective Principal diagnosis: GI bleed Interval history: Patient was evaluated today for follow-up on multiple renal related issues Patient denies any shortness of breath She is more oriented today Vital labs intake and output medications were reviewed Current medications: Reviewed Social history:Reviewed Family history: Reviewed General: No acute distress HEENT: No uremic order oral mucosa moist Neck: Supple without any thyromegaly mass or JVD Chest: Clear to auscultation occasional basilar crackles posteriorly Heart: Regular rate and rhythm S1 and S2 heard no S3-S4 Abdomen: Soft nontender no voluntary guarding rigidity or rebound Extremity: Dry skin minimal edema Psychiatry: No agitation and aggression noted Assessment and plan Advanced renal failure in a patient who has been initiated on renal replacement therapy, She will be kept on dialysis 3 times a week Thursday for now Severe anemia GI bleed to monitor and follow erythropoietin with hemodialysis History of advanced renal failure stage IV was seeing Leif Encephalopathy appears to be improving Blood pressure has been borderline low would like to reduce the beta yasmany Monitor renal related labs Patient has nearly 2 g of proteinuria by protein creatinine ratio Patient likely will require an outpatient dialysis spot needs to be arranged Continue with supportive care physical therapy rehabilitation We'll continue to follow and make recommendations from renal standpoint Objective - Vital Signs Vital signs: Vital Signs - 12hr 10/06/16 10/06/16 10/06/16 00:00 04:00 07:50 Temperature 98.0 F 98.2 F 98.0 F Pulse Rate 66 68 66 Respiratory 18 18 20 Rate Blood Pressure 102/55 108/58 112/55 O2 Sat by Pulse 100 100 100 Oximetry 10/06/16 09:25 Temperature Pulse Rate Respiratory Rate Blood Pressure O2 Sat by Pulse 100 Oximetry - Lab 10/06/16 07:08 10/06/16 07:08 Most recent lab results Calcium 8.5 mg/dL (8.4-10.2) 10/06/16 07:08 Urine Creatinine 47.0 mg/dL (0.1-20.0) H 10/01/16 08:38 Urine Sodium 93 mEq/L 10/01/16 08:38 Urine Total Protein 191 mg/dL (5-11.8) H 10/01/16 08:38
[2016-10-06] MEDS ORDERED: COREG PO SCH (10:40)
--- NOTE | 2016-10-06 10:49 | Progress Note ---
Assessment and Plan Assessment: GI bleed / anemia AMS / encephalopathy - head CT with NAF; improved. 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 Moderate pulmonary HTN - RVSP 52mmHg. Lactic acidosis Elevated troponin - minimally elevated and flat with CK-MB WNL. ARF on CKD - s/p temporary RIJ dialysis catheter placement. HTN DM Hypokalemia Plan: Patient is not on ZEFERINO inhibitor/ARB due to ARF on CKD. Consider ACEI/ARB if/ when okay per nephrology. Currently stable cardiac status. Cont Coreg. Replete lytes PRN per nephrology to maintain serum K+ ~4 and serum Mg ~2. Consider ischemic evaluation for further evaluation of CMP etiology once medically stabilized - can be done as OP. The patient has been seen in conjunction with Dr. Groves who agrees with the assessment and plan of care. Subjective Date of service: 10/06/16 Principal diagnosis: GI bleed Interval history: Pt resting in bed, A&O, no complaints. VSS. Objective Last Vital Signs Temp 98.0 F 10/06/16 07:50 Pulse 66 10/06/16 07:50 Resp 20 10/06/16 07:50 BP 112/55 10/06/16 07:50 Pulse Ox 100 10/06/16 09:25 - Physical Examination General: Appears Well, No Apparent Distress HEENT: Positive: PERRL, Normocephaly, Mucus Membranes Moist Neck: Positive: neck supple, trachea midline Cardiac: Positive: Reg Rate and Rhythm, S1/S2 Lungs: Positive: clear to auscultation Neuro: Positive: Grossly Intact, Cranial Nerve 2-12 Intact Abdomen: Positive: Unremarkable, Soft, Active Bowel Sounds. Negative: Tender Skin: Positive: Clear. Negative: Rash, Wound Musculoskeletal: No Fluid Collection, No Pain, Normal Range of Motion Extremities: Absent: edema - Labs and Meds CBC 10/06/16 Range/Units 07:08 WBC 6.5 (4.5-11.0) K/mm3 RBC 3.25 L (3.65-5.03) M/mm3 Hgb 8.9 L (10.1-14.3) gm/dl Hct 27.5 L (30.3-42.9) % Plt Count 148 (140-440) K/mm3 Lymph # 1.6 (1.2-5.4) K/mm3 [place] # 0.7 (0.0-0.8) K/mm3 Eos # 0.1 (0.0-0.4) K/mm3 Baso # 0.0 (0.0-0.1) K/mm3 Comprehensive Metabolic Panel 10/06/16 Range/Units 07:08 Sodium 139 (137-145) mmol/L Potassium 3.4 L (3.6-5.0) mmol/L Chloride 98.4 (98-107) mmol/L Carbon Dioxide 24 (22-30) mmol/L BUN 31 H (7-17) mg/dL Creatinine 4.6 H D (0.7-1.2) mg/dL Glucose 97 (65-100) mg/dL Calcium 8.5 (8.4-10.2) mg/dL - Imaging and Cardiology EKG: image reviewed Echo: report reviewed (10/01/2016: EF 20 - 25%, mild LVH, mild MR, pseudonormalization) - Telemetry EKG Rhythm: Sinus Rhythm - EKG Sinus rhythms and dysrhythmias: sinus rhythm Repolarization changes or abnormalities: nonspecific abnormality, ST segment, and/or T wave
--- NOTE | 2016-10-06 11:48 | Progress Note ---
Assessment and Plan Pt with Renal failure. Continues to require HD. Pt s/p RIJ VC. Will schedule PC insertion for am. RBA explained and pt agreed to proceed. - Patient Problems (1) Renal failure Current Visit: Yes Status: Acute Qualifiers: Renal failure chronicity: acute on chronic Acute renal failure type: unspecified Chronic kidney disease stage: unspecified stage Qualified Code(s ): N17.9 - Acute kidney failure, unspecified; N18.9 - Chronic kidney disease, unspecified Subjective Date of service: 10/06/16 Principal diagnosis: GI bleed Interval history: Pt awake, without complaint at present. Objective - Constitutional Vitals: Vital Signs - 12hr 10/06/16 10/06/16 10/06/16 00:00 04:00 07:50 Temperature 98.0 F 98.2 F 98.0 F Pulse Rate 66 68 66 Respiratory 18 18 20 Rate Blood Pressure 102/55 108/58 112/55 O2 Sat by Pulse 100 100 100 Oximetry 10/06/16 09:25 Temperature Pulse Rate Respiratory Rate Blood Pressure O2 Sat by Pulse 100 Oximetry General appearance: Present: no acute distress - EENT Eyes: EOM intact ENT: hearing intact - Neck Neck: supple (RIJ VC in place without erythema or drainage.) - Respiratory Respiratory effort: normal - Neurologic Neurologic: no focal deficits - Psychiatric Psychiatric: appropriate mood/affect, intact judgment & insight, cooperative - Labs CBC & Chem 7: 10/06/16 07:08 10/06/16 07:08 Labs: Abnormal lab results 10/05/16 10/05/16 10/05/16 Range/Units 07:36 11:14 15:51 RBC (3.65-5.03) M/mm3 Hgb (10.1-14.3) gm/dl Hct (30.3-42.9) % MCH (28-32) pg RDW (13.2-15.2) % [place] % (Auto) (0.0-7.3) % Potassium (3.6-5.0) mmol/L BUN (7-17) mg/dL Creatinine (0.7-1.2) mg/dL POC Glucose 153 H 255 H 262 H (70-105) 10/05/16 10/06/16 10/06/16 Range/Units 21:57 07:08 07:08 RBC 3.25 L (3.65-5.03) M/mm3 Hgb 8.9 L (10.1-14.3) gm/dl Hct 27.5 L (30.3-42.9) % MCH 27 L (28-32) pg RDW 17.3 H (13.2-15.2) % [place] % (Auto) 11.2 H (0.0-7.3) % Potassium 3.4 L (3.6-5.0) mmol/L BUN 31 H (7-17) mg/dL Creatinine 4.6 H D (0.7-1.2) mg/dL POC Glucose 171 H (70-105)
--- NOTE | 2016-10-06 15:00 | Gastroenterology Progress Note ---
Assessment and Plan GI: stable w/o signs bleeding - continue to follow labs, consider bleeding scan if signs bleeding - will sign off, call if needed Subjective Date of service: 10/06/16 Principal diagnosis: GI bleed Interval history: - no signs bleeding overnight Objective - Constitutional Vitals: Temp Pulse Resp BP Pulse Ox 98.2 F 64 20 104/59 100 10/06/16 11:45 10/06/16 11:45 10/06/16 11:45 10/06/16 11:45 10/06/16 11:45 General appearance: no acute distress - Respiratory Respiratory: bilateral: CTA - Cardiovascular Rhythm: regular Heart Sounds: Present: S1 & S2 - Gastrointestinal General gastrointestinal: Present: soft, non-tender, non-distended - Labs CBC & Chem 7: 10/06/16 07:08 10/06/16 07:08 Labs: Laboratory Results - last 24 hr 10/01/16 10/05/16 10/05/16 09:54 15:51 21:57 WBC RBC Hgb Hct MCV MCH MCHC RDW Plt Count Lymph % (Auto) [place] % (Auto) Eos % (Auto) Baso % (Auto) Lymph # [place] # Eos # Baso # Seg Neutrophils % Seg Neutrophils # Sodium Potassium Chloride Carbon Dioxide Anion Gap BUN Creatinine Estimated GFR BUN/Creatinine Ratio Glucose POC Glucose 262 H 171 H Calcium SANGEETHA Screen Negative 10/06/16 10/06/16 10/06/16 07:08 07:08 07:59 WBC 6.5 RBC 3.25 L Hgb 8.9 L Hct 27.5 L MCV 85 MCH 27 L MCHC 33 RDW 17.3 H Plt Count 148 Lymph % (Auto) 24.7 [place] % (Auto) 11.2 H Eos % (Auto) 1.7 Baso % (Auto) 0.7 Lymph # 1.6 [place] # 0.7 Eos # 0.1 Baso # 0.0 Seg Neutrophils % 61.7 Seg Neutrophils # 4.0 Sodium 139 Potassium 3.4 L Chloride 98.4 Carbon Dioxide 24 Anion Gap 20 BUN 31 H Creatinine 4.6 H D Estimated GFR 12 BUN/Creatinine Ratio 6.73 Glucose 97 POC Glucose 105 Calcium 8.5 SANGE[place]HA Screen
--- NOTE | 2016-10-06 15:43 | Progress Note ---
Assessment and Plan Assessment and plan: Acute toxic metabolic encephalopathy - Likely from uremia - Resolved Anemia secondary to GI bleed versus CKD - Patient hemoglobin this morning is 8.7, no gonzalez bleeding overnight - Continue Protonix Chronic kidney disease with uremic encephalopathy - Continue hemodialysis per nephrology - patient will have port cath tomorrow Hypertension - Currently controlled without any blood pressure medication History of CHF - Cardiology consult appreciated DVT prophylaxis - SCD because of GI bleed Disposition - Patient need O/P dialysis set up History Interval history: Patient was seen and evaluated this morning, patient was alert and oriented, not in pain or distress. Hospitalist Physical - Physical exam Narrative exam: Patient is not in cardiopulmonary distress. The patient appeared well nourished and normally developed. Vital signs as documented. Head exam is unremarkable. No scleral icterus . Neck is without jugular venous distension, thyromegaly, or carotid bruits. Lungs are clear to auscultation. Cardiac exam reveals regular rate and Rhythm. First and second heart sounds normal. No murmurs, rubs or gallops. Abdominal exam reveals obese abdomen. Extremities are nonedematous and both femoral and pedal pulses are normal. GROUP LEADER: Alert and oriented 3. - Constitutional Vitals: Temp Pulse Resp BP Pulse Ox 98.2 F 64 20 104/59 100 10/06/16 11:45 10/06/16 11:45 10/06/16 11:45 10/06/16 11:45 10/06/16 11:45 General appearance: Present: no acute distress Results - Labs CBC & Chem 7: 10/06/16 07:08 10/06/16 07:08 Labs: Laboratory Last Values WBC 6.5 K/mm3 (4.5-11.0) 10/06/16 07:08 RBC 3.25 M/mm3 (3.65-5.03) L 10/06/16 07:08 Hgb 8.9 gm/dl (10.1-14.3) L 10/06/16 07:08 Hct 27.5 % (30.3-42.9) L 10/06/16 07:08 MCV 85 fl (79-97) 10/06/16 07:08 MCH 27 pg (28-32) L 10/06/16 07:08 MCHC 33 % (30-34) 10/06/16 07:08 RDW 17.3 % (13.2-15.2) H 10/06/16 07:08 Plt Count 148 K/mm3 (140-440) 10/06/16 07:08 Lymph % (Auto) 24.7 % (13.4-35.0) 10/06/16 07:08 [place] % (Auto) 11.2 % (0.0-7.3) H 10/06/16 07:08 Eos % (Auto) 1.7 % (0.0-4.3) 10/06/16 07:08 Baso % (Auto) 0.7 % (0.0-1.8) 10/06/16 07:08 Lymph # 1.6 K/mm3 (1.2-5.4) 10/06/16 07:08 [place] # 0.7 K/mm3 (0.0-0.8) 10/06/16 07:08 Eos # 0.1 K/mm3 (0.0-0.4) 10/06/16 07:08 Baso # 0.0 K/mm3 (0.0-0.1) 10/06/16 07:08 Seg Neutrophils % 61.7 % (40.0-70.0) 10/06/16 07:08 Seg Neutrophils # 4.0 K/mm3 (1.8-7.7) 10/06/16 07:08 PT 16.7 Sec. (12.2-14.9) H 09/30/16 19:35 INR 1.36 (0.87-1.13) H 09/30/16 19:35 APTT 39.8 Sec. (24.2-36.6) H 09/30/16 19:35 Thrombin Time 17.9 Sec. (15.1-19.6) 09/30/16 19:35 Sodium 139 mmol/L (137-145) 10/06/16 07:08 Potassium 3.4 mmol/L (3.6-5.0) L 10/06/16 07:08 Chloride 98.4 mmol/L (98-107) 10/06/16 07:08 Carbon Dioxide 24 mmol/L (22-30) 10/06/16 07:08 Anion Gap 20 mmol/L 10/06/16 07:08 BUN 31 mg/dL (7-17) H 10/06/16 07:08 Creatinine 4.6 mg/dL (0.7-1.2) H D 10/06/16 07:08 Estimated GFR 12 ml/min 10/06/16 07:08 BUN/Creatinine Ratio 6.73 % 10/06/16 07:08 Glucose 97 mg/dL (65-100) 10/06/16 07:08 POC Glucose 105 (70-105) 10/06/16 07:59 Lactic Acid 1.30 mmol/L (0.7-2.0) 10/02/16 15:29 Calcium 8.5 mg/dL (8.4-10.2) 10/06/16 07:08 Total Bilirubin 1.00 mg/dL (0.1-1.2) 10/03/16 06:53 Direct Bilirubin 0.5 mg/dL (0-0.2) H 10/03/16 06:53 Indirect Bilirubin 0.5 mg/dL 10/03/16 06:53 AST 24 units/L (5-40) 10/03/16 06:53 ALT 7 units/L (7-56) 10/03/16 06:53 Alkaline Phosphatase 191 units/L (35-129) H 10/03/16 06:53 Ammonia 104.0 umol/L (25-60) H 10/02/16 08:44 Total Creatine Kinase 125 units/L (30-135) 10/01/16 06:59 CK-MB (CK-2) 3.0 ng/mL (0.0-4.0) 10/01/16 06:59 CK-MB (CK-2) Rel Index 2.4 (0-4) 10/01/16 06:59 Troponin T 0.143 ng/mL (0.00-0.029) H* 10/01/16 06:59 Serum Total Protein 7.7 g/dL (6.1-8.1) 10/01/16 09:54 Total Protein 7.2 g/dL (6.3-8.2) 10/03/16 06:53 Albumin 3.6 g/dL (3.9-5) L 10/03/16 06:53 Albumin/Globulin Ratio 1.0 % 10/03/16 06:53 Vevvd-4-Dztlrfggp 0.5 g/dL (0.2-0.3) H 10/01/16 09:54 [place]-2-[place] 0.8 g/dL (0.5-0.9) 10/01/16 09:54 Beta Globulins 0.4 g/dL (0.2-0.5) 10/01/16 09:54 Gamma Globulins 1.8 g/dL (0.8-1.7) H 10/01/16 09:54 Abnorm Protein Band 1 see below 10/01/16 09:54 PEP Interpretation see below H 10/01/16 09:54 Triglycerides 164 mg/dL (2-149) H 09/30/16 19:35 Cholesterol 159 mg/dL (50-199) 09/30/16 19:35 LDL Cholesterol Direct 89 mg/dL (50-130) 09/30/16 19:35 HDL Cholesterol 38 mg/dL (40-59) L 09/30/16 19:35 Cholesterol/HDL Ratio 4.18 % 09/30/16 19:35 TSH 2.160 mlU/mL (0.270-4.200) 09/30/16 20:15 Urine Color Yellow (Yellow) 09/30/16 22:44 Urine Turbidity Clear (Clear) 09/30/16 22:44 Urine pH 7.0 (5.0-7.0) 09/30/16 22:44 Ur Specific [place] 1.009 (1.003-1.030) 09/30/16 22:44 Urine Protein 100 mg/dl mg/dL (Negative) 09/30/16 22:44 Urine Glucose (UA) 50 mg/dL (Negative) 09/30/16 22:44 Urine Ketones Neg mg/dL (Negative) 09/30/16 22:44 Urine Blood Sm (Negative) 09/30/16 22:44 Urine Nitrite Neg (Negative) 09/30/16 22:44 Urine Bilirubin Neg (Negative) 09/30/16 22:44 Urine Urobilinogen < 2.0 mg/dL (<2.0) 09/30/16 22:44 Ur Leukocyte Esterase Neg (Negative) 09/30/16 22:44 Urine WBC (Auto) 1.0 /HPF (0.0-6.0) 09/30/16 22:44 Urine RBC (Auto) 4.0 /HPF (0.0-6.0) 09/30/16 22:44 U Epithel Cells (Auto) 3.0 /HPF (0-13.0) 09/30/16 22:44 Urine Bacteria (Auto) 1+ /HPF (Negative) 09/30/16 22:44 Urine Creatinine 47.0 mg/dL (0.1-20.0) H 10/01/16 08:38 Protein/Creatinin Ratio 4.06 10/01/16 08:38 Urine Sodium 93 mEq/L 10/01/16 08:38 Urine Total Protein 191 mg/dL (5-11.8) H 10/01/16 08:38 Salicylates < 0.3 mg/dL (2.8-20.0) L 09/30/16 20:15 Urine Opiates Screen Presumptive negative 09/30/16 22:44 Urine Methadone Screen Presumptive negative 09/30/16 22:44 Acetaminophen < 15.0 ug/mL (10.0-30.0) 09/30/16 20:15 Ur Barbiturates Screen Presumptive negative 09/30/16 22:44 Ur Phencyclidine Scrn Presumptive negative 09/30/16 22:44 Ur Amphetamines Screen Presumptive negative 09/30/16 22:44 U Benzodiazepines Scrn Presumptive negative 09/30/16 22:44 Urine Cocaine Screen Presumptive negative 09/30/16 22:44 U Marijuana (THC) Screen Presumptive negative 09/30/16 22:44 Drugs of Abuse Note Disclamer 09/30/16 22:44 SANGEETHA Screen Negative (Negative) 10/01/16 09:54 Proteinase 3 (PR3) Ab <1.0 AI (<1.0) 10/01/16 09:54 Myeloperoxidase Ab <1.0 AI (<1.0) 10/01/16 09:54 Hepatitis A IgM Ab Non-reactive (NonReactive) 10/01/16 09:54 Hep Bs Antigen Non-reactive (Negative) 10/01/16 09:54 Hep B Core IgM Ab Non-reactive (NonReactive) 10/01/16 09:54 Hepatitis C Antibody Non-reactive (NonReactive) 10/01/16 09:54 Blood Type O POSITIVE 10/04/16 10:42 Antibody Screen Negative 10/04/16 10:42 Crossmatch See Detail 10/04/16 10:42
[2016-10-06] MEDS: NACL 0.9% 1000 ML 1,000 ML IV SCH (15:48)
[2016-10-07] MEDS: NOVOLOG SUB-Q SCH ×4 (00:12→18:31)
[2016-10-07] MEDS: CEPHULAC PO SCH ×4 (00:13→18:17)
[2016-10-07] MEDS ORDERED: ANCEF/STERILE WATER 2 GM/20 ML 2 GM/20 ML SYRINGE IV NR (08:00)
[2016-10-07 08:01] LABS: Basophils % (Auto) 0.6 % (0.0-1.8); Hematocrit 26.7 % (30.3-42.9); Hemoglobin 8.7 gm/dl (10.1-14.3); Mean Corpuscular HGB Conc 33 % (30-34); Mean Corpuscular Hemoglobin 27 pg (28-32); Mean Corpuscular Volume 85 fl (79-97); Platelet Count 141 K/mm3 (140-440); Red Blood Count 3.16 M/mm3 (3.65-5.03); White Blood Count 6.8 K/mm3 (4.5-11.0)
[2016-10-07 09:52] LABS: BUN/Creatinine Ratio 6.18; Calcium 8.2 mg/dL (8.4-10.2); Potassium 3.7 mmol/L (3.6-5.0)
--- NOTE | 2016-10-07 09:59 | Progress Note ---
Subjective Principal diagnosis: GI bleed Interval history: Patient was evaluated today for follow-up on multiple renal related issues she is much more alert Less encephalopathic Vital labs intake and output medications were reviewed Current medications: Reviewed Social history:Reviewed Family history: Reviewed General: No acute distress HEENT: No uremic order oral mucosa moist Neck: Supple without any thyromegaly mass or JVD Chest: Clear to auscultation occasional basilar crackles posteriorly Heart: Regular rate and rhythm S1 and S2 heard no S3-S4 Abdomen: Soft nontender no voluntary guarding rigidity or rebound Extremity: Dry skin minimal edema Psychiatry: No agitation and aggression noted Assessment and plan End-stage renal disease. Patient is currently on maintenance hemodialysis She will need to continue dialysis 3 times per week anemia and renal failure with GI bleed currently hemoglobin above 8 Outpatient dialysis clinic, needs to be arranged at [place] Blood pressure has been borderline low would like to reduce the beta yasmany Monitor renal related labs Patient has nearly 2 g of proteinuria by protein creatinine ratio/has some peripheral edema Continue with supportive care physical therapy rehabilitation/ We'll continue to follow and make recommendations from renal standpoint Objective - Vital Signs Vital signs: Vital Signs - 12hr 10/06/16 10/06/16 10/07/16 22:38 23:35 03:35 Temperature 98.2 F 98.8 F Pulse Rate 71 68 69 Respiratory 20 20 Rate Blood Pressure 112/65 122/72 103/62 O2 Sat by Pulse 100 98 Oximetry 10/07/16 08:15 Temperature 98.0 F Pulse Rate 68 Respiratory 20 Rate Blood Pressure 110/54 O2 Sat by Pulse 100 Oximetry - Lab 10/07/16 07:06 10/07/16 07:06 Most recent lab results Calcium 8.2 mg/dL (8.4-10.2) L 10/07/16 07:06 Urine Creatinine 47.0 mg/dL (0.1-20.0) H 10/01/16 08:38 Urine Sodium 93 mEq/L 10/01/16 08:38 Urine Total Protein 191 mg/dL (5-11.8) H 10/01/16 08:38
[2016-10-07] MEDS: NORVASC PO SCH (10:00)
[2016-10-07] MEDS: COREG PO SCH ×2 (10:00→21:18)
[2016-10-07] MEDS ORDERED: NACL 0.9 (PRIMING MACHINE ONLY DIALYSIS) MC ONE (10:47)
--- NOTE | 2016-10-07 10:49 | Progress Note ---
Assessment and Plan Assessment: GI bleed / anemia - stable AMS / encephalopathy - head CT with NAF; improved. 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 Moderate pulmonary HTN - RVSP 52mmHg. Lactic acidosis Elevated troponin - minimally elevated and flat with CK-MB WNL. ARF on CKD - s/p temporary RIJ dialysis catheter placement. HTN DM Hypokalemia Plan: Patient is not on ZEFERINO inhibitor/ARB due to ARF on CKD. Consider ACEI/ARB if/ when okay per nephrology. Currently stable cardiac status. Cont Coreg. Replete lytes PRN per nephrology to maintain serum K+ ~4 and serum Mg ~2. Consider ischemic evaluation (lexiscan MPI) for further evaluation of CMP etiology once medically stabilized - can be done as OP. The patient has been seen in conjunction with Dr. Joan Jefferson who agrees with the assessment and plan of care. Subjective Date of service: 10/07/16 Principal diagnosis: GI bleed Interval history: Pt resting in bed, A&O, no complaints. VSS. Has been NPO for pending vascular procedure today. Objective Last Vital Signs Temp 97.5 F L 10/07/16 09:45 Pulse 67 10/07/16 10:30 Resp 20 10/07/16 09:45 BP 121/63 10/07/16 10:30 Pulse Ox 100 10/07/16 08:15 - Physical Examination General: Appears Well, No Apparent Distress HEENT: Positive: PERRL, Normocephaly, Mucus Membranes Moist Neck: Positive: neck supple, trachea midline Cardiac: Positive: Reg Rate and Rhythm, S1/S2 Lungs: Positive: clear to auscultation Neuro: Positive: Grossly Intact, Cranial Nerve 2-12 Intact Abdomen: Positive: Unremarkable, Soft, Active Bowel Sounds. Negative: Tender Skin: Positive: Clear. Negative: Rash, Wound Musculoskeletal: No Fluid Collection, No Pain, Normal Range of Motion Extremities: Absent: edema - Labs and Meds CBC 10/07/16 Range/Units 07:06 WBC 6.8 (4.5-11.0) K/mm3 RBC 3.16 L (3.65-5.03) M/mm3 Hgb 8.7 L (10.1-14.3) gm/dl Hct 26.7 L (30.3-42.9) % Plt Count 141 (140-440) K/mm3 Lymph # 1.1 L (1.2-5.4) K/mm3 [place] # 1.0 H (0.0-0.8) K/mm3 Eos # 0.1 (0.0-0.4) K/mm3 Baso # 0.0 (0.0-0.1) K/mm3 Comprehensive Metabolic Panel 10/07/16 Range/Units 07:06 Sodium 136 L (137-145) mmol/L Potassium 3.7 (3.6-5.0) mmol/L Chloride 96.0 L (98-107) mmol/L Carbon Dioxide 23 (22-30) mmol/L BUN 34 H (7-17) mg/dL Creatinine 5.5 H (0.7-1.2) mg/dL Glucose 134 H (65-100) mg/dL Calcium 8.2 L (8.4-10.2) mg/dL - Imaging and Cardiology EKG: image reviewed Echo: report reviewed (10/01/2016: EF 20 - 25%, mild LVH, mild MR, pseudonormalization) - EKG Sinus rhythms and dysrhythmias: sinus rhythm Repolarization changes or abnormalities: nonspecific abnormality, ST segment, and/or T wave
[2016-10-07] MEDS: HEPARIN IV PRN (13:37)
[2016-10-07] MEDS ORDERED: HEPARIN/NS 5000 UNIT/500ML(CATH LAB) 500 ML IR ONE (14:11)
[2016-10-07] MEDS ORDERED: ANCEF/STERILE WATER 2 GM/20 ML 2 GM/20 ML SYRINGE IV ONE (14:12)
[2016-10-07] MEDS ORDERED: VERSED ONE (14:12)
[2016-10-07] MEDS ORDERED: SUBLIMAZE ONE (14:12)
[2016-10-07] MEDS ORDERED: XYLOCAINE 2% INFILTRATI ONE (14:12)
[2016-10-07] MEDS ORDERED: NACL 0.9% 500 ML 500 ML ONE (15:01)
[2016-10-07] MEDS: HEPARIN 10,000 UNITS/10 ML ONE ×2 (15:37→15:38)
--- NOTE | 2016-10-07 15:45 | Operative Report ---
Operative Report Operative Report: EXAM: EXCHANGE OF NON-TUNNELED HEMODIALYSIS CATHETER WITH PLACEMENT OF A TUNNELED HEMODIALYSIS CATHETER CLINICAL INDICATION: PATIENT WITH A HISTORY OF END-STAGE RENAL DISEASE REQUIRING LONGER-TERM DIALYSIS ACCESS DATE: 10/07/2016 PROCEDURE: Following an explanation of the risks, benefits and alternatives; written informed consent was obtained. The patient was brought to the angiographic suite and placed in supine position on the examination table. Initial evaluation of the patient's indwelling Vas-Cath demonstrated no exudates were significant erythema. The patient's indwelling Vas-Cath and chest wall were prepped and draped in the usual sterile fashion. 1% lidocaine was used for anesthesia. Under fluoroscopic guidance, a 0.035 guidewire was advanced to the patient's indwelling Vas-Cath. The guidewire was advanced into the IVC to document intravenous positioning. An appropriate catheter exit site was chosen along the anterior lateral right chest wall. 1% lidocaine was used for anesthesia at the catheter exit site and along the tunnel tract. A Bard 19 cm glidepath tunneled hemodialysis catheter was then tunneled antegrade from the catheter exit site to the venotomy site. The patient's indwelling Vas-Cath was removed over the guidewire and a 16 [place] peel-away sheath advanced over the guidewire under fluoroscopy. The guidewire and trocar were removed. The hemodialysis catheter was advanced through the peel-away sheath and the peel-away sheath removed. The catheter tip was positioned in the proximal right atrium. Both ports flushed and aspirated easily and were then locked with appropriate volumes of heparin. The venotomy site was closed using 3-0 Vicryl suture and Dermabond. Dermabond was also applied to the catheter exit site. Sterile dressings were then applied. The patient tolerated the procedure well. There were no immediate post procedure complications. Conscious sedation was performed under the guidance of radiologic nursing. Continuous cardiopulmonary monitoring was utilized. IMPRESSION: 1) Exchange of non-tunneled hemodialysis catheter with placement of a tunneled hemodialysis catheter under fluoroscopy.
--- NOTE | 2016-10-07 15:45 | Progress Note ---
Assessment and Plan Assessment and plan: 61 year old woman with a history of hypertension, diabetes, CHF, chronic kidney disease, stage IV, anemia was brought to the emergency room because she was nonverbal. Patient started on HD and improved, was also seen by cardiology and was determined not to be a candidate for ACEI/ARB due to renal failure, but will be considered outpatient with GI. Nephrology decided patient was endstage renal failure and patient had a portcath placed. Acute toxic metabolic encephalopathy - Likely from Uremia and +/- GI bleed - Resolved Anemia secondary to GI bleed - Patient hemoglobin this morning is 8.7, no gonzalez bleeding overnight -Colonoscopy was unrevealing as to source of bleed, but old blood was noted scattered - Continue Protonix Chronic kidney disease with uremic encephalopathy - Continue hemodialysis per nephrology - patient will have port cath TODAY Hypertension - Currently controlled without any blood pressure medication stable cardimoyopathy with EF of 20-25% - Cardiology consult appreciated -Not a candidate for ACEI OR ARB AT THIS TIME. RE-EVALUATE OUTPATIENT -OUTPATIENT STRESS TEST Moderate Pulmonary HTN-RVSP 52mmHg. HTN -Continue current therapy Hypokalemia -Replaced Diabetes mellitus with diabetic nephropathy -Continue Insulin DVT prophylaxis - SCD because of GI bleed Disposition - Patient need O/P dialysis set up History Interval history: Patient seen and examined in no acute distress. Hospitalist Physical - Physical exam Narrative exam: VITAL SIGNS: Reviewed. GENERAL: The patient appeared well nourished and normally developed. Vital signs as documented. HEAD: No signs of head trauma. EYES: Pupils are equal. Extraocular motions intact. EARS: Hearing grossly intact. MOUTH: Oropharynx is normal. NECK: No adenopathy, no JVD. CHEST: Chest with clear breath sounds bilaterally. No wheezes, rales, or rhonchi. CARDIAC: Regular rate and rhythm. S1 and S2, without murmurs, gallops, or rubs. VASCULAR: No Edema. Peripheral pulses normal and equal in all extremities. ABDOMEN: Soft, without detectable tenderness. No sign of distention. No rebound or guarding, and no masses palpated. Bowel Sounds normal. MUSCULOSKELETAL: Good range of motion of all major joints. Extremities without clubbing, cyanosis or edema. NEUROLOGIC EXAM: Alert and oriented x 3. No focal sensory or strength deficits. Speech normal. Follows commands. PSYCHIATRIC: Mood normal. SKIN: No rash or lesions. - Constitutional Vitals: Temp Pulse Resp BP Pulse Ox 97.5 F L 76 20 121/66 100 10/07/16 13:08 10/07/16 14:34 10/07/16 13:08 10/07/16 13:08 10/07/16 08:15 General appearance: Present: no acute distress Results - Labs CBC & Chem 7: 10/07/16 07:06 10/07/16 07:06 Labs: Laboratory Last Values WBC 6.8 K/mm3 (4.5-11.0) 10/07/16 07:06 RBC 3.16 M/mm3 (3.65-5.03) L 10/07/16 07:06 Hgb 8.7 gm/dl (10.1-14.3) L 10/07/16 07:06 Hct 26.7 % (30.3-42.9) L 10/07/16 07:06 MCV 85 fl (79-97) 10/07/16 07:06 MCH 27 pg (28-32) L 10/07/16 07:06 MCHC 33 % (30-34) 10/07/16 07:06 RDW 17.0 % (13.2-15.2) H 10/07/16 07:06 Plt Count 141 K/mm3 (140-440) 10/07/16 07:06 Lymph % (Auto) 15.9 % (13.4-35.0) 10/07/16 07:06 [place] % (Auto) 14.3 % (0.0-7.3) H 10/07/16 07:06 Eos % (Auto) 2.0 % (0.0-4.3) 10/07/16 07:06 Baso % (Auto) 0.6 % (0.0-1.8) 10/07/16 07:06 Lymph # 1.1 K/mm3 (1.2-5.4) L 10/07/16 07:06 [place] # 1.0 K/mm3 (0.0-0.8) H 10/07/16 07:06 Eos # 0.1 K/mm3 (0.0-0.4) 10/07/16 07:06 Baso # 0.0 K/mm3 (0.0-0.1) 10/07/16 07:06 Seg Neutrophils % 67.2 % (40.0-70.0) 10/07/16 07:06 Seg Neutrophils # 4.6 K/mm3 (1.8-7.7) 10/07/16 07:06 PT 16.7 Sec. (12.2-14.9) H 09/30/16 19:35 INR 1.36 (0.87-1.13) H 09/30/16 19:35 APTT 39.8 Sec. (24.2-36.6) H 09/30/16 19:35 Thrombin Time 17.9 Sec. (15.1-19.6) 09/30/16 19:35 Sodium 136 mmol/L (137-145) L 10/07/16 07:06 Potassium 3.7 mmol/L (3.6-5.0) 10/07/16 07:06 Chloride 96.0 mmol/L (98-107) L 10/07/16 07:06 Carbon Dioxide 23 mmol/L (22-30) 10/07/16 07:06 Anion Gap 21 mmol/L 10/07/16 07:06 BUN 34 mg/dL (7-17) H 10/07/16 07:06 Creatinine 5.5 mg/dL (0.7-1.2) H 10/07/16 07:06 Estimated GFR 10 ml/min 10/07/16 07:06 BUN/Creatinine Ratio 6.18 % 10/07/16 07:06 Glucose 134 mg/dL (65-100) H 10/07/16 07:06 POC Glucose 162 (70-105) H 10/07/16 14:35 Lactic Acid 1.30 mmol/L (0.7-2.0) 10/02/16 15:29 Calcium 8.2 mg/dL (8.4-10.2) L 10/07/16 07:06 Total Bilirubin 1.00 mg/dL (0.1-1.2) 10/03/16 06:53 Direct Bilirubin 0.5 mg/dL (0-0.2) H 10/03/16 06:53 Indirect Bilirubin 0.5 mg/dL 10/03/16 06:53 AST 24 units/L (5-40) 10/03/16 06:53 ALT 7 units/L (7-56) 10/03/16 06:53 Alkaline Phosphatase 191 units/L (35-129) H 10/03/16 06:53 Ammonia 104.0 umol/L (25-60) H 10/02/16 08:44 Total Creatine Kinase 125 units/L (30-135) 10/01/16 06:59 CK-MB (CK-2) 3.0 ng/mL (0.0-4.0) 10/01/16 06:59 CK-MB (CK-2) Rel Index 2.4 (0-4) 10/01/16 06:59 Troponin T 0.143 ng/mL (0.00-0.029) H* 10/01/16 06:59 Serum Total Protein 7.7 g/dL (6.1-8.1) 10/01/16 09:54 Total Protein 7.2 g/dL (6.3-8.2) 10/03/16 06:53 Albumin 3.6 g/dL (3.9-5) L 10/03/16 06:53 Albumin/Globulin Ratio 1.0 % 10/03/16 06:53 Zeidn-0-Wodmkbpmw 0.5 g/dL (0.2-0.3) H 10/01/16 09:54 Opapf-8-Kndvdxpqn 0.8 g/dL (0.5-0.9) 10/01/16 09:54 Beta Globulins 0.4 g/dL (0.2-0.5) 10/01/16 09:54 Gamma Globulins 1.8 g/dL (0.8-1.7) H 10/01/16 09:54 Abnorm Protein Band 1 see below 10/01/16 09:54 PEP Interpretation see below H 10/01/16 09:54 Triglycerides 164 mg/dL (2-149) H 09/30/16 19:35 Cholesterol 159 mg/dL (50-199) 09/30/16 19:35 LDL Cholesterol Direct 89 mg/dL (50-130) 09/30/16 19:35 HDL Cholesterol 38 mg/dL (40-59) L 09/30/16 19:35 Cholesterol/HDL Ratio 4.18 % 09/30/16 19:35 TSH 2.160 mlU/mL (0.270-4.200) 09/30/16 20:15 Urine Color Yellow (Yellow) 09/30/16 22:44 Urine Turbidity Clear (Clear) 09/30/16 22:44 Urine pH 7.0 (5.0-7.0) 09/30/16 22:44 Ur Specific [place] 1.009 (1.003-1.030) 09/30/16 22:44 Urine Protein 100 mg/dl mg/dL (Negative) 09/30/16 22:44 Urine Glucose (UA) 50 mg/dL (Negative) 09/30/16 22:44 Urine Ketones Neg mg/dL (Negative) 09/30/16 22:44 Urine Blood Sm (Negative) 09/30/16 22:44 Urine Nitrite Neg (Negative) 09/30/16 22:44 Urine Bilirubin Neg (Negative) 09/30/16 22:44 Urine Urobilinogen < 2.0 mg/dL (<2.0) 09/30/16 22:44 Ur Leukocyte Esterase Neg (Negative) 09/30/16 22:44 Urine WBC (Auto) 1.0 /HPF (0.0-6.0) 09/30/16 22:44 Urine RBC (Auto) 4.0 /HPF (0.0-6.0) 09/30/16 22:44 U Epithel Cells (Auto) 3.0 /HPF (0-13.0) 09/30/16 22:44 Urine Bacteria (Auto) 1+ /HPF (Negative) 09/30/16 22:44 Urine Creatinine 47.0 mg/dL (0.1-20.0) H 10/01/16 08:38 Protein/Creatinin Ratio 4.06 10/01/16 08:38 Urine Sodium 93 mEq/L 10/01/16 08:38 Urine Total Protein 191 mg/dL (5-11.8) H 10/01/16 08:38 Salicylates < 0.3 mg/dL (2.8-20.0) L 09/30/16 20:15 Urine Opiates Screen Presumptive negative 09/30/16 22:44 Urine Methadone Screen Presumptive negative 09/30/16 22:44 Acetaminophen < 15.0 ug/mL (10.0-30.0) 09/30/16 20:15 Ur Barbiturates Screen Presumptive negative 09/30/16 22:44 Ur Phencyclidine Scrn Presumptive negative 09/30/16 22:44 Ur Amphetamines Screen Presumptive negative 09/30/16 22:44 U Benzodiazepines Scrn Presumptive negative 09/30/16 22:44 Urine Cocaine Screen Presumptive negative 09/30/16 22:44 U Marijuana (THC) Screen Presumptive negative 09/30/16 22:44 Drugs of Abuse Note Disclamer 09/30/16 22:44 SANGEETHA Screen Negative (Negative) 10/01/16 09:54 Proteinase 3 (PR3) Ab <1.0 AI (<1.0) 10/01/16 09:54 Myeloperoxidase Ab <1.0 AI (<1.0) 10/01/16 09:54 Hepatitis A IgM Ab Non-reactive (NonReactive) 10/01/16 09:54 Hep Bs Antigen Non-reactive (Negative) 10/01/16 09:54 Hep B Core IgM Ab Non-reactive (NonReactive) 10/01/16 09:54 Hepatitis C Antibody Non-reactive (NonReactive) 10/01/16 09:54 Blood Type O POSITIVE 10/04/16 10:42 Antibody Screen Negative 10/04/16 10:42 Crossmatch See Detail 10/04/16 10:42
[2016-10-07] MEDS: PROTONIX PO SCH (16:17)
[2016-10-07] MEDS: NACL 0.9% 1000 ML 1,000 ML IV SCH (21:19)
[2016-10-08] MEDS: NOVOLOG SUB-Q SCH ×4 (00:19→18:34)
[2016-10-08] MEDS: CEPHULAC PO SCH ×4 (00:19→18:40)
[2016-10-08 06:56] LABS: Basophils % (Auto) 0.5 % (0.0-1.8); Eosinophils % (Auto) 1.7 % (0.0-4.3); Hematocrit 25.9 % (30.3-42.9); Hemoglobin 8.5 gm/dl (10.1-14.3); Mean Corpuscular HGB Conc 33 % (30-34); Mean Corpuscular Hemoglobin 28 pg (28-32); Mean Corpuscular Volume 84 fl (79-97); Platelet Count 147 K/mm3 (140-440); Red Cell Distribution Width 17.1 % (13.2-15.2); White Blood Count 5.4 K/mm3 (4.5-11.0)
[2016-10-08 07:17] LABS: BUN/Creatinine Ratio 4.44; Calcium 8.8 mg/dL (8.4-10.2); Chloride 97.8 mmol/L (98-107); Potassium 3.8 mmol/L (3.6-5.0)
[2016-10-08] MEDS: COREG PO SCH ×2 (09:22→22:39)
[2016-10-08] MEDS: NORVASC PO SCH (09:23)
[2016-10-08] MEDS: PROTONIX PO SCH (09:23)
--- NOTE | 2016-10-08 09:59 | Discharge Summary ---
Providers - Providers Date of Admission: 09/30/16 22:47 Attending physician: SOCORRO RAI MD 10/01/16 00:48 Consult to Physician [CONS] Routine Consulting Provider: NEREIDA RDZ Reason For Exam: RECTAL BLEED Notified:: nursing secretary pl call 10/01/16 05:29 Consult to Physician [CONS] Routine Consulting Provider: DAYAMI MAYBERRY Reason For Exam: ab ce Notified:: nursing secretary pl call 10/01/16 12:58 Consult to Physician [CONS] Routine Consulting Provider: SARAH GALINDO Reason For Exam: perm cath placement Place consult to:: Dr. Ackerman Notified:: yes Comment:: already seen patient Primary care physician: VENEER LATHE OPERATOR Hospitalization Reason for admission: ams Condition: Serious Hospital course: 61 year old woman with a history of hypertension, diabetes, CHF, chronic kidney disease, stage IV, anemia was brought to the emergency room because she was nonverbal. Patient started on HD and improved, was also seen by cardiology and was determined not to be a candidate for ACEI/ARB due to renal failure, but will be considered outpatient with GI. Nephrology decided patient was endstage renal failure and patient had a portcath placed. following management in the hospital patient was noted to have had encephalopathy secondary to Uremia- Patient was started on Dialysis and transitioned to ESRD due to clincal condition, patient was noted have anemia with no gonzalez bleeding. 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 Hypokalemia Diabetes mellitus with diabetic nephropathy Disposition: DC/TX-06 HOME [facility] Time spent for discharge: 35 MINS Core Measure Documentation - Palliative Care Palliative Care/ Comfort Measures: Not Applicable - Core Measures Any of the following diagnoses?: none - VTE Discharge Requirements Deep Vein Thrombosis/Pulmonary Embolism Present on Admission: No Exam - Physical Exam Narrative exam: VITAL SIGNS: Reviewed. GENERAL: The patient appeared well nourished and normally developed. Vital signs as documented. HEAD: No signs of head trauma. EYES: Pupils are equal. Extraocular motions intact. EARS: Hearing grossly intact. MOUTH: Oropharynx is normal. NECK: No adenopathy, no JVD. CHEST: Chest with clear breath sounds bilaterally. No wheezes, rales, or rhonchi. CARDIAC: Regular rate and rhythm. S1 and S2, without murmurs, gallops, or rubs. VASCULAR: No Edema. Peripheral pulses normal and equal in all extremities. ABDOMEN: Soft, without detectable tenderness. No sign of distention. No rebound or guarding, and no masses palpated. Bowel Sounds normal. MUSCULOSKELETAL: Good range of motion of all major joints. Extremities without clubbing, cyanosis or edema. NEUROLOGIC EXAM: Alert and oriented x 3. No focal sensory or strength deficits. Speech normal. Follows commands. PSYCHIATRIC: Mood normal. SKIN: No rash or lesions. - Constitutional Vitals: Temp Pulse Resp BP Pulse Ox 98.6 F 70 22 124/61 99 10/08/16 08:40 10/08/16 09:23 10/08/16 08:40 10/08/16 09:23 10/08/16 08:45 Plan Activity: advance as tolerated, fall precautions Diet: renal Special Instructions: record daily weights, record daily BP diary Additional Instructions: Follow dialysis schedule Follow up with: FAITH STEPHNES MD [Primary Care Provider] - 3-5 Days ALAN MORENO MD [Staff Physician] - 7 Days DAYAMI MAYBERRY MD [Staff Physician] - 7 Days SARAH GALINDO MD [Staff Physician] - 7 Days
--- NOTE | 2016-10-08 11:13 | Progress Note ---
Assessment and Plan Assessment: GI bleed / anemia - stable AMS / encephalopathy - head CT with NAF; improved. 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 Moderate pulmonary HTN - RVSP 52mmHg. Lactic acidosis Elevated troponin - minimally elevated and flat with CK-MB WNL. ARF on CKD - requiring HD HTN DM Hypokalemia - repleted. Plan: Currently stable cardiac status. Cont Coreg. No ACEI/ARB in setting of ARF. Plan for ischemic evaluation (lexiscan MPI) in AM. NPO after MN. Assessment and plan reviewed with pt at bedside. The patient has been seen in conjunction with Dr. Groves who agrees with the assessment and plan of care. Subjective Date of service: 10/08/16 Principal diagnosis: GI bleed Interval history: Pt resting in bed, A&O, no complaints. VSS. Objective Last Vital Signs Temp 98.6 F 10/08/16 08:40 Pulse 70 10/08/16 09:23 Resp 22 10/08/16 08:40 BP 124/61 10/08/16 09:23 Pulse Ox 99 10/08/16 08:45 - Physical Examination General: Appears Well, No Apparent Distress HEENT: Positive: PERRL, Normocephaly, Mucus Membranes Moist Neck: Positive: neck supple, trachea midline Cardiac: Positive: Reg Rate and Rhythm, S1/S2 Lungs: Positive: clear to auscultation Neuro: Positive: Grossly Intact, Cranial Nerve 2-12 Intact Abdomen: Positive: Unremarkable, Soft, Active Bowel Sounds. Negative: Tender Skin: Positive: Clear. Negative: Rash, Wound Musculoskeletal: No Fluid Collection, No Pain, Normal Range of Motion Extremities: Absent: edema - Labs and Meds CBC 10/08/16 Range/Units 06:24 WBC 5.4 (4.5-11.0) K/mm3 RBC 3.10 L (3.65-5.03) M/mm3 Hgb 8.5 L (10.1-14.3) gm/dl Hct 25.9 L (30.3-42.9) % Plt Count 147 (140-440) K/mm3 Lymph # 1.4 (1.2-5.4) K/mm3 [place] # 0.8 (0.0-0.8) K/mm3 Eos # 0.1 (0.0-0.4) K/mm3 Baso # 0.0 (0.0-0.1) K/mm3 Comprehensive Metabolic Panel 10/01/16 10/08/16 Range/Units 08:38 06:24 Sodium 137 (137-145) mmol/L Potassium 3.8 (3.6-5.0) mmol/L Chloride 97.8 L (98-107) mmol/L Carbon Dioxide 24 (22-30) mmol/L BUN 16 (7-17) mg/dL Creatinine 3.6 H (0.7-1.2) mg/dL Glucose 109 H (65-100) mg/dL Calcium 8.8 (8.4-10.2) mg/dL Albumin See scanned report - Imaging and Cardiology EKG: image reviewed Echo: report reviewed (10/01/2016: EF 20 - 25%, mild LVH, mild MR, pseudonormalization) - EKG Sinus rhythms and dysrhythmias: sinus rhythm Repolarization changes or abnormalities: nonspecific abnormality, ST segment, and/or T wave
--- NOTE | 2016-10-08 15:33 | Progress Note ---
Subjective Principal diagnosis: GI bleed Interval history: Patient was evaluated today for follow-up on multiple renal related issues Patient denies any shortness of breath She is more oriented today Vital labs intake and output medications were reviewed Current medications: Reviewed Social history:Reviewed Family history: Reviewed General: No acute distress HEENT: No uremic order oral mucosa moist Neck: Supple without any thyromegaly mass or JVD Chest: Clear to auscultation occasional basilar crackles posteriorly Heart: Regular rate and rhythm S1 and S2 heard no S3-S4 Abdomen: Soft nontender no voluntary guarding rigidity or rebound Extremity: Dry skin minimal edema Psychiatry: No agitation and aggression noted Assessment and plan Advanced renal failure in a patient who has been initiated on renal replacement therapy, She will be kept on dialysis 3 times a week Thursday for now Severe anemia GI bleed to monitor and follow erythropoietin with hemodialysis History of advanced renal failure stage IV was seeing Leif Encephalopathy appears to be improving Blood pressure has been borderline low would like to reduce the beta yasmany Monitor renal related labs Patient has nearly 2 g of proteinuria by protein creatinine ratio Patient likely will require an outpatient dialysis spot needs to be arranged Continue with supportive care physical therapy rehabilitation We'll continue to follow and make recommendations from renal standpoint Objective - Vital Signs Vital signs: Vital Signs - 12hr 10/08/16 10/08/16 10/08/16 04:00 08:40 08:45 Temperature 98.1 F 98.6 F Pulse Rate 58 L 70 Respiratory 18 22 Rate Blood Pressure 104/51 125/61 O2 Sat by Pulse 97 99 99 Oximetry 10/08/16 10/08/16 10/08/16 09:22 09:23 12:20 Temperature 98.4 F Pulse Rate 70 70 70 Respiratory 20 Rate Blood Pressure 124/61 124/61 116/59 O2 Sat by Pulse 100 Oximetry - Lab 10/08/16 06:24 10/08/16 06:24 Most recent lab results Calcium 8.8 mg/dL (8.4-10.2) 10/08/16 06:24 Urine Creatinine 47.0 mg/dL (0.1-20.0) H 10/01/16 08:38 Urine Sodium 93 mEq/L 10/01/16 08:38 Urine Total Protein 191 mg/dL (5-11.8) H 10/01/16 08:38
--- NOTE | 2016-10-08 17:36 | Progress Note ---
Assessment and Plan Assessment and plan: 61 year old woman with a history of hypertension, diabetes, CHF, chronic kidney disease, stage IV, anemia was brought to the emergency room because she was nonverbal. Patient started on HD and improved, was also seen by cardiology and was determined not to be a candidate for ACEI/ARB due to renal failure, but will be considered outpatient with GI. Nephrology decided patient was endstage renal failure and patient had a portcath placed. 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 RE-EVALUATE OUTPATIENT -OUTPATIENT STRESS TEST Moderate Pulmonary HTN-RVSP 52mmHg. * Stress test in AM HTN -Continue current therapy Hypokalemia -Replaced Diabetes mellitus with diabetic nephropathy -Continue Insulin DVT prophylaxis - SCD because of GI bleed Disposition - pending stress test. History Interval history: Patient seen and examined in no acute distress. Resting comfortably, no adverse event reported by nursing staff. Hospitalist Physical - Physical exam Narrative exam: VITAL SIGNS: Reviewed. GENERAL: The patient appeared well nourished and normally developed. Vital signs as documented. HEAD: No signs of head trauma. EYES: Pupils are equal. Extraocular motions intact. EARS: Hearing grossly intact. MOUTH: Oropharynx is normal. NECK: No adenopathy, no JVD. CHEST: Chest with clear breath sounds bilaterally. No wheezes, rales, or rhonchi. CARDIAC: Regular rate and rhythm. S1 and S2, without murmurs, gallops, or rubs. VASCULAR: No Edema. Peripheral pulses normal and equal in all extremities. ABDOMEN: Soft, without detectable tenderness. No sign of distention. No rebound or guarding, and no masses palpated. Bowel Sounds normal. MUSCULOSKELETAL: Good range of motion of all major joints. Extremities without clubbing, cyanosis or edema. NEUROLOGIC EXAM: Alert and oriented x 3. No focal sensory or strength deficits. Speech normal. Follows commands. PSYCHIATRIC: Mood normal. SKIN: No rash or lesions. - Constitutional Vitals: Temp Pulse Resp BP Pulse Ox 98.4 F 70 20 116/59 100 10/08/16 12:20 10/08/16 12:20 10/08/16 12:20 10/08/16 12:20 10/08/16 12:20 General appearance: Present: no acute distress Results - Labs CBC & Chem 7: 10/08/16 06:24 10/08/16 06:24 Labs: Laboratory Last Values WBC 5.4 K/mm3 (4.5-11.0) 10/08/16 06:24 RBC 3.10 M/mm3 (3.65-5.03) L 10/08/16 06:24 Hgb 8.5 gm/dl (10.1-14.3) L 10/08/16 06:24 Hct 25.9 % (30.3-42.9) L 10/08/16 06:24 MCV 84 fl (79-97) 10/08/16 06:24 MCH 28 pg (28-32) 10/08/16 06:24 MCHC 33 % (30-34) 10/08/16 06:24 RDW 17.1 % (13.2-15.2) H 10/08/16 06:24 Plt Count 147 K/mm3 (140-440) 10/08/16 06:24 Lymph % (Auto) 26.0 % (13.4-35.0) 10/08/16 06:24 [place] % (Auto) 14.1 % (0.0-7.3) H 10/08/16 06:24 Eos % (Auto) 1.7 % (0.0-4.3) 10/08/16 06:24 Baso % (Auto) 0.5 % (0.0-1.8) 10/08/16 06:24 Lymph # 1.4 K/mm3 (1.2-5.4) 10/08/16 06:24 [place] # 0.8 K/mm3 (0.0-0.8) 10/08/16 06:24 Eos # 0.1 K/mm3 (0.0-0.4) 10/08/16 06:24 Baso # 0.0 K/mm3 (0.0-0.1) 10/08/16 06:24 Seg Neutrophils % 57.7 % (40.0-70.0) 10/08/16 06:24 Seg Neutrophils # 3.1 K/mm3 (1.8-7.7) 10/08/16 06:24 PT 16.7 Sec. (12.2-14.9) H 09/30/16 19:35 INR 1.36 (0.87-1.13) H 09/30/16 19:35 APTT 39.8 Sec. (24.2-36.6) H 09/30/16 19:35 Thrombin Time 17.9 Sec. (15.1-19.6) 09/30/16 19:35 Sodium 137 mmol/L (137-145) 10/08/16 06:24 Potassium 3.8 mmol/L (3.6-5.0) 10/08/16 06:24 Chloride 97.8 mmol/L (98-107) L 10/08/16 06:24 Carbon Dioxide 24 mmol/L (22-30) 10/08/16 06:24 Anion Gap 19 mmol/L 10/08/16 06:24 BUN 16 mg/dL (7-17) 10/08/16 06:24 Creatinine 3.6 mg/dL (0.7-1.2) H 10/08/16 06:24 Estimated GFR 16 ml/min 10/08/16 06:24 BUN/Creatinine Ratio 4.44 % 10/08/16 06:24 Glucose 109 mg/dL (65-100) H 10/08/16 06:24 POC Glucose 159 (70-105) H 10/08/16 12:22 Lactic Acid 1.30 mmol/L (0.7-2.0) 10/02/16 15:29 Calcium 8.8 mg/dL (8.4-10.2) 10/08/16 06:24 Total Bilirubin 1.00 mg/dL (0.1-1.2) 10/03/16 06:53 Direct Bilirubin 0.5 mg/dL (0-0.2) H 10/03/16 06:53 Indirect Bilirubin 0.5 mg/dL 10/03/16 06:53 AST 24 units/L (5-40) 10/03/16 06:53 ALT 7 units/L (7-56) 10/03/16 06:53 Alkaline Phosphatase 191 units/L (35-129) H 10/03/16 06:53 Ammonia 104.0 umol/L (25-60) H 10/02/16 08:44 Total Creatine Kinase 125 units/L (30-135) 10/01/16 06:59 CK-MB (CK-2) 3.0 ng/mL (0.0-4.0) 10/01/16 06:59 CK-MB (CK-2) Rel Index 2.4 (0-4) 10/01/16 06:59 Troponin T 0.143 ng/mL (0.00-0.029) H* 10/01/16 06:59 Serum Total Protein 7.7 g/dL (6.1-8.1) 10/01/16 09:54 Total Protein 7.2 g/dL (6.3-8.2) 10/03/16 06:53 Albumin 3.6 g/dL (3.9-5) L 10/03/16 06:53 Albumin/Globulin Ratio 1.0 % 10/03/16 06:53 Pstit-7-Lfgogbgut 0.5 g/dL (0.2-0.3) H 10/01/16 09:54 Jvdoq-9-Rpjqyovpq 0.8 g/dL (0.5-0.9) 10/01/16 09:54 Beta Globulins 0.4 g/dL (0.2-0.5) 10/01/16 09:54 Gamma Globulins 1.8 g/dL (0.8-1.7) H 10/01/16 09:54 Abnorm Protein Band 1 see below 10/01/16 09:54 PEP Interpretation see below H 10/01/16 09:54 Triglycerides 164 mg/dL (2-149) H 09/30/16 19:35 Cholesterol 159 mg/dL (50-199) 09/30/16 19:35 LDL Cholesterol Direct 89 mg/dL (50-130) 09/30/16 19:35 HDL Cholesterol 38 mg/dL (40-59) L 09/30/16 19:35 Cholesterol/HDL Ratio 4.18 % 09/30/16 19:35 TSH 2.160 mlU/mL (0.270-4.200) 09/30/16 20:15 Urine Color Yellow (Yellow) 09/30/16 22:44 Urine Turbidity Clear (Clear) 09/30/16 22:44 Urine pH 7.0 (5.0-7.0) 09/30/16 22:44 Ur Specific [place] 1.009 (1.003-1.030) 09/30/16 22:44 Urine Protein 100 mg/dl mg/dL (Negative) 09/30/16 22:44 Urine Glucose (UA) 50 mg/dL (Negative) 09/30/16 22:44 Urine Ketones Neg mg/dL (Negative) 09/30/16 22:44 Urine Blood Sm (Negative) 09/30/16 22:44 Urine Nitrite Neg (Negative) 09/30/16 22:44 Urine Bilirubin Neg (Negative) 09/30/16 22:44 Urine Urobilinogen < 2.0 mg/dL (<2.0) 09/30/16 22:44 Ur Leukocyte Esterase Neg (Negative) 09/30/16 22:44 Urine WBC (Auto) 1.0 /HPF (0.0-6.0) 09/30/16 22:44 Urine RBC (Auto) 4.0 /HPF (0.0-6.0) 09/30/16 22:44 U Epithel Cells (Auto) 3.0 /HPF (0-13.0) 09/30/16 22:44 Urine Bacteria (Auto) 1+ /HPF (Negative) 09/30/16 22:44 Ur Random Creatinine See scanned report 10/01/16 08:38 U Random Total Protein See scanned report 10/01/16 08:38 Urine Creatinine 47.0 mg/dL (0.1-20.0) H 10/01/16 08:38 Protein/Creatinin Ratio See scanned report 10/01/16 08:38 Urine Sodium 93 mEq/L 10/01/16 08:38 Urine Total Protein 191 mg/dL (5-11.8) H 10/01/16 08:38 U Abnormal Prot Band 1 See scanned report 10/01/16 08:38 U Abnormal Prot Band 2 See scanned report 10/01/16 08:38 U Abnormal Prot Band 3 See scanned report 10/01/16 08:38 Salicylates < 0.3 mg/dL (2.8-20.0) L 09/30/16 20:15 Urine Opiates Screen Presumptive negative 09/30/16 22:44 Urine Methadone Screen Presumptive negative 09/30/16 22:44 Acetaminophen < 15.0 ug/mL (10.0-30.0) 09/30/16 20:15 Ur Barbiturates Screen Presumptive negative 09/30/16 22:44 Ur Phencyclidine Scrn Presumptive negative 09/30/16 22:44 Ur Amphetamines Screen Presumptive negative 09/30/16 22:44 U Benzodiazepines Scrn Presumptive negative 09/30/16 22:44 Urine Cocaine Screen Presumptive negative 09/30/16 22:44 U Marijuana (THC) Screen Presumptive negative 09/30/16 22:44 Drugs of Abuse Note Disclamer 09/30/16 22:44 SANGEETHA Screen Negative (Negative) 10/01/16 09:54 Proteinase 3 (PR3) Ab <1.0 AI (<1.0) 10/01/16 09:54 Myeloperoxidase Ab <1.0 AI (<1.0) 10/01/16 09:54 Hepatitis A IgM Ab Non-reactive (NonReactive) 10/01/16 09:54 Hep Bs Antigen Non-reactive (Negative) 10/01/16 09:54 Hep B Core IgM Ab Non-reactive (NonReactive) 10/01/16 09:54 Hepatitis C Antibody Non-reactive (NonReactive) 10/01/16 09:54 Blood Type O POSITIVE 10/04/16 10:42 Antibody Screen Negative 10/04/16 10:42 Crossmatch See Detail 10/04/16 10:42
[2016-10-09] MEDS: CEPHULAC PO SCH ×2 (00:40→06:22)
[2016-10-09] MEDS: NOVOLOG SUB-Q SCH ×2 (00:40→06:18)
[2016-10-09 07:21] LABS: BUN/Creatinine Ratio 4.68; Calcium 8.7 mg/dL (8.4-10.2); Chloride 99.7 mmol/L (98-107); Potassium 3.9 mmol/L (3.6-5.0)
[2016-10-09] MEDS ORDERED: LEXISCAN IV ONE (08:15)
--- NOTE | 2016-10-09 09:49 | Progress Note ---
Assessment and Plan GI bleed / anemia - stable AMS / encephalopathy - head CT with NAF; improved. 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 Moderate pulmonary HTN - RVSP 52mmHg. Lactic acidosis NSTEMI type 2 . ARF on CKD - requiring HD HTN DM Hypokalemia - repleted. rec; cont coreg and norvasc, will consider adin and arb as outpt given new onset hd, no significant ischemia noted on stress Subjective Date of service: 10/09/16 Principal diagnosis: GI bleed Interval history: pt lying in bed no chest pain Objective Vital Signs Temp Pulse Resp BP Pulse Ox 10/09/16 08:38 74 128/59 10/09/16 08:37 76 121/58 10/09/16 08:36 76 122/60 10/09/16 08:35 78 135/57 10/09/16 08:34 71 145/67 10/09/16 08:22 67 133/67 10/09/16 07:32 97.8 F 68 16 118/57 100 10/09/16 04:00 98.3 F 68 18 118/56 97 10/09/16 00:00 98.3 F 87 18 117/60 98 10/08/16 22:39 68 114/57 10/08/16 20:00 98.1 F 68 18 114/57 98 10/08/16 18:54 77 10/08/16 16:55 98.3 F 70 20 107/58 100 10/08/16 12:20 98.4 F 70 20 116/59 100 - Physical Examination General: Appears Well, No Apparent Distress HEENT: Positive: PERRL, Normocephaly, Mucus Membranes Moist Neck: Positive: neck supple, trachea midline Cardiac: Positive: Reg Rate and Rhythm Lungs: Positive: clear to auscultation Neuro: Positive: Grossly Intact, Cranial Nerve 2-12 Intact Abdomen: Positive: Unremarkable, Soft, Active Bowel Sounds. Negative: Tender Skin: Positive: Clear. Negative: Rash, Wound Musculoskeletal: No Fluid Collection, No Pain, Normal Range of Motion Extremities: Absent: edema - Labs and Meds Comprehensive Metabolic Panel 10/09/16 Range/Units 06:50 Sodium 139 (137-145) mmol/L Potassium 3.9 (3.6-5.0) mmol/L Chloride 99.7 (98-107) mmol/L Carbon Dioxide 24 (22-30) mmol/L BUN 22 H (7-17) mg/dL Creatinine 4.7 H (0.7-1.2) mg/dL Glucose 89 (65-100) mg/dL Calcium 8.7 (8.4-10.2) mg/dL - Imaging and Cardiology EKG: image reviewed Pharmacologic stress test: report reviewed (no signficant ischemia, inferior infarcation ef 40%) Echo: report reviewed (10/01/2016: EF 20 - 25%, mild LVH, mild MR, pseudonormalization) - Telemetry EKG Rhythm: Sinus Rhythm - EKG Sinus rhythms and dysrhythmias: sinus rhythm Repolarization changes or abnormalities: nonspecific abnormality, ST segment, and/or T wave
[2016-10-09] MEDS: COREG PO SCH (10:01)
[2016-10-09] MEDS: NORVASC PO SCH (10:01)
[2016-10-09] MEDS: PROTONIX PO SCH (10:01)
[2016-10-09] MEDS ORDERED: NACL 0.9 (PRIMING MACHINE ONLY DIALYSIS) MC ONE (11:11)
--- NOTE | 2016-10-09 11:42 | Progress Note ---
Subjective Principal diagnosis: GI bleed Interval history: Patient was evaluated today for follow-up on multiple renal related issues she has been accepted for outpatient dialysis she has been tolerating dialysis treatment fairly well Vital labs intake and output medications were reviewed Current medications: Reviewed Social history:Reviewed Family history: Reviewed General: No acute distress HEENT: No uremic order oral mucosa moist Neck: Supple without any thyromegaly mass or JVD Chest: Clear to auscultation occasional basilar crackles posteriorly Heart: Regular rate and rhythm S1 and S2 heard no S3-S4 Abdomen: Soft nontender no voluntary guarding rigidity or rebound Extremity: Dry skin minimal edema Psychiatry: alert awake oriented Assessment and plan end-stage renal disease likely in a patient who does have a history of stage IV CK D presented with uremia altered mental status catheter care was also discussed she will need a fistula in the near future possibly in 2-3 weeks Patient will need to continue with renal replacement therapy 3 times a week Pending acceptance at [facility] Encephalopathy appears to have resolved completely Hypertension volume currently doing better Proteinuria due to advanced renal failure GI bleed will need to follow up with gastroenterology service End-stage renal disease related, dietary counseling and education was done We'll continue to follow and make recommendations from renal standpoint Objective - Vital Signs Vital signs: Vital Signs - 12hr 10/09/16 10/09/16 10/09/16 00:00 04:00 07:32 Temperature 98.3 F 98.3 F 97.8 F Pulse Rate 87 68 68 Respiratory 18 18 16 Rate Blood Pressure 117/60 118/56 118/57 O2 Sat by Pulse 98 97 100 Oximetry 10/09/16 10/09/16 10/09/16 08:22 08:34 08:35 Temperature Pulse Rate 67 71 78 Respiratory Rate Blood Pressure 133/67 145/67 135/57 O2 Sat by Pulse Oximetry 10/09/16 10/09/16 10/09/16 08:36 08:37 08:38 Temperature Pulse Rate 76 76 74 Respiratory Rate Blood Pressure 122/60 121/58 128/59 O2 Sat by Pulse Oximetry 10/09/16 10/09/16 10/09/16 10:05 10:10 10:15 Temperature 98.0 F Pulse Rate 71 72 72 Respiratory 18 Rate Blood Pressure 103/47 118/50 114/56 O2 Sat by Pulse Oximetry 10/09/16 10/09/16 10/09/16 10:30 10:45 11:00 Temperature Pulse Rate 71 71 73 Respiratory Rate Blood Pressure 121/52 115/46 125/55 O2 Sat by Pulse Oximetry 10/09/16 11:15 Temperature Pulse Rate 72 Respiratory Rate Blood Pressure 119/52 O2 Sat by Pulse Oximetry - Lab 10/08/16 06:24 10/09/16 06:50 Most recent lab results Calcium 8.7 mg/dL (8.4-10.2) 10/09/16 06:50 Urine Creatinine 47.0 mg/dL (0.1-20.0) H 10/01/16 08:38 Urine Sodium 93 mEq/L 10/01/16 08:38 Urine Total Protein 191 mg/dL (5-11.8) H 10/01/16 08:38
[2016-10-09 14:24] VITALS: BP 136/62
[2016-10-09] MEDS: HEPARIN IV PRN (14:53)
--- NOTE | 2016-10-10 03:52 | Treadmill Report ---
PROCEDURE: Cardiac nuclear perfusion study. REASON FOR STUDY: Abnormal troponins. READING PHYSICIAN: Rickey Glass MD. IMAGING PROTOCOL: The patient received 10 mCi of Technetium 99m Tetrofosmin for resting image and 28 mCi of Technetium 99m Tetrofosmin for stress imaging. The imaging for the whole procedure was completed 30-90 minutes following the initial injection of Technetium 99m tetrofosmin. The SPECT imaging in the 180 degree arc was performed in the right anterior oblique projection. Computerized reconstruction of the images was performed for analysis. IMAGING RESULTS: lv_ is mildly dilated on both stress and rest. Distribution radionuclide is normal in the anterior, septal, lateral, and apical regions, mild decrease in inferior region on both seen in stress and rest with gated SPECT, EF 40% with mild global hypokinesis. The patient infused Lexiscan with no EKG changes. SUMMARY: 1. Negative Lexiscan EKG. 2. No significant stress induced ischemia. 3. There is mild to moderate fixed inferior defect suggestive of prior infarction, but no significant ischemia noted with mildly dilated LV with normal perfusion in anterior, septal, lateral, and apical regions with EF approximately 40% with mild to moderate global hypokinesis. JOB# [id number] JUDIE/TURNER MANZANO
== END 2016-10-09 15:16 | disposition home health service (06) | DRG 981 ==
LOC: ED 19:29 → 4A 22:47 → CC1 10-01 20:37 → 4A 10-04 20:40
PROVIDERS: ADMIT Internal Medicine; ATTEND Internal Medicine
PROC: 30233N1 Transfusion of Nonautologous Red Blood Cells into Peripheral Vein, Percutaneous Approach (ICD-10-PCS; 2016-09-30)
PROC: 5A1D60Z (ICD-10-PCS; 2016-09-30)
PROC: 02PY33Z Removal of Infusion Device from Great Vessel, Percutaneous Approach (ICD-10-PCS; principal; 2016-10-02)
PROC: 3E1H88Z Irrigation of Lower GI using Irrigating Substance, Via Natural or Artificial Opening Endoscopic (ICD-10-PCS; principal; 2016-10-02)
PROC: 0DJ08ZZ Inspection of Upper Intestinal Tract, Via Natural or Artificial Opening Endoscopic (ICD-10-PCS; principal; 2016-10-02)
PROC: 0JH63XZ Insertion of Tunneled Vascular Access Device into Chest Subcutaneous Tissue and Fascia, Percutaneous Approach (ICD-10-PCS; 2016-10-07)
PROC: 02H633Z Insertion of Infusion Device into Right Atrium, Percutaneous Approach (ICD-10-PCS; 2016-10-07)
PROC: 02PAX3Z Removal of Infusion Device from Heart, External Approach (ICD-10-PCS; 2016-10-07)
DX: K92.2 Gastrointestinal hemorrhage, unspecified (principal); G93.41 Metabolic encephalopathy; N18.6 End stage renal disease; I21.4 Non-ST elevation (NSTEMI) myocardial infarction; N17.9 Acute kidney failure, unspecified; I50.9 Heart failure, unspecified; E11.21 Type 2 diabetes mellitus with diabetic nephropathy; I27.2 Other secondary pulmonary hypertension; I13.0 Hypertensive heart and chronic kidney disease with heart failure and stage 1 through stage 4 chronic kidney disease, or unspecified chronic kidney disease; D63.8 Anemia in other chronic diseases classified elsewhere; E87.6 Hypokalemia; Z99.2 Dependence on renal dialysis; Z82.49 Family history of ischemic heart disease and other diseases of the circulatory system
CPT/HCPCS: 36415; 36430; 36556; 36558; 70450; 71010; 74000; 74176; 76770; 77001; 78452; 80048; 80061; 80074; 80307; 80320; 81001; 82140; 82550; 82553; 82570; 82962; 84156; 84165; 84166; 84300; 84443; 84484; 85014; 85018; 85025; 85027; 85610; 85670; 85730; 86021; 86038; 86706; 86803; 86850; 86900; 86901; 86920; 93005; 93010; 93017; 93306; 94760; 96374; 96375; 96376; A9502; C1750; C1752; C1769; C9113; G0480; J0690; J0885; J1644; J1815; J2060; J2250; J2405; J2597; J2704; J2785; J3010; J7030; J7040; P9016

== ENCOUNTER 2017-02-03 15:50 | Emergency (ER) | payer MEDICARE, MEDICAID ==
[2017-02-03 17:36] LABS: Basophils % (Auto) 0.8 % (0.0-1.8); Eosinophils % (Auto) 2.6 % (0.0-4.3); Hematocrit 37.7 % (30.3-42.9); Hemoglobin 12.2 gm/dl (10.1-14.3); Mean Corpuscular HGB Conc 32 % (30-34); Mean Corpuscular Hemoglobin 27 pg (28-32); Mean Corpuscular Volume 82 fl (79-97); Platelet Count 125 K/mm3 (140-440); Red Blood Count 4.58 M/mm3 (3.65-5.03); Red Cell Distribution Width 15.8 % (13.2-15.2)
[2017-02-03 17:51] LABS: Calcium 8.3 mg/dL (8.4-10.2); Chloride 100.7 mmol/L (98-107); Potassium 3.7 mmol/L (3.6-5.0)
[2017-02-03] MEDS ORDERED: ATROVENT IH ONE ×2 (17:56→19:24)
[2017-02-03] MEDS ORDERED: PROVENTIL IH ONE (17:57)
--- NOTE | 2017-02-03 18:20 | XRay Report ---
FINAL REPORT EXAM: XR CHEST ROUTINE 2V HISTORY: Shortness of breath TECHNIQUE: PA and lateral views of the chest PRIORS: None. FINDINGS: Lines, tubes, and devices: Double-lumen right jugular catheter terminates in the mid superior vena cava. Lungs and pleura: Trachea is normal in position. Lungs are clear of infiltrate, pleural effusion, vascular congestion, or pneumothorax. Cardiomediastinal silhouette: Cardiac silhouette is borderline enlarged. Calcification of the aorta is seen. Other: Bony structures are intact. IMPRESSION: No acute cardiopulmonary process seen. Cardiac silhouette is borderline enlarged.
[2017-02-03] MEDS ORDERED: PROAIR IH ONE (19:24)
[2017-02-03] MEDS ORDERED: LASIX 100 MG in NACL 0.9% 50 ML IV ONE (19:24)
[2017-02-03] MEDS ORDERED: MAGNESIUM SULFATE 2GM/50ML 2 GM/50 ML BAG IV ONE (19:24)
--- NOTE | 2017-02-03 19:25 | Emergency Department Report ---
ED General Adult HPI - General Chief complaint: Dyspnea/Respdistress Stated complaint: SOB Time Seen by Provider: 02/03/17 19:09 Source: patient, EMS, RN notes reviewed, old records reviewed Mode of arrival: Stretcher Limitations: No Limitations - History of Present Illness Initial comments: This is a 61-year-old female who is previously known to this provider. Patient has a past medical history of hypertension, diabetes, congestive heart failure, end-stage renal disease on dialysis. She received dialysis today, it was of her normal length and duration. Patient's china decorator is Dr. Castillo, she gets dialysis Thursday, , Thursday. Also has a history of congestive heart failure with an EF of 25%. Patient is brought to the hospital today with a complaint of cough, wheezing, shortness of breath. There is no posterior leg pain, there is no leg swelling, no dietary indiscretions, patient denies recent hospitalizations and surgeries. Patient denies chest pain. Patient also complains of productive cough with clear sputum. -: Gradual, days(s) Consistency: intermittent Improves with: rest Worsens with: movement Associated Symptoms: cough, shortness of breath. denies: confusion, chest pain , weakness - Related Data Home Medications Medication Instructions Recorded Confirmed Last Taken Aspirin [Adult Low Dose Aspirin EC] 81 mg PO QDAY 09/30/16 09/30/16 Unknown AtorvaSTATin [Lipitor] 80 mg PO QHS 09/30/16 09/30/16 Unknown Carvedilol [Coreg] 25 mg PO BID 09/30/16 09/30/16 Unknown Cholecalciferol Vit D3 [Vitamin D3] 1 tab PO QDAY 09/30/16 09/30/16 Unknown Clopidogrel Bisulfate [Plavix] 75 mg PO QDAY 09/30/16 09/30/16 Unknown Gabapentin [Neurontin] 300 mg PO TID PRN 09/30/16 09/30/16 Unknown amLODIPine [Norvasc] 10 mg PO QDAY 09/30/16 09/30/16 Unknown hydrALAZINE [Apresoline TAB] 25 mg PO Q8H 09/30/16 09/30/16 Unknown Previous Rx's Medication Instructions Recorded Last Taken Type Albuterol Sulfate [Proair 90 mcg IH Q4HR PRN #2 aer.pow.ba 02/03/17 Unknown Rx Respiclick] Benzonatate [Tessalon Perles] 100 mg PO Q8HR PRN #30 capsule 02/03/17 Unknown Rx Ipratropium [place] [Atrovent Hfa] 12.9 gm IH Q4HR #2 hfa.aer.ad 02/03/17 Unknown Rx predniSONE [Deltasone] 40 mg PO QDAY #8 tab 02/03/17 Unknown Rx Allergies Allergy/AdvReac Type Severity Reaction Status Date / Time No Known Allergies Allergy Unverified 09/30/16 19:33 ED Review of Systems ROS: Stated complaint: SOB Other details as noted in HPI ED Past Medical Hx - Past Medical History Previous Medical History?: Yes Hx Hypertension: Yes Hx Congestive Heart Failure: Yes Hx Diabetes: Yes Hx Renal Disease: Yes (stage 4) - Social History Smoking Status: Current Every Day Smoker Substance Use Type: None - Medications Home Medications: Home Medications Medication Instructions Recorded Confirmed Last Taken Type Aspirin [Adult Low Dose Aspirin EC] 81 mg PO QDAY 09/30/16 09/30/16 Unknown History AtorvaSTATin [Lipitor] 80 mg PO QHS 09/30/16 09/30/16 Unknown History Carvedilol [Coreg] 25 mg PO BID 09/30/16 09/30/16 Unknown History Cholecalciferol Vit D3 [Vitamin D3] 1 tab PO QDAY 09/30/16 09/30/16 Unknown History Clopidogrel Bisulfate [Plavix] 75 mg PO QDAY 09/30/16 09/30/16 Unknown History Gabapentin [Neurontin] 300 mg PO TID PRN 09/30/16 09/30/16 Unknown History amLODIPine [Norvasc] 10 mg PO QDAY 09/30/16 09/30/16 Unknown History hydrALAZINE [Apresoline TAB] 25 mg PO Q8H 09/30/16 09/30/16 Unknown History Albuterol Sulfate [Proair 90 mcg IH Q4HR PRN #2 aer.pow.ba 02/03/17 Unknown Rx Respiclick] Benzonatate [Tessalon Perles] 100 mg PO Q8HR PRN #30 capsule 02/03/17 Unknown Rx Ipratropium [place] [Atrovent Hfa] 12.9 gm IH Q4HR #2 hfa.aer.ad 02/03/17 Unknown Rx predniSONE [Deltasone] 40 mg PO QDAY #8 tab 02/03/17 Unknown Rx ED Physical Exam - General Limitations: No Limitations, Other (right-sided thoracic vascular access catheter is noted, no redness, pus or streaking.) General appearance: alert, in no apparent distress - Head Head exam: Present: atraumatic, normocephalic - Eye Eye exam: Present: normal appearance, EOMI. Absent: nystagmus - ENT ENT exam: Present: normal exam, normal orophraynx, mucous membranes moist, normal external ear exam - Neck Neck exam: Present: normal inspection, full ROM - Respiratory Respiratory exam: Present: wheezes, rhonchi. Absent: respiratory distress - Cardiovascular Cardiovascular Exam: Present: regular rate, normal rhythm, normal heart sounds. Absent: bradycardia, tachycardia, irregular rhythm, systolic murmur, diastolic murmur, rubs, gallop - GI/Abdominal GI/Abdominal exam: Present: soft, normal bowel sounds. Absent: distended, tenderness, guarding, rebound, rigid, pulsatile mass - Extremities Exam Extremities exam: Present: normal inspection, full ROM, pedal edema. Absent: calf tenderness - Back Exam Back exam: Present: normal inspection, full ROM. Absent: tenderness, paraspinal tenderness, vertebral tenderness - Neurological Exam Neurological exam: Present: alert, oriented X3, CN II-XII intact, normal gait, other (Extraocular movements intact. Tongue midline. No facial droop. Facial sensation intact to light touch in the V1, V2, V3 distribution bilaterally. 5 and 5 strength in 4 extremities.. Sensation is intact to light touch in 4 extremities.). Absent: motor sensory deficit - Psychiatric Psychiatric exam: Present: normal affect, normal mood - Skin Skin exam: Present: warm, dry, intact, normal color. Absent: rash ED Course Vital Signs 02/03/17 02/03/17 02/03/17 16:25 16:35 17:31 Temperature 98.2 F Pulse Rate 76 74 Respiratory 19 19 Rate Blood Pressure 165/68 173/78 Blood Pressure [Left] O2 Sat by Pulse 94 94 Oximetry 02/03/17 19:31 Temperature 98.2 F Pulse Rate 75 Respiratory 10 L Rate Blood Pressure Blood Pressure 172/76 [Left] O2 Sat by Pulse 100 Oximetry ED Medical Decision Making - Lab Data Result diagrams: 02/03/17 Unknown 02/03/17 16:34 Vital Signs 1202/03/17 02/03/17 16:25 16:35 17:31 Temperature 98.2 F Pulse Rate 76 74 Respiratory 19 19 Rate Blood Pressure 165/68 173/78 Blood Pressure [Left] O2 Sat by Pulse 94 94 Oximetry 02/03/17 19:31 Temperature 98.2 F Pulse Rate 75 Respiratory 10 L Rate Blood Pressure Blood Pressure 172/76 [Left] O2 Sat by Pulse 100 Oximetry Labs 02/03/17 02/03/17 02/03/17 16:34 19:44 19:44 WBC RBC Hgb Hct MCV MCH MCHC RDW Plt Count Lymph % (Auto) [place] % (Auto) Eos % (Auto) Baso % (Auto) Lymph # [place] # Eos # Baso # Seg Neutrophils % Seg Neutrophils # PT 16.4 H INR 1.25 H APTT 38.3 H Sodium 139 Potassium 3.7 Chloride 100.7 Carbon Dioxide 25 Anion Gap 17 BUN 18 H Creatinine 2.2 H Estimated GFR 28 BUN/Creatinine Ratio 8 Glucose 106 H Calcium 8.3 L Troponin T 0.031 H NT-Pro-B Natriuret Pep 59664 H Triglycerides 104 Cholesterol 144 LDL Cholesterol Direct 69 HDL Cholesterol 55 Cholesterol/HDL Ratio 2.61 02/03/17 Unknown WBC 3.0 L RBC 4.58 Hgb 12.2 Hct 37.7 MCV 82 MCH 27 L MCHC 32 RDW 15.8 H Plt Count 125 L Lymph % (Auto) 40.7 H [place] % (Auto) 11.0 H Eos % (Auto) 2.6 Baso % (Auto) 0.8 Lymph # 1.2 [place] # 0.3 Eos # 0.1 Baso # 0.0 Seg Neutrophils % 44.9 Seg Neutrophils # 1.3 L PT INR APTT Sodium Potassium Chloride Carbon Dioxide Anion Gap BUN Creatinine Estimated GFR BUN/Creatinine Ratio Glucose Calcium Troponin T NT-Pro-B Natriuret Pep Triglycerides Cholesterol LDL Cholesterol Direct HDL Cholesterol Cholesterol/HDL Ratio - EKG Data 02/03/17 21:47 Normal sinus, 74 bpm, prolonged QTC, normal axis, poor R-wave progression, abnormal EKG, not having chest pain, not morphologically consistent with ST elevation myocardial infarction 02/03/17 21:48 EKG today appears to be unchanged from prior EKG from September 2016 - Radiology Data Radiology results: report reviewed, image reviewed X-ray the chest is negative for acute disease, right-sided dialysis access catheter is noted. Evidence of congestive heart failure or pneumonia is - Medical Decision Making Differential diagnosis, including but not limited to: Congestive heart failure, asthma, bronchitis, pneumonia Assessment and plan: 61-year-old female with cough, wheezing, clear mucous, clear chest x-ray, from a volume standpoint, appears to be her baseline, has some lower extremity edema which she reports is chronic in JVD, patient has chronic 3 pillow orthopnea, patient given albuterol, Atrovent, magnesium and Lasix. Her wheezing improved, she reported that she felt much improved, and wants to go home. She was able to walk around the ER without severe symptoms, she did desaturate into the low 90s, I would expect some VQ mismatch. Patient has no pulmonary embolus or DVT risk factors, elevated proBNP is appreciated, this is likely secondary to her underlying chronic congestive heart failure, as well as to her underlying renal insufficiency. However acutely based on the objective data, it does not appear that the patient requires admission for volume overload. She also received dialysis today. Patient has also endorse a desire to go home. Elevated troponin is appreciated , the patient does not endorse chest pain to me, she had a nuclear stress test at this hospital a few months ago, which showed chronic findings but no evidence of acute ischemia. In addition, elevated troponin is likely secondary to underlying renal insufficiency. Therefore think acute coronary syndrome is very unlikely. Critical care attestation.: If time is entered above; I have spent that time in minutes in the direct care of this critically ill patient, excluding procedure time. ED Disposition Clinical Impression: Acute bronchitis Disposition: - TO HOME OR SELFCARE Is pt being admited?: No Does the pt Need Aspirin: No Condition: Stable Instructions: Acute Bronchitis (ED) Additional Instructions: Take the medications as needed/directed. Follow-up with your china decorator or outpatient dialysis on as scheduled. Follow up with the primary care doctor or china decorator within the next week. Return to the ER right away with fevers, chills, chest pain, shortness of breath, confusion, intractable nausea or vomiting, inability to tolerate liquid feeds. Otherwise, continue current outpatient medications, and take the prescribed medications as needed/directed. Referrals: KINGSLEY DYE MD [Primary Care Provider] - 3-5 Days ALAN CASTILLO MD [Staff Physician] - 3-5 Days
[2017-02-03 20:18] LABS: INR 1.25 (0.87-1.13); Partial Thromboplastin Time 38.3 Sec. (24.2-36.6)
[2017-02-03 22:35] VITALS: BP 150/60
== END 2017-02-03 22:36 | disposition home or self-care (01) ==
LOC: ED 15:50
DX: J20.9 Acute bronchitis, unspecified (principal); Z79.82 Long term (current) use of aspirin; I12.9 Hypertensive chronic kidney disease with stage 1 through stage 4 chronic kidney disease, or unspecified chronic kidney disease; E11.22 Type 2 diabetes mellitus with diabetic chronic kidney disease; N18.4 Chronic kidney disease, stage 4 (severe); F17.200 Nicotine dependence, unspecified, uncomplicated; I50.9 Heart failure, unspecified
CPT/HCPCS: 36415; 71020; 80048; 80061; 83880; 84484; 85025; 85610; 85730; 93005; 93010; 94640; 96365; 96367; 96375; 99285; J1940; J2930; J3475